=== PATIENT | male | born 1990 | race Caucasian/White ===

== ENCOUNTER → 2017-04-05 | Outpatient (CLI) | payer BC ==
--- NOTE | 2017-04-05 16:20 | CR ---
EXAMINATION: Lumbar spine HISTORY: Pain COMPARISON: None TECHNIQUE: AP and lateral views FINDINGS: The lumbar spinal alignment is normal. The vertebral body heights and disc spaces appear w ell-maintained. The SI joints are symmetric. Bone mineralization is normal. IMPRESSION: Unremarkable lumbar spine.
== END ==
LOC: MW.CHORTHO 11:19
PROVIDERS: ATTEND Orthopaedic Surgery
DX: M25.551 Pain in right hip (principal)
CPT/HCPCS: 72100; 72100-26

== ENCOUNTER 2017-05-21 07:53 | Emergency (ER) | payer BC ==
[2017-05-21] MEDS ORDERED: Ondansetron 4 MG/2 ML SDV IVPUSH ONE (08:10)
[2017-05-21] MEDS ORDERED: Sodium Chloride 0.9% 2.5 ML Syringe FLUSH PRN (08:10)
[2017-05-21] MEDS ORDERED: Sodium Chloride 0.9% 1,000 ML IV ONE (08:10)
[2017-05-21] MEDS ORDERED: Sodium Chloride 0.9% 10 ML Syringe FLUSH PRN (08:10)
[2017-05-21] MEDS ORDERED: Pantoprazole 40 MG Vial IVPUSH ONE (08:10)
--- NOTE | 2017-05-21 08:15 | EDM.PDOC ---
ED HPI GENERAL MEDICAL PROBLEM - General Chief Complaint: Abdominal Pain Stated Complaint: VOMITING BLOOD Time Seen by Provider: 05/21/17 07:59 - History of Present Illness INITIAL COMMENTS - FREE TEXT/NARRATIVE: HISTORY AND PHYSICAL: History of present illness: The patient is a 26-year-old male who denies any pre-existing medical problems presents with complaints of vomiting that started this morning, initially with food products and then he had just clear liquid with some blood.. The patient states he had some dry heaving and retching with this. He has no abdominal pain and he has not had black or bloody stools or diarrhea. Patient states that he drinks on a daily basis at least 1 pint of alcohol, he also drinks coffee and he has been taking aspirin based OTC products for back pain. He states that when he takes these products into his system he does not get abdominal pain. He says he's been drinking this volume of liquid every day for over one year and this is the first times a minute this is happened. Patient denies dizziness or lightheadedness and has no new chest pain shortness of breath or neurosensory changes in his extremities. He doesn't feel dizzy. Patient did not take any medications for these symptoms prior to arrival. Review of systems: As per history of present illness and below otherwise all systems reviewed and negative. Past medical history: As per history of present illness and as reviewed below otherwise noncontributory. Surgical history: As per history of present illness and as reviewed below otherwise noncontributory. Social history: No reported history of drug or alcohol abuse. Family history: As per history of present illness and as reviewed below otherwise noncontributory. Physical exam: General: Well-developed well-nourished thin man who is nontoxic and vital signs are noted by me. Moves easily in the ED without distress. HEENT: Atraumatic, normocephalic, pupils reactive, negative for conjunctival pallor or scleral icterus, mucous membranes moist, throat clear, neck supple, nontender, trachea midline. Lungs: Clear to auscultation, breath sounds equal bilaterally, chest nontender. Heart: S1S2, regular, negative for clicks, rubs, or JVD. Abdomen: Soft, nondistended, nontender. Normoactive bowel sounds Negative for masses or hepatosplenomegaly. Negative for costovertebral tenderness. Pelvis: Stable nontender. Genitourinary: Deferred. Rectal: Deferred. Extremities: Atraumatic, negative for cords or calf pain. Neurovascular unremarkable. Neuro: Awake, alert, oriented. Cranial nerves II through XII unremarkable. Cerebellum unremarkable. Motor and sensory unremarkable throughout. Exam nonfocal. Skin: Normal turgor no evidence of any rashes or lesions Diagnostics: CBC CMP amylase lipase INR EtOH Therapeutics: IV fluids Zofran protonix Reglan Benadryl The patient had a small amount of vomiting which had some darkish color to it. He is overall feeling better we'll go ahead and give a dose of Reglan and Benadryl. I discussed with the patient and his girlfriend at length all testing results and the need to go on antacids, control nausea and vomiting, behavioral changes with his alcohol caffeine use and to stop aspirin product usage. Also discussed with him the slight bump in his AST and ALT need to reduce and/or stop alcohol use. Patient has a provider at [facility], Dr Skaggs, which I encouraged him to follow-up with and I will refer him to our surgery clinic as well as he will likely need endoscopy. He states understanding and I've advised him on reasons to return Impression: Vomiting with some hematemesis, likely gastritis, and history of chronic alcohol and caffeine use and recent aspirin product usage Definitive disposition and diagnosis as appropriate pending reevaluation and review of above. - Related Data Allergies Allergy/AdvReac Type Severity Reaction Status Date / Time hydrocodone Allergy Intermediate Vomiting Verified 07/26/14 21:18 Home Meds: Home Meds . [No Known Home Meds] 07/26/14 [History] Past Medical History - Past Health History Medical/Surgical History: Denies Medical/Surgical History - Infectious Disease History Infectious Disease History: Reports: Chicken Pox, Mononucleosis Social & Family History - Tobacco Use Smoking Status *Q: Never Smoker Years of Tobacco use: 10 Used Tobacco, but Quit: No Second Hand Smoke Exposure: No - Caffeine Use Caffeine Use: Reports: Coffee - Alcohol Use Days Per Week of Alcohol Use: 5 Number of Drinks Per Day: 7 Total Drinks Per Week: 35 - Recreational Drug Use Recreational Drug Use: No ED ROS GENERAL - Review of Systems Review Of Systems: ROS reveals no pertinent complaints other than HPI. ED EXAM, GENERAL - Physical Exam Exam: See Below (See dictation) Course - Vital Signs Last Recorded V/S: Last Vital Signs Temp 36.4 C 05/21/17 08:01 Pulse 101 H 05/21/17 08:01 Resp 18 05/21/17 08:01 BP 135/101 H 05/21/17 08:01 Pulse Ox 97 05/21/17 08:01 - Orders/Labs/Meds Orders: Active Orders 24 hr Category Date Time Status Metoclopramide [Reglan] Med 05/21/17 09:13 Once 10 mg IV ONETIME ONE Sodium Chloride 0.9% [Saline Flush] Med 05/21/17 08:10 Active 10 ml FLUSH ASDIRECTED PRN Sodium Chloride 0.9% [Saline Flush] Med 05/21/17 08:10 Active 2.5 ml FLUSH ASDIRECTED PRN diphenhydrAMINE [Benadryl] Med 05/21/17 09:13 Once 50 mg IVPUSH ONETIME ONE Saline Lock Insert [OM.PC] Stat Oth 05/21/17 08:09 Ordered Medication Orders Diphenhydramine HCl (Benadryl) 50 mg IVPUSH ONETIME ONE Stop: 05/21/17 09:14 Metoclopramide HCl (Reglan) 10 mg IV ONETIME ONE Stop: 05/21/17 09:14 Sodium Chloride (Saline Flush) 10 ml FLUSH ASDIRECTED PRN PRN Reason: Keep Vein Open Last Admin: 05/21/17 08:28 Dose: 10 ml Sodium Chloride (Saline Flush) 2.5 ml FLUSH ASDIRECTED PRN PRN Reason: Keep Vein Open Last Admin: 05/21/17 08:28 Dose: 2.5 ml Labs: Laboratory Tests 05/21/17 05/21/17 05/21/17 Range/Units 08:13 08:13 08:13 WBC 7.22 (4.0-11.0) K/uL RBC 4.97 (4.50-5.90) M/uL Hgb 16.3 (13.0-17.0) g/dL Hct 46.5 (38.0-50.0) % MCV 93.6 (80.0-98.0) fL MCH 32.8 H (27.0-32.0) pg MCHC 35.1 (31.0-37.0) g/dL RDW Std Deviation 41.9 (28.0-62.0) fl RDW Coeff of Joseline 12 (11.0-15.0) % Plt Count 252 (150-400) K/uL MPV 10.90 (7.40-12.00) fL Neut % (Auto) 41.5 L (48.0-80.0) % Lymph % (Auto) 42.4 H (16.0-40.0) % [place] % (Auto) 12.2 (0.0-15.0) % Eos % (Auto) 2.9 (0.0-7.0) % Baso % (Auto) 1.0 (0.0-1.5) % Neut # (Auto) 3.0 (1.4-5.7) K/uL Lymph # (Auto) 3.1 H (0.6-2.4) K/uL [place] # (Auto) 0.9 H (0.0-0.8) K/uL Eos # (Auto) 0.2 (0.0-0.7) K/uL Baso # (Auto) 0.1 (0.0-0.1) K/uL Nucleated RBC % 0.0 /100WBC Nucleated RBCs # 0 K/uL INR 1.02 (0.86-1.11) Sodium 143 (136-146) mmol/L Potassium 4.3 (3.5-5.1) mmol/L Chloride 104 (98-110) mmol/L Carbon Dioxide 27 (21-31) mmol/L BUN 22 (6.0-23.0) mg/dL Creatinine 1.1 (0.6-1.5) mg/dL Est Cr Clr Drug Dosing 112.94 mL/min Estimated GFR (MDRD) > 60.0 ml/min Glucose 105 (60-110) mg/dL Calcium 9.6 (8.8-10.8) mg/dL Total Bilirubin 1.1 (0.1-1.5) mg/dL AST 67 H (5-40) IU/L ALT 63 H (8-54) IU/L Alkaline Phosphatase 72 (40-150) Total Protein 8.5 H (6.0-8.0) g/dL Albumin 5.0 (3.5-5.0) g/dL Globulin 3.5 (2.0-3.5) g/dL Albumin/Globulin Ratio 1.4 (1.3-2.8) Amylase 50 (10-90) U/L Lipase 16 (7-80) U/L Ethyl Alcohol 37.2 mg/dL Meds: Medications Generic Name Dose Route Start Last Admin Trade Name Freq PRN Reason Stop Dose Admin Diphenhydramine HCl 50 mg 05/21/17 09:13 Benadryl IVPUSH 05/21/17 09:14 ONETIME ONE Metoclopramide HCl 10 mg 05/21/17 09:13 Reglan IV 05/21/17 09:14 ONETIME ONE Sodium Chloride 10 ml 05/21/17 08:10 05/21/17 08:28 Saline Flush FLUSH 10 ml ASDIRECTED PRN Administration Keep Vein Open Sodium Chloride 2.5 ml 05/21/17 08:10 05/21/17 08:28 Saline Flush FLUSH 2.5 ml ASDIRECTED PRN Administration Keep Vein Open Discontinued Medications Generic Name Dose Route Start Last Admin Trade Name Freq PRN Reason Stop Dose Admin Sodium Chloride 1,000 mls @ 999 mls/hr 05/21/17 08:10 05/21/17 08:25 Normal Saline IV 05/21/17 09:10 999 mls/hr STAT ONE Administration Ondansetron HCl 4 mg 05/21/17 08:10 05/21/17 08:25 Zofran IVPUSH 05/21/17 08:11 4 mg ONETIME ONE Administration Pantoprazole Sodium 80 mg 05/21/17 08:10 05/21/17 08:25 Protonix Iv IVPUSH 05/21/17 08:11 80 mg .BOLUS ONE Administration Departure - Departure Time of Disposition: 09:16 Disposition: Home, Self-Care 01 Condition: Good Clinical Impression: Vomiting Qualifiers: Vomiting type: unspecified Vomiting Intractability: non-intractable Nausea presence: with nausea Qualified Code(s): R11.2 - Nausea with vomiting, unspecified Hematemesis/vomiting blood Qualifiers: Nausea presence: with nausea Qualified Code(s): K92.0 - Hematemesis; R11.0 - Nausea Gastritis Qualifiers: Gastritis type: unspecified gastritis Chronicity: acute Gastritis bleeding: with bleeding Qualified Code(s): K29.01 - Acute gastritis with bleeding - Discharge Information Referrals: PCP,None [Primary Care Provider] - Forms: ED Department Discharge Additional Instructions: The following information is given to patients seen in the emergency department who are being discharged to home. This information is to outline your options for follow-up care. We provide all patients seen in our emergency department with a follow-up referral. The need for follow-up, as well as the timing and circumstances, are variable depending upon the specifics of your emergency department visit. If you don't have a primary care physician on staff, we will provide you with a referral. We always advise you to contact your personal physician following an emergency department visit to inform them of the circumstance of the visit and for follow-up with them and/or the need for any referrals to a consulting specialist. The emergency department will also refer you to a specialist when appropriate. This referral assures that you have the opportunity for followup care with a specialist. All of these measure are taken in an effort to provide you with optimal care, which includes your followup. Under all circumstances we always encourage you to contact your private physician who remains a resource for coordinating your care. When calling for followup care, please make the office aware that this follow-up is from your recent emergency room visit. If for any reason you are refused follow-up, please contact the [facility] emergency department at and ask to speak to the emergency department charge nurse. [address] [place] [address] [facility] Specialty Care-General Surgery Professional Building [address] [place] [id number] Please try to reduce and/or stop alcohol use and stopped using aspirin based products and switch to Tylenol based products for any pain you may have. Please take the Prevacid as prescribed and try to also reduce caffeine intake. Please call and follow-up with primary care, Dr Skaggs, at [facility] and also call our surgery clinic to be evaluated for possible endoscopy. Return to ER as needed and as discussed. Zofran as needed or nausea and vomiting. - My Orders Last 24 Hours: My Active Orders 05/21/17 08:09 Saline Lock Insert [OM.PC] Stat 05/21/17 08:10 Sodium Chloride 0.9% [Saline Flush] 10 ml FLUSH ASDIRECTED PRN Sodium Chloride 0.9% [Saline Flush] 2.5 ml FLUSH ASDIRECTED PRN 05/21/17 09:13 Metoclopramide [Reglan] 10 mg IV ONETIME ONE diphenhydrAMINE [Benadryl] 50 mg IVPUSH ONETIME ONE - Assessment/Plan Last 24 Hours: My Active Orders 05/21/17 08:09 Saline Lock Insert [OM.PC] Stat 05/21/17 08:10 Sodium Chloride 0.9% [Saline Flush] 10 ml FLUSH ASDIRECTED PRN Sodium Chloride 0.9% [Saline Flush] 2.5 ml FLUSH ASDIRECTED PRN 05/21/17 09:13 Metoclopramide [Reglan] 10 mg IV ONETIME ONE diphenhydrAMINE [Benadryl] 50 mg IVPUSH ONETIME ONE
[2017-05-21 08:44] LABS: CHLORIDE,CL 104 mmol/L (98-110); SODIUM,NA 143 mmol/L (136-146)
[2017-05-21] MEDS ORDERED: Metoclopramide 10 MG/2 ML SDV IV ONE (09:13)
[2017-05-21] MEDS ORDERED: diphenhydrAMINE 50 MG/ML SDV IVPUSH ONE (09:13)
[2017-05-21 09:45] VITALS: BP 134/87
== END 2017-05-21 09:45 | disposition home or self-care (01) ==
LOC: MW.ED 07:53
DX: K29.01 Acute gastritis with bleeding (principal); Z88.8 Allergy status to other drugs, medicaments and biological substances
CPT/HCPCS: 80053; 82150; 83690; 85025; 85610; 96361; 96374; 96375; 99285; C9113; G0480; J1200; J2405; J2765; J7040; 99284

== ENCOUNTER 2021-03-22 22:05 | Observation (INO) | payer BC, OTHER ==
[2021-03-22] MEDS ORDERED: chlordiazePOXIDE 25 MG Cap PO ONE (22:08)
[2021-03-22] MEDS ORDERED: MVI, Adult with Vitamin K 10 ML, Thiamine 100 MG, Folic Acid 1 MG in Sodium Chloride 0.... IV ONE ×4 (22:08)
[2021-03-22] MEDS ORDERED: LORazepam 2 MG/ML SDV IVPUSH ONE (22:09)
[2021-03-22] MEDS ORDERED: Dextrose 5%-0.9% NaCl 1,000 ML IV SCH (22:15)
[2021-03-22 22:32] LABS: BLOOD UREA NITROGEN,BUN 3 mg/dL (7.0-18.0); CARBON DIOXIDE,CO2 27.1 mmol/L (21.0-32.0); CHLORIDE,CL 94 mmol/L (98-107); GLUCOSE RANDOM 180 mg/dL (74-106); SODIUM,NA 134 mmol/L (136-148)
[2021-03-22] MEDS ORDERED: Potassium Chloride Riders 40 MEQ in Premix Bag 1 BAG IV ONE (23:04)
[2021-03-22] MEDS ORDERED: Potassium Chloride 10% 20 MEQ/15 ML Soln 30 ML UD Cup PO ONE (23:04)
[2021-03-23] MEDS ORDERED: chlordiazePOXIDE 10 MG Cap PO ONE ×2 (01:24→04:15)
[2021-03-23] MEDS ORDERED: Ondansetron 4 MG/2 ML SDV IVPUSH PRN (01:42)
[2021-03-23] MEDS ORDERED: Albuterol/Ipratropium 3.0-0.5 MG/3 ML Neb Soln NEB PRN (01:42)
[2021-03-23] MEDS ORDERED: LORazepam 2 MG/ML SDV IVPUSH PRN ×2 (01:45→01:49)
--- NOTE | 2021-03-23 03:12 | PCM.EKG ---
#1 Interpretation EKG Date: 03/22/21 Time: 22:59 Rhythm: NSR Rate (Beats/Min): 89 [place]: Normal P-Wave: Present QRS: Normal ST-T: Normal QT: Normal Comparison: NA - No Prior EKG EKG Interpretation Comments: Sinus Rhythm
--- NOTE | 2021-03-23 04:08 | EDM.PDOC ---
ED HPI GENERAL MEDICAL PROBLEM - General Chief Complaint: Neurological Problem Stated Complaint: DETOX Time Seen by Provider: 03/22/21 22:06 - History of Present Illness INITIAL COMMENTS - FREE TEXT/NARRATIVE: CHIEF COMPLAINT(S): Seizure HISTORY OF PRESENT ILLNESS: This is a 30-year-old man and with a past medical history of alcohol use disorder who comes to the emergency department with a chief complaint of seizure. Patient was brought in by EMS from [place], [place] for seizure. Per EMS the patient was stable in route and was not postictal. No medications were provided and the patient was hypertensive and tachycardic in route. Per EMS report the patient had an unknown his seizure lasting approximately less than 5 minutes. No known history of seizure disorder. The patient stated that he is an alcoholic and that he has been drinking 1/5 of hard liquor a day for quite some time. He states that he was trying to quit and quit approximately 4 days ago. He states that at home he was shaking, had vomiting, nausea, and headache which had resolved and then apparently had a seizure today. He denies any history of alcohol withdrawal seizures but has a history of alcohol withdrawal and delirium tremens in the past. He denies any chest pain, shortness of breath, headache, nausea, vomiting, abdominal pain. He denies any fevers or chills. REVIEW OF SYSTEMS: Constitutional: Denies fever, chills. Eyes: Denies eye pain Ears, Nose, Mouth, & Throat: Denies earache Cardiovascular: Denies chest pain Respiratory: Denies shortness of breath Gastrointestinal: Denies Nausea, vomiting, diarrhea, hematochezia. Genitourinary: Denies hematuria Skin:Denies a rash MSK: Denies joint pain Neurological: Positive for seizure. Denies headache, blurred vision, loss of vision, numbness, tingling, weakness Psychiatric: Denies depression PAST MEDICAL HISTORY: As per history of present illness and as reviewed below otherwise noncontributory. SURGICAL HISTORY: As per history of present illness and as reviewed below otherwise noncontributory. SOCIAL HISTORY: As per history of present illness and as reviewed below otherwise noncontributory. FAMILY HISTORY: As per history of present illness and as reviewed below otherwis e noncontributory. EXAMINATION OF ORGAN SYSTEMS/BODY AREAS: Constitutional: Blood pressure is 185/121, heart rate 116, respiratory rate 18 with an oxygen saturation 95% on room air. Temperature 36.5 General: Overall well-appearing man who is in no acute distress Psychiatric: Appropriate mood and affect. Eyes: No scleral icterus or conjunctival erythema pupils are equal round and reactive to light. Extraocular movements intact. ENMT: Moist mucous membranes. No pharyngeal erythema tongue protrudes midline with visible fasciculations. There is evidence of tongue biting without any through and through laceration. No active bleeding. Cardiovascular: Tachycardic but regular no gallops, murmurs, or rubs. Bilateral upper extremity pulses symmetric and intact. No peripheral edema. No JVD. Respiratory: Lungs clear to auscultation bilaterally. No wheezes, rales, or rhonchi. Gastrointestinal: Soft, non-tender, non-distended. Normoactive bowel sounds Genitourinary: No suprapubic tenderness Musculoskeletal: Normal range of motion. The patient has tremors of his hands with his arms held out which are visible. Skin: No lesions or abrasions. Palms are mildly clammy. Neurological: AOx4. CN grossly intact. Strength 5/5 in bilateral upper and lower extremity. Sensation is intact bilaterally in upper and lower extremity. Gait appears normal. Finger to nose, heel to baer, rapid alternating movements intact. MEDICAL DECISION MAKING AND COURSE IN THE ED WITH INTERPRETATION/REVIEW OF DIAGNOSTIC STUDIES: This is a 30-year-old and with a past medical history of alcohol use disorder who comes to the emergency department with what appears to be alcohol withdrawal seizure who has not had an alcoholic drink in approximately 4 days. At this time given the patient's description of his symptoms at home I do believe he is on the tail end of alcohol withdrawal however given the seizure we will provide the patient with 2 mg of IV Ativan. The patient currently has a CIWA score of 6. We will place the patient on cardiac monitoring and pulse oximetry. We will provide the patient with 1 L of D5 normal saline and a banana bag. Will obtain labs and EKG. Will obtain a Covid swab. After Ativan the patient's heart rate had decreased and his blood pressure had also improved. The patient's fasciculations had also improved. At this time we will reevaluate. Laboratory: CBC is unremarkable except for some thrombocytopenia at 111. CMP reveals hyponatremia at 134, hypokalemia at 3.0, hypochloremia at 94, hyperglycemia 180, evidence of alcoholic hepatitis with an AST of 226, ALT of 79 and a total bilirubin of 2.0. Magnesium is normal. Serum alcohol is negative. Covid is negative. After labs I did provide the patient with potassium supplementation. After period of observation the patient did have return of some mild tremors and tongue fasciculations with increasing tachycardia and hypertension. I do believe the patient will require more management for his alcohol withdrawal. I did discuss this with patient and at bedside. They were amenable at this time. I contacted Dr. Schmidt who accepted the patient for admission. Given the increased tachycardia and tremors I did provide the patient with Librium by mouth. DISPOSITION: Patient was admitted to telemetry in stable condition CONDITION: Fair PROCEDURES: None FINAL IMPRESSION(S)/DIAGNOSES: 1. Acute alcohol withdrawal seizure 2. Acute alcohol withdrawal 3. Acute alcoholic hepatitis Brian Lakhani M.D. - Related Data Allergies Allergy/AdvReac Type Severity Reaction Status Date / Time hydrocodone Allergy Intermediate Vomiting Verified 03/22/21 22:07 Home Meds: Home Meds . [No Known Home Meds] 07/26/14 [History] Past Medical History - Past Health History Medical/Surgical History: Denies Medical/Surgical History - Infectious Disease History Infectious Disease History: Reports: Chicken Pox, Mononucleosis, Novel Coronavirus Social & Family History - Caffeine Use Caffeine Use: Reports: Coffee ED ROS GENERAL - Review of Systems Review Of Systems: See Below ED EXAM, GENERAL - Physical Exam Exam: See Below Course - Vital Signs Last Recorded V/S: Last Vital Signs Temp 37.1 C 03/23/21 02:30 Pulse 88 03/23/21 02:30 Resp 18 03/23/21 02:30 BP 153/102 H 03/23/21 02:30 Pulse Ox 99 03/23/21 02:30 - Orders/Labs/Meds Orders: Medication Orders Albuterol/Ipratropium (Albuterol/Ipratropium 3.0-0.5 Mg/3 Ml Neb Soln) 3 ml NEB Q4HRRT PRN PRN Reason: Shortness Of Breath/wheezing Chlordiazepoxide HCl (Chlordiazepoxide 10 Mg Cap) 10 mg PO BID COLEEN Enoxaparin Sodium (Enoxaparin 40 Mg/0.4 Ml Syringe) 40 mg SUBCUT Q24H COLE[place] Folic Acid (Folic Acid 50 Mg/10 Ml Mdv) 1 mg IV DAILY COLEEN Lactated Ringer's (Ringers, Lactated) 1,000 mls @ 125 mls/hr IV ASDIRECTED [facility] Thiamine HCl 100 mg/ Sodium (Chloride) 101 mls @ 202 mls/hr IV DAILY COLEEN Lorazepam (Lorazepam 2 Mg/Ml Sdv) 0 mg IVPUSH Q2H PRN; Protocol PRN Reason: Withdrawal Symptoms Lorazepam (Lorazepam 2 Mg/Ml Sdv) 2 mg IVPUSH Q3H PRN PRN Reason: Seizures Ondansetron HCl (Ondansetron 4 Mg/2 Ml Sdv) 4 mg IVPUSH Q4H PRN PRN Reason: Nausea/Vomiting Labs: Laboratory Tests 03/22/21 03/22/21 03/22/21 Range/Units 22:08 22:08 23:24 WBC 4.06 (4.0-11.0) K/uL RBC 5.08 (4.50-5.90) M/uL Hgb 17.1 H (13.0-17.0) g/dL Hct 47.5 (38.0-50.0) % MCV 93.5 (80.0-98.0) fL MCH 33.7 H (27.0-32.0) pg MCHC 36.0 (31.0-37.0) g/dL RDW Std Deviation 43.7 (28.0-62.0) fl RDW Coeff of Joseline 13 (11.0-15.0) % Plt Count 111 L (150-400) K/uL MPV 11.40 (7.40-12.00) fL Neut % (Auto) 59.3 (48.0-80.0) % Lymph % (Auto) 19.7 (16.0-40.0) % [place] % (Auto) 20.0 H (0.0-15.0) % Eos % (Auto) 0.5 (0.0-7.0) % Baso % (Auto) 0.5 (0.0-1.5) % Neut # (Auto) 2.4 (1.4-5.7) K/uL Lymph # (Auto) 0.8 (0.6-2.4) K/uL [place] # (Auto) 0.8 (0.0-0.8) K/uL Eos # (Auto) 0.0 (0.0-0.7) K/uL Baso # (Auto) 0.0 (0.0-0.1) K/uL Nucleated RBC % 0.0 /100WBC Nucleated RBCs # 0 K/uL Sodium 134 L (136-148) mmol/L Potassium 3.0 L (3.5-5.1) mmol/L Chloride 94 L (98-107) mmol/L Carbon Dioxide 27.1 (21.0-32.0) mmol/L BUN 3 L (7.0-18.0) mg/dL Creatinine 1.2 (0.8-1.3) mg/dL Est Cr Clr Drug Dosing 94.08 mL/min Estimated GFR (MDRD) > 60.0 ml/min Glucose 180 H (74-106) mg/dL Calcium 9.7 (8.5-10.1) mg/dL Magnesium 1.9 (1.8-2.4) mg/dL Total Bilirubin 2.0 H (0.2-1.0) mg/dL AST 226 H (15-37) IU/L ALT 79 H (14-63) IU/L Alkaline Phosphatase 98 (46-116) U/L Total Protein 8.2 (6.4-8.2) g/dL Albumin 4.2 (3.4-5.0) g/dL Globulin 4.0 (2.6-4.0) g/dL Albumin/Globulin Ratio 1.0 (0.9-1.6) Ethyl Alcohol < 3.0 mg/dL SARS-CoV-2 RNA (HILDA) NEGATIVE (NEGATIVE) Meds: Medications Generic Name Dose Route Start Last Admin Trade Name Freq PRN Reason Stop Dose Admin Albuterol/Ipratropium 3 ml 03/23/21 01:42 Albuterol/Ipratropium 3.0-0.5 Mg/3 Ml Neb Soln NEB Q4HRRT PRN Shortness Of Breath/wheezing Chlordiazepoxide HCl 10 mg 03/23/21 09:00 Chlordiazepoxide 10 Mg Cap PO BID COLEEN Enoxaparin Sodium 40 mg 03/23/21 01:45 Enoxaparin 40 Mg/0.4 Ml Syringe SUBCUT Q24H [place] Folic Acid 1 mg 03/23/21 09:00 Folic Acid 50 Mg/10 Ml Mdv IV DAILY COLE[place] Lactated Ringer's 1,000 mls @ 125 mls/hr 03/23/21 02:00 Ringers, Lactated IV ASDIRECTED [facility] Thiamine HCl 100 mg/ Sodium 101 mls @ 202 mls/hr 03/23/21 09:00 Chloride IV DAILY [facility] Lorazepam 0 mg 03/23/21 01:45 Lorazepam 2 Mg/Ml Sdv IVPUSH Q2H PRN Withdrawal Symptoms Protocol Lorazepam 2 mg 03/23/21 01:49 Lorazepam 2 Mg/Ml Sdv IVPUSH Q3H PRN Seizures Ondansetron HCl 4 mg 03/23/21 01:42 Ondansetron 4 Mg/2 Ml Sdv IVPUSH Q4H PRN Nausea/Vomiting Discontinued Medications Generic Name Dose Route Start Last Admin Trade Name Freq PRN Reason Stop Dose Admin Chlordiazepoxide HCl 25 mg 03/22/21 22:08 03/22/21 22:26 Chlordiazepoxide 25 Mg Cap PO 03/22/21 22:09 Not Given ONETIME ONE Chlordiazepoxide HCl 10 mg 03/23/21 01:24 Chlordiazepoxide 10 Mg Cap PO 03/23/21 01:25 ONETIME ONE Multivitamins/Minerals 10 ml/ 1,011.2 mls @ 999 mls/hr 03/22/21 22:08 03/22/21 22:39 Thiamine HCl 100 mg/ Folic IV 03/22/21 23:08 999 mls/hr Acid 1 mg/ Sodium Chloride ONETIME ONE Administration Dextrose/Sodium Chloride 1,000 mls @ 999 mls/hr 03/22/21 22:15 03/22/21 22:38 Dextrose 5%-Normal Saline IV 999 mls/hr ASDIRECTED [facility] Administration Potassium Chloride 40 meq/ 100 mls @ 25 mls/hr 03/22/21 23:04 03/22/21 23:48 Premix IV 03/23/21 03:03 25 mls/hr ONETIME ONE Administration Lorazepam 2 mg 03/22/21 22:09 03/22/21 22:20 Lorazepam 2 Mg/Ml Sdv IVPUSH 03/22/21 22:10 2 mg ONETIME ONE Administration Potassium Chloride 40 meq 03/22/21 23:04 03/22/21 23:48 Potassium Chloride 10% 20 Meq/15 Ml Soln 30 Ml Ud Cup PO 03/22/21 23:05 40 meq ONETIME ONE Administration Departure - Departure Time of Disposition: :25 Disposition: Still A Patient 30 Condition: Fair Clinical Impression: Alcohol withdrawal - Discharge Information Sepsis Event Note (ED) - Evaluation Sepsis Screening Result: No Definite Risk - Focused Exam Vital Signs: Vital Signs Temp Pulse Resp BP Pulse Ox 03/23/21 01:24 94 146/106 H 99 03/23/21 01:04 113 H 170/121 H 98 03/23/21 00:24 92 160/114 H 99 03/23/21 00:04 85 155/107 H 99 03/22/21 23:44 99 116/114 H 98 03/22/21 23:09 98 143/104 H 99 03/22/21 22:16 36.5 C 116 H 18 185/121 H 95
[2021-03-23] MEDS: Enoxaparin 40 MG/0.4 ML Syringe SUBCUT SCH (04:26)
[2021-03-23] MEDS: Lactated Ringers 1,000 ML IV SCH ×3 (04:42→23:15)
[2021-03-23 06:57] LABS: BLOOD UREA NITROGEN,BUN 2 mg/dL (7.0-18.0); CARBON DIOXIDE,CO2 25.6 mmol/L (21.0-32.0); CHLORIDE,CL 102 mmol/L (98-107); GLUCOSE RANDOM 96 mg/dL (74-106); POTASSIUM,K 3.7 mmol/L (3.5-5.1); SODIUM,NA 138 mmol/L (136-148)
[2021-03-23] MEDS ORDERED: Magnesium Sulfate/Water 2 GM/50 ML BAG IV ONE (08:29)
--- NOTE | 2021-03-23 08:30 | PCM.HP.2 ---
H&P History of Present Illness - General Date of Service: 03/23/21 Admit Problem/Dx: Admission Diagnosis/Problem Admission Diagnosis/Problem Alcohol withdrawal syndrome Source of Information: Patient History Limitations: Reports: No Limitations - History of Present Illness Initial Comments - Free Text/Narative: This 30-year-old male with past medical history of alcohol abuse and multiple episodes of alcohol withdrawal. Presented to the ER via EMS after having a seizure at home from alcohol withdrawal. He reports that he quit drinking approximately 5 days ago as he is struggling with social and employment due to his drinking. He reports that he was at home with his he apparently was talking to her she got up and walked away and then he suddenly started having seizure-like activity when she walked in the room. Seizure resolved on its own she called the ambulance for further help. Patient was very confused upon waking up and had not knowing what had happened. He reports that he drinks upwards of fifth of hard alcohol daily and has been drinking more recently. He reports that he has never had a seizure in the past before and has withdrawn any times by himself at home without medical attention. He reports he did see a recent family physician that gave him medication naltrexone as well as an antianxiety medication to help with withdrawals but he feels the naltrexone just makes him sleepy. He reports he has not gone to inpatient rehab has done any of this on his own but has not had long periods of sobriety. He feels that his anxiety is a big trigger for his drinking and then once he drinks he cannot stop. He denies any chest pain shortness of breath or fevers. He denies any abdominal pain dysuria or black or bloody stools. He reports he is feeling much better today less tremulous and is actually wanting to go home. He is seeking for medication to help with withdrawals. In the ER CBC noted thrombocytopenia at 111,000. Sodium 134 potassium 3.0 chloride 94. Glucose is 180. Bilirubin 2.0 AST 226 ALT 79. Alcohol level negative Covid negative. EKG in the ER revealed sinus rhythm rate 89 with no signs of ischemia. Vital signs have been stable but does show elevated blood pressure likely secondary to alcohol withdrawal. In the ER he was given potassium along with banana bag. He was given Librium 10 mg. He was admitted for seizure likely secondary to acute alcohol withdrawal. - Related Data Allergies/Adverse Reactions: Allergies Allergy/AdvReac Type Severity Reaction Status Date / Time hydrocodone Allergy Intermediate Vomiting Verified 03/23/21 04:19 Home Medications: Home Meds . [No Known Home Meds] 07/26/14 [History] Past Medical History - Past Health History Medical/Surgical History: Denies Medical/Surgical History Cardiovascular History: Reports: None. Denies: CAD, Hypertension, ID Respiratory History: Reports: None. Denies: Asthma, COPD, Sleep Apnea Gastrointestinal History: Reports: None Genitourinary History: Reports: None Musculoskeletal History: Reports: None Psychiatric History: Reports: Addiction, Anxiety, Depression Endocrine/Metabolic History: Reports: None. Denies: Diabetes, Type II, Obesity/BMI 30+ - Infectious Disease History Infectious Disease History: Reports: Chicken Pox, Mononucleosis, Novel Coronavirus - Past Surgical History GI Surgical History: Reports: None Social & Family History - Caffeine Use Caffeine Use: Reports: Energy Drinks, Soda - Alcohol Use Days Per Week of Alcohol Use: 7 Number of Drinks Per Day: 7 Total Drinks Per Week: 49 Date of Last Drink: 03/19/21 Alcohol Use Frequency: Daily - Recreational Drug Use Recreational Drug Use: No - Living Situation & Occupation Living situation: Reports: Occupation: Unemployed H&P Review of Systems - Review of Systems: Review Of Systems: See Below General: Reports: Malaise (Generalized). Denies: Fever, Chills, Weakness HEENT: Reports: No Symptoms. Denies: Headaches, Sinus Congestion, Sore Throat Pulmonary: Reports: No Symptoms. Denies: Shortness of Breath Cardiovascular: Reports: No Symptoms. Denies: Chest Pain Gastrointestinal: Reports: No Symptoms. Denies: Abdominal Pain, Decreased Appetite, Vomiting Genitourinary: Reports: No Symptoms. Denies: Dysuria, Frequency, Burning Skin: Reports: No Symptoms Psychiatric: Reports: Anxiety. Denies: Suicidal Ideation, Hallucinations (Auditory), Hallucinations (Visual) Neurological: Reports: Tremors (Mild) Hematologic/Lymphatic: Reports: No Symptoms Immunologic: Reports: No Symptoms Exam - Exam Exam: See Below - Vital Signs Vital Signs: Last Vital Signs Temp 97.7 F 03/23/21 08:00 Pulse 91 03/23/21 08:00 Resp 20 03/23/21 08:00 BP 160/114 H 03/23/21 08:00 Pulse Ox 98 03/23/21 08:00 Weight: 72.575 kg - Exam General: Alert, Oriented, Cooperative HEENT: Conjunctiva Clear, Mucosa Moist & [place], Posterior Pharynx Clear Neck: Supple, Trachea Midline Lungs: Clear to Auscultation, Normal Respiratory Effort Cardiovascular: Regular Rate, Regular Rhythm GI/Abdominal Exam: Normal Bowel Sounds, Soft, Non-Tender Back Exam: Normal Inspection, Full Range of Motion Extremities: Normal Inspection, Normal Range of Motion, Non-Tender, No Pedal Edema Skin: Warm, Dry Neuro Extensive - Mental Status: Alert, Oriented x3 Neuro Extensive - Motor, Sensory, Reflexes: CN II-XII Intact Psychiatric: Anxious, Withdrawal Symptoms (Tremors noted) - Patient Data Lab Results Last 24 hrs: Laboratory Results - last 24 hr 03/22/21 03/22/21 03/22/21 Range/Units 22:08 22:08 23:24 WBC 4.06 (4.0-11.0) K/uL RBC 5.08 (4.50-5.90) M/uL Hgb 17.1 H (13.0-17.0) g/dL Hct 47.5 (38.0-50.0) % MCV 93.5 (80.0-98.0) fL MCH 33.7 H (27.0-32.0) pg MCHC 36.0 (31.0-37.0) g/dL RDW Std Deviation 43.7 (28.0-62.0) fl RDW Coeff of Joseline 13 (11.0-15.0) % Plt Count 111 L (150-400) K/uL MPV 11.40 (7.40-12.00) fL Neut % (Auto) 59.3 (48.0-80.0) % Lymph % (Auto) 19.7 (16.0-40.0) % Pierce % (Auto) 20.0 H (0.0-15.0) % Eos % (Auto) 0.5 (0.0-7.0) % Baso % (Auto) 0.5 (0.0-1.5) % Neut # (Auto) 2.4 (1.4-5.7) K/uL Lymph # (Auto) 0.8 (0.6-2.4) K/uL Pierce # (Auto) 0.8 (0.0-0.8) K/uL Eos # (Auto) 0.0 (0.0-0.7) K/uL Baso # (Auto) 0.0 (0.0-0.1) K/uL Nucleated RBC % 0.0 /100WBC Nucleated RBCs # 0 K/uL Sodium 134 L (136-148) mmol/L Potassium 3.0 L (3.5-5.1) mmol/L Chloride 94 L (98-107) mmol/L Carbon Dioxide 27.1 (21.0-32.0) mmol/L BUN 3 L (7.0-18.0) mg/dL Creatinine 1.2 (0.8-1.3) mg/dL Est Cr Clr Drug Dosing 94.08 mL/min Estimated GFR (MDRD) > 60.0 ml/min Glucose 180 H (74-106) mg/dL Calcium 9.7 (8.5-10.1) mg/dL Phosphorus (2.6-4.7) mg/dL Magnesium 1.9 (1.8-2.4) mg/dL Total Bilirubin 2.0 H (0.2-1.0) mg/dL AST 226 H (15-37) IU/L ALT 79 H (14-63) IU/L Alkaline Phosphatase 98 (46-116) U/L Total Protein 8.2 (6.4-8.2) g/dL Albumin 4.2 (3.4-5.0) g/dL Globulin 4.0 (2.6-4.0) g/dL Albumin/Globulin Ratio 1.0 (0.9-1.6) Ethyl Alcohol < 3.0 mg/dL SARS-CoV-2 RNA (HILDA) NEGATIVE (NEGATIVE) 03/23/21 03/23/21 Range/Units 05:45 05:45 WBC 8.67 (4.0-11.0) K/uL RBC 4.71 (4.50-5.90) M/uL Hgb 15.2 (13.0-17.0) g/dL Hct 44.7 (38.0-50.0) % MCV 94.9 (80.0-98.0) fL MCH 32.3 H (27.0-32.0) pg MCHC 34.0 (31.0-37.0) g/dL RDW Std Deviation 45.1 (28.0-62.0) fl RDW Coeff of Joseline 13 (11.0-15.0) % Plt Count 104 L (150-400) K/uL MPV 11.60 (7.40-12.00) fL Neut % (Auto) 78.7 (48.0-80.0) % Lymph % (Auto) 9.8 L (16.0-40.0) % Pierce % (Auto) 11.2 (0.0-15.0) % Eos % (Auto) 0.2 (0.0-7.0) % Baso % (Auto) 0.1 (0.0-1.5) % Neut # (Auto) 6.8 H (1.4-5.7) K/uL Lymph # (Auto) 0.9 (0.6-2.4) K/uL Pierce # (Auto) 1.0 H (0.0-0.8) K/uL Eos # (Auto) 0.0 (0.0-0.7) K/uL Baso # (Auto) 0.0 (0.0-0.1) K/uL Nucleated RBC % 0.0 /100WBC Nucleated RBCs # 0 K/uL Sodium 138 (136-148) mmol/L Potassium 3.7 (3.5-5.1) mmol/L Chloride 102 (98-107) mmol/L Carbon Dioxide 25.6 (21.0-32.0) mmol/L BUN 2 L (7.0-18.0) mg/dL Creatinine 0.9 (0.8-1.3) mg/dL Est Cr Clr Drug Dosing 125.44 mL/min Estimated GFR (MDRD) > 60.0 ml/min Glucose 96 (74-106) mg/dL Calcium 8.7 (8.5-10.1) mg/dL Phosphorus 2.4 L (2.6-4.7) mg/dL Magnesium 1.7 L (1.8-2.4) mg/dL Total Bilirubin 2.2 H (0.2-1.0) mg/dL AST 204 H (15-37) IU/L ALT 63 (14-63) IU/L Alkaline Phosphatase 82 (46-116) U/L Total Protein 7.2 (6.4-8.2) g/dL Albumin 3.7 (3.4-5.0) g/dL Globulin 3.5 (2.6-4.0) g/dL Albumin/Globulin Ratio 1.1 (0.9-1.6) Ethyl Alcohol mg/dL SARS-CoV-2 RNA (HILDA) (NEGATIVE) Result Diagrams: 03/23/21 05:45 03/23/21 05:45 Sepsis Event Note - Evaluation Sepsis Screening Result: No Definite Risk - Focused Exam Vital Signs: Vital Signs Temp Pulse Resp BP Pulse Ox 03/23/21 08:00 97.7 F 91 20 160/114 H 98 03/23/21 02:30 98.7 F 88 18 153/102 H 99 03/23/21 02:04 83 149/106 H 98 03/23/21 01:44 100 153/103 H 99 03/23/21 01:24 94 146/106 H 99 03/23/21 01:04 113 H 170/121 H 98 03/23/21 00:24 92 160/114 H 99 03/23/21 00:04 85 155/107 H 99 03/22/21 23:44 99 116/114 H 98 03/22/21 23:09 98 143/104 H 99 03/22/21 22:16 97.7 F 116 H 18 185/121 H 95 - Problem List (1) Alcohol withdrawal SNOMED Code(s): 976060673 ICD Code: F10.239 - ALCOHOL DEPENDENCE WITH WITHDRAWAL, UNSPECIFIED Status: Acute Current Visit: Yes (2) Seizure due to alcohol withdrawal SNOMED Code(s): 224711397 ICD Code: F10.239 - ALCOHOL DEPENDENCE WITH WITHDRAWAL, UNSPECIFIED; R56.9 - UNSPECIFIED CONVULSIONS Status: Acute Current Visit: Yes (3) Anxiety SNOMED Code(s): 21842170 ICD Code: F41.9 - ANXIETY DISORDER, UNSPECIFIED Status: Chronic Current Visit: Yes (4) Alcohol abuse SNOMED Code(s): 13734407 ICD Code: F10.10 - ALCOHOL ABUSE, UNCOMPLICATED Status: Chronic Current Visit: Yes Problem List Initiated/Reviewed/Updated: Yes Orders Last 24hrs: Active Orders 24 hr Category Date Time Status Admission Status [Patient Status] [ADT] Stat ADT 03/23/21 01:25 Active Ambulate [RC] ASDIRECTED Care 03/23/21 01:42 Active Antiembolic Devices [RC] PER UNIT ROUTINE Care 03/23/21 01:44 Active CIWAA Assessment [RC] Q4H Care 03/23/21 01:53 Active Oxygen Therapy [RC] PRN Care 03/23/21 01:42 Active Pulse Oximetry [RC] PRN Care 03/23/21 01:43 Active RT Aerosol Therapy [RC] ASDIRECTED Care 03/23/21 01:44 Active Telemetry Monitoring [Cardiac Monitoring] [RC] Q8H Care 03/23/21 02:39 Active VTE/DVT Education [RC] PER UNIT ROUTINE Care 03/23/21 01:42 Active Vital Signs [RC] Q4H Care 03/23/21 01:42 Active Regular Diet [DIET] Diet 03/23/21 Breakfast Active Albuterol/Ipratropium [DuoNeb 3.0-0.5 MG/3 ML] Med 03/23/21 01:42 Active 3 ml NEB Q4HRRT PRN Enoxaparin [Lovenox] Med 03/23/21 01:45 Active 40 mg SUBCUT Q24H Folic Acid Med 03/23/21 09:00 Active 1 mg IV DAILY LORazepam [Ativan] Med 03/23/21 01:49 Active 2 mg IVPUSH Q3H PRN LORazepam [Ativan] Med 03/23/21 01:45 Active See Protocol IVPUSH Q2H PRN Lactated Ringers [Ringers, Lactated] 1,000 ml Med 03/23/21 02:00 Active IV ASDIRECTED Magnesium Sulfate 2 GM ONETIME Med 03/23/21 08:29 Ordered Magnesium Sulfate/Water [Magnesium Sulfate in Water 2 GM/50 ML] 2 gm in 50 ml IV ONETIME Ondansetron [Zofran] Med 03/23/21 01:42 Active 4 mg IVPUSH Q4H PRN Phosphorus #1 [Neutra-Phos] Med 03/23/21 09:00 Ordered 250 mg PO QID Thiamine [Vitamin B-1] 100 mg Med 03/23/21 09:00 Active Sodium Chloride 0.9% [Normal Saline] 100 ml IV DAILY chlordiazePOXIDE [Librium] Med 03/23/21 09:00 Active 10 mg PO BID Sequential Compression Device [OM.PC] Per Unit Routine Oth 03/23/21 01:43 Ordered Resuscitation Status Routine Resus Stat 03/23/21 01:42 Ordered Medication Orders Albuterol/Ipratropium (Albuterol/Ipratropium 3.0-0.5 Mg/3 Ml Neb Soln) 3 ml NEB Q4HRRT PRN PRN Reason: Shortness Of Breath/wheezing Chlordiazepoxide HCl (Chlordiazepoxide 10 Mg Cap) 10 mg PO BID [facility] Enoxaparin Sodium (Enoxaparin 40 Mg/0.4 Ml Syringe) 40 mg SUBCUT Q24H [facility] Last Admin: 03/23/21 04:26 Dose: Not Given Documented by: [id number] Folic Acid (Folic Acid 50 Mg/10 Ml Mdv) 1 mg IV DAILY [facility] Lactated Ringer's (Ringers, Lactated) 1,000 mls @ 125 mls/hr IV ASDIRECTED [facility] Last Admin: 03/23/21 04:42 Dose: 125 mls/hr Documented by: [id number] Thiamine HCl 100 mg/ Sodium (Chloride) 101 mls @ 202 mls/hr IV DAILY [facility] Magnesium Sulfate (Magnesium Sulfate In Water 2 Gm/50 Ml) 2 gm in 50 mls @ 50 mls/hr IV ONETIME ONE Stop: 03/23/21 09:28 Lorazepam (Lorazepam 2 Mg/Ml Sdv) 0 mg IVPUSH Q2H PRN; Protocol PRN Reason: Withdrawal Symptoms Lorazepam (Lorazepam 2 Mg/Ml Sdv) 2 mg IVPUSH Q3H PRN PRN Reason: Seizures Ondansetron HCl (Ondansetron 4 Mg/2 Ml Sdv) 4 mg IVPUSH Q4H PRN PRN Reason: Nausea/Vomiting Sodium Phosphate (Phosphorus #1 250 Mg Tab) 250 mg PO QID [facility] Assessment/Plan Comment:: This 30-year-old male admitted with seizure secondary to alcohol withdrawal. 1. Alcohol withdrawal/ DTs -Given Librium in the ER. -Continue Ativan as needed CIWA score -Ativan as needed seizures -Librium continued 10 mg this am, will decrease to 5 mg this evening BID. Monitor symptoms -Patient requesting discharge home wants to continue outpatient withdrawal, spoke with patient and at bedside. Agrees to stay tonight. really wanting him to continue with detox inpatient. -We will set up with [facility] [place] [facility] for outpatient resources -Counseled heavily on the dangers nature of alcohol withdrawals and needing to be under medical supervision. - Seizure precautions - Thiamine and folic acid supplementation - Monitor electrolytes daily and replete as needed. 2. Anxiety - Appears to be given Buspar as outpatient, likely not going to use as contraindicated with seizures - Hx Escitalopram, but reports he got angry on this. - Consult Dr Maldonado, psychiatry. I have reached out to him, awaiting response on availability. GI prophylaxis; protonix VTE prophylaxis: SCDs, patient declining Lovenox. Up ambulating in room. CODE STATUS: Full code Dispo: 1-2 days
[2021-03-23] MEDS ORDERED: chlordiazePOXIDE 10 MG Cap PO SCH (09:00)
[2021-03-23] MEDS: Phosphorus #1 250 MG Tab PO SCH ×4 (10:01→23:16)
[2021-03-23] MEDS: Thiamine 100 MG in Sodium Chloride 0.9% 100 ML IV SCH (10:01)
[2021-03-23] MEDS: Folic Acid 50 MG/10 ML MDV IV SCH (10:01)
[2021-03-23] MEDS ORDERED: Sodium Chloride 0.9% 2.5 ML Syringe FLUSH PRN (12:46)
[2021-03-23] MEDS: Pantoprazole 40 MG Tab.CR PO SCH (13:11)
[2021-03-24] MEDS: Enoxaparin 40 MG/0.4 ML Syringe SUBCUT SCH (01:56)
[2021-03-24] MEDS: Phosphorus #1 250 MG Tab PO SCH ×3 (05:33→18:29)
[2021-03-24 06:27] LABS: BLOOD UREA NITROGEN,BUN 5 mg/dL (7.0-18.0); CARBON DIOXIDE,CO2 27.2 mmol/L (21.0-32.0); CHLORIDE,CL 100 mmol/L (98-107); GLUCOSE RANDOM 102 mg/dL (74-106); POTASSIUM,K 3.1 mmol/L (3.5-5.1); SODIUM,NA 136 mmol/L (136-148)
[2021-03-24] MEDS: Lactated Ringers 1,000 ML IV SCH (08:14)
[2021-03-24] MEDS: Pantoprazole 40 MG Tab.CR PO SCH (08:37)
[2021-03-24] MEDS: Potassium Chloride 20 MEQ Tab.ER PO SCH ×2 (08:38→11:25)
[2021-03-24] MEDS: Folic Acid 50 MG/10 ML MDV IV SCH (08:40)
[2021-03-24] MEDS: Thiamine 100 MG in Sodium Chloride 0.9% 100 ML IV SCH (09:14)
[2021-03-24] MEDS ORDERED: busPIRone 5 MG Tab PO SCH (12:00)
[2021-03-24] MEDS ORDERED: Topiramate 50 MG Tab PO SCH (12:00)
--- NOTE | 2021-03-24 14:18 | PCM.PN ---
- General Info Date of Service: 03/24/21 Admission Dx/Problem (Free Text): Admission Diagnosis/Problem Admission Diagnosis/Problem Alcohol withdrawal syndrome Subjective Update: Reports he is feeling improved today. Continues to have mild tremors. Denies any chest pain or shortness of breath. He is very eager to go home today reports cannot take him off until 5:00 after school. He will talk to her regarding potentially staying overnight. Functional Status: Reports: Pain Controlled, Tolerating Diet, Ambulating, Urinating - Review of Systems General: Reports: No Symptoms. Denies: Weakness, Fatigue HEENT: Reports: No Symptoms. Denies: Headaches, Sore Throat, Visual Changes Pulmonary: Reports: No Symptoms. Denies: Shortness of Breath Cardiovascular: Reports: No Symptoms. Denies: Chest Pain Gastrointestinal: Reports: No Symptoms. Denies: Abdominal Pain, Nausea, Vomiting Genitourinary: Reports: No Symptoms. Denies: Dysuria Musculoskeletal: Reports: No Symptoms Skin: Reports: No Symptoms Neurological: Reports: Tremors (Mild) Psychiatric: Reports: Anxiety - Patient Data Vitals - Most Recent: Last Vital Signs Temp 99.1 F 03/24/21 11:26 Pulse 103 H 03/24/21 11:26 Resp 18 03/24/21 11:26 BP 169/110 H 03/24/21 11:26 Pulse Ox 99 03/24/21 11:26 Weight - Most Recent: 72.575 kg I&O - Last 24 Hours: Intake & Output 03/23/21 03/24/21 03/24/21 22:59 06:59 14:59 Intake Total 3280 3609 800 Output Total 1300 Balance 3280 2309 800 Lab Results Last 24 Hours: Laboratory Results - last 24 hr 03/24/21 03/24/21 Range/Units 05:25 05:25 WBC 7.39 (4.0-11.0) K/uL RBC 4.70 (4.50-5.90) M/uL Hgb 15.7 (13.0-17.0) g/dL Hct 45.4 (38.0-50.0) % MCV 96.6 (80.0-98.0) fL MCH 33.4 H (27.0-32.0) pg MCHC 34.6 (31.0-37.0) g/dL RDW Std Deviation 46.1 (28.0-62.0) fl RDW Coeff of Joseline 13 (11.0-15.0) % Plt Count 100 L (150-400) K/uL MPV 12.00 (7.40-12.00) fL Neut % (Auto) 61.8 (48.0-80.0) % Lymph % (Auto) 25.4 (16.0-40.0) % [place] % (Auto) 10.7 (0.0-15.0) % Eos % (Auto) 1.8 (0.0-7.0) % Baso % (Auto) 0.3 (0.0-1.5) % Neut # (Auto) 4.6 (1.4-5.7) K/uL Lymph # (Auto) 1.9 (0.6-2.4) K/uL [place] # (Auto) 0.8 (0.0-0.8) K/uL Eos # (Auto) 0.1 (0.0-0.7) K/uL Baso # (Auto) 0.0 (0.0-0.1) K/uL Nucleated RBC % 0.0 /100WBC Nucleated RBCs # 0 K/uL Sodium 136 (136-148) mmol/L Potassium 3.1 L (3.5-5.1) mmol/L Chloride 100 (98-107) mmol/L Carbon Dioxide 27.2 (21.0-32.0) mmol/L BUN 5 L (7.0-18.0) mg/dL Creatinine 0.9 (0.8-1.3) mg/dL Est Cr Clr Drug Dosing 125.44 mL/min Estimated GFR (MDRD) > 60.0 ml/min Glucose 102 (74-106) mg/dL Calcium 8.6 (8.5-10.1) mg/dL Phosphorus 3.4 (2.6-4.7) mg/dL Magnesium 2.0 (1.8-2.4) mg/dL Total Bilirubin 2.0 H (0.2-1.0) mg/dL AST 246 H (15-37) IU/L ALT 78 H (14-63) IU/L Alkaline Phosphatase 132 H (46-116) U/L Total Protein 7.8 (6.4-8.2) g/dL Albumin 4.0 (3.4-5.0) g/dL Globulin 3.8 (2.6-4.0) g/dL Albumin/Globulin Ratio 1.1 (0.9-1.6) Med Orders - Current: Current Medications Albuterol/Ipratropium (Albuterol/Ipratropium 3.0-0.5 Mg/3 Ml Neb Soln) 3 ml NEB Q4HRRT PRN PRN Reason: Shortness Of Breath/wheezing Buspirone HCl (Buspirone 5 Mg Tab) 15 mg PO BID [facility] Last Admin: 03/24/21 12:13 Dose: 15 mg Documented by: Chlordiazepoxide HCl (Chlordiazepoxide 5 Mg Cap) 5 mg PO BID [facility] Last Admin: 03/24/21 08:37 Dose: 5 mg Documented by: Enoxaparin Sodium (Enoxaparin 40 Mg/0.4 Ml Syringe) 40 mg SUBCUT Q24H [facility] Last Admin: 03/24/21 01:56 Dose: Not Given Documented by: Folic Acid (Folic Acid 50 Mg/10 Ml Mdv) 1 mg IV DAILY [facility] Last Admin: 03/24/21 08:40 Dose: 1 mg Documented by: Thiamine HCl 100 mg/ Sodium (Chloride) 101 mls @ 202 mls/hr IV DAILY [facility] Last Admin: 03/24/21 09:14 Dose: 202 mls/hr Documented by: Lorazepam (Lorazepam 2 Mg/Ml Sdv) 0 mg IVPUSH Q2H PRN; Protocol PRN Reason: Withdrawal Symptoms Last Admin: 03/23/21 23:16 Dose: 1 mg Documented by: Lorazepam (Lorazepam 2 Mg/Ml Sdv) 2 mg IVPUSH Q3H PRN PRN Reason: Seizures Ondansetron HCl (Ondansetron 4 Mg/2 Ml Sdv) 4 mg IVPUSH Q4H PRN PRN Reason: Nausea/Vomiting Pantoprazole Sodium (Pantoprazole 40 Mg Tab.Cr) 40 mg PO DAILY [facility] Last Admin: 03/24/21 08:37 Dose: 40 mg Documented by: Sodium Chloride (Sodium Chloride 0.9% 2.5 Ml Syringe) 2.5 ml FLUSH ASDIRECTED PRN PRN Reason: Keep Vein Open Sodium Phosphate (Phosphorus #1 250 Mg Tab) 250 mg PO QID [facility] Last Admin: 03/24/21 11:24 Dose: 250 mg Documented by: Topiramate (Topiramate 50 Mg Tab) 25 mg PO BID [facility] Last Admin: 03/24/21 12:13 Dose: 25 mg Documented by: Discontinued Medications Chlordiazepoxide HCl (Chlordiazepoxide 25 Mg Cap) 25 mg PO ONETIME ONE Stop: 03/22/21 22:09 Last Admin: 03/22/21 22:26 Dose: Not Given Documented by: Chlordiazepoxide HCl (Chlordiazepoxide 10 Mg Cap) 10 mg PO ONETIME ONE Stop: 03/23/21 01:25 Last Admin: 03/23/21 04:24 Dose: 10 mg Documented by: Chlordiazepoxide HCl (Chlordiazepoxide 10 Mg Cap) 10 mg PO BID [facility] Last Admin: 03/23/21 10:01 Dose: 10 mg Documented by: Chlordiazepoxide HCl (Chlordiazepoxide 10 Mg Cap) 10 mg PO ONETIME ONE Stop: 03/23/21 04:16 Last Admin: 03/23/21 04:26 Dose: Not Given Documented by: Multivitamins/Minerals 10 ml/Thiamine HCl 100 mg/ Folic Acid 1 mg/ Sodium Chloride 1,011.2 mls @ 999 mls/hr IV ONETIME ONE Stop: 03/22/21 23:08 Last Admin: 03/22/21 22:39 Dose: 999 mls/hr Documented by: Dextrose/Sodium Chloride (Dextrose 5%-Normal Saline) 1,000 mls @ 999 [facility] Admin: 03/22/21 22:38 Dose: 999 mls/hr Documented by: Potassium Chloride 40 meq/ (Premix) 100 mls @ 25 mls/hr IV ONETIME ONE Stop: 03/23/21 03:03 Last Admin: 03/22/21 23:48 Dose: 25 mls/hr Documented by: Lactated Ringer's (Ringers, Lactated) 1,000 mls @ 125 mls[facility] Last Admin: 03/24/21 08:14 Dose: 125 mls/hr Documented by: Magnesium Sulfate (Magnesium Sulfate In Water 2 Gm/50 Ml) 2 gm in 50 mls @ 50 mls/hr IV ONETIME ONE Stop: 03/23/21 09:28 Last Admin: 03/23/21 10:44 Dose: 50 mls/hr Documented by: Lorazepam (Lorazepam 2 Mg/Ml Sdv) 2 mg IVPUSH ONETIME ONE Stop: 03/22/21 22:10 Last Admin: 03/22/21 22:20 Dose: 2 mg Documented by: Potassium Chloride (Potassium Chloride 10% 20 Meq/15 Ml Soln 30 Ml Ud Cup) 40 meq PO ONETIME ONE Stop: 03/22/21 23:05 Last Admin: 03/22/21 23:48 Dose: 40 meq Documented by: Potassium Chloride (Potassium Chloride 20 Meq Tab.Er) 40 meq PO BID@0800,1200 [facility] Stop: 03/24/21 12:01 Last Admin: 03/24/21 11:25 Dose: 40 meq Documented by: - Exam General: Alert, Oriented, Cooperative, No Acute Distress Lungs: Clear to Auscultation, Normal Respiratory Effort Cardiovascular: Tachycardia GI/Abdominal Exam: Normal Bowel Sounds, Soft, Non-Tender Back Exam: Normal Inspection, Full Range of Motion Extremities: Normal Inspection, Normal Range of Motion, Non-Tender, No Pedal Edema Neurological: No New Focal Deficit Psy/Mental Status: Anxious, Withdrawal Symptoms - Patient Data Lab Results Last 24 hrs: Laboratory Results - last 24 hr 03/24/21 03/24/21 Range/Units 05:25 05:25 WBC 7.39 (4.0-11.0) K/uL RBC 4.70 (4.50-5.90) M/uL Hgb 15.7 (13.0-17.0) g/dL Hct 45.4 (38.0-50.0) % MCV 96.6 (80.0-98.0) fL MCH 33.4 H (27.0-32.0) pg MCHC 34.6 (31.0-37.0) g/dL RDW Std Deviation 46.1 (28.0-62.0) fl RDW Coeff of Joseline 13 (11.0-15.0) % Plt Count 100 L (150-400) K/uL MPV 12.00 (7.40-12.00) fL Neut % (Auto) 61.8 (48.0-80.0) % Lymph % (Auto) 25.4 (16.0-40.0) % Clark % (Auto) 10.7 (0.0-15.0) % Eos % (Auto) 1.8 (0.0-7.0) % Baso % (Auto) 0.3 (0.0-1.5) % Neut # (Auto) 4.6 (1.4-5.7) K/uL Lymph # (Auto) 1.9 (0.6-2.4) K/uL Clark # (Auto) 0.8 (0.0-0.8) K/uL Eos # (Auto) 0.1 (0.0-0.7) K/uL Baso # (Auto) 0.0 (0.0-0.1) K/uL Nucleated RBC % 0.0 /100WBC Nucleated RBCs # 0 K/uL Sodium 136 (136-148) mmol/L Potassium 3.1 L (3.5-5.1) mmol/L Chloride 100 (98-107) mmol/L Carbon Dioxide 27.2 (21.0-32.0) mmol/L BUN 5 L (7.0-18.0) mg/dL Creatinine 0.9 (0.8-1.3) mg/dL Est Cr Clr Drug Dosing 125.44 mL/min Estimated GFR (MDRD) > 60.0 ml/min Glucose 102 (74-106) mg/dL Calcium 8.6 (8.5-10.1) mg/dL Phosphorus 3.4 (2.6-4.7) mg/dL Magnesium 2.0 (1.8-2.4) mg/dL Total Bilirubin 2.0 H (0.2-1.0) mg/dL AST 246 H (15-37) IU/L ALT 78 H (14-63) IU/L Alkaline Phosphatase 132 H (46-116) U/L Total Protein 7.8 (6.4-8.2) g/dL Albumin 4.0 (3.4-5.0) g/dL Globulin 3.8 (2.6-4.0) g/dL Albumin/Globulin Ratio 1.1 (0.9-1.6) Result Diagrams: 03/24/21 05:25 03/24/21 05:25 Sepsis Event Note - Evaluation Sepsis Screening Result: No Definite Risk - Focused Exam Vital Signs: Vital Signs Temp Pulse Resp BP BP Pulse Ox 03/24/21 11:26 99.1 F 103 H 18 169/110 H 99 03/24/21 09:28 99.3 F 113 H 15 143/110 H 98 03/24/21 07:37 98.8 F 114 H 15 186/113 H 98 03/24/21 04:40 97.1 F 105 H 16 165/100 H 97 - Problem List & Annotations (1) Alcohol withdrawal SNOMED Code(s): 468827993 Code(s): F10.239 - ALCOHOL DEPENDENCE WITH WITHDRAWAL, UNSPECIFIED Status: Acute Current Visit: Yes (2) Seizure due to alcohol withdrawal SNOMED Code(s): 466085409 Code(s): F10.239 - ALCOHOL DEPENDENCE WITH WITHDRAWAL, UNSPECIFIED; R56.9 - UNSPECIFIED CONVULSIONS Status: Acute Current Visit: Yes (3) Anxiety SNOMED Code(s): 15996873 Code(s): F41.9 - ANXIETY DISORDER, UNSPECIFIED Status: Chronic Current Visit: Yes (4) Alcohol abuse SNOMED Code(s): 60282071 Code(s): F10.10 - ALCOHOL ABUSE, UNCOMPLICATED Status: Chronic Current Visit: Yes - Problem List Review Problem List Initiated/Reviewed/Updated: Yes - My Orders Last 24 Hours: My Active Orders 03/23/21 21:00 chlordiazePOXIDE [Librium] 5 mg PO BID 03/24/21 12:00 Topiramate [Topamax] 25 mg PO BID busPIRone [Buspar] 15 mg PO BID 03/24/21 12:23 Acetylene Torch Solderer Discontinue [Cardiac Monitoring Discontinue] [RC] Click to Edit 03/25/21 05:11 CBC WITH AUTO DIFF [HEME] AM COMPREHENSIVE METABOLIC PN,CMP [CHEM] AM MAGNESIUM [CHEM] AM PHOSPHORUS [CHEM] AM - Plan Plan:: This 30-year-old male admitted with seizure secondary to alcohol withdrawal. 1. Alcohol withdrawal/ DTs -Librium decreased to 5 mg twice daily -Continue Ativan as needed CIWA score -Ativan as needed seizures -We will set up with AA meetings celebrate recovery and [facility] emphasis for outpatient resources -Counseled heavily on the dangers nature of alcohol withdrawals and needing to be under medical supervision. - Seizure precautions - Thiamine and folic acid supplementation - Monitor electrolytes daily and replete as needed. 2. Anxiety -Spoke with Dr. Maldonado this morning. -We will start BuSpar 15 mg twice daily along with Topamax 25 mg twice daily patient eager and happy with conversation he had with Dr. Maldonado today.. GI prophylaxis; protonix VTE prophylaxis: SCDs, patient declining Lovenox. Up ambulating in room. CODE STATUS: Full code Dispo: Would like patient to stay overnight tonight. Awaiting talking to . We discussed this with patient he may be able to be discharged later this evening if is comfortable with him coming home otherwise we would recommend him staying 1 more night.
[2021-03-24 16:30] VITALS: BP 140/86; PULSE 96
--- NOTE | 2021-03-24 18:05 | PCM.DCSUM1 ---
Discharge Summary - Hospital Course Diagnosis: Stroke: No - Discharge Data Discharge Date: 03/24/21 Discharge Disposition: Home, Self-Care 01 Condition: Stable - Referral to Home Health Primary Care Physician: Berlin Guallpa MD - Discharge Diagnosis/Problem(s) (1) Alcohol withdrawal SNOMED Code(s): 712937277 ICD Code: F10.239 - ALCOHOL DEPENDENCE WITH WITHDRAWAL, UNSPECIFIED Status: Acute Current Visit: Yes (2) Seizure due to alcohol withdrawal SNOMED Code(s): 808877203 ICD Code: F10.239 - ALCOHOL DEPENDENCE WITH WITHDRAWAL, UNSPECIFIED; R56.9 - UNSPECIFIED CONVULSIONS Status: Acute Current Visit: Yes - Patient Instructions Diet: Usual Diet as Tolerated Activity: As Tolerated Driving: Do Not Drive (for 2 days) Showering/Bathing: May Shower Notify Provider of: Fever, Increased Pain, Swelling and Redness, Drainage, Nausea and/or Vomiting - Discharge Plan *PRESCRIPTION DRUG MONITORING PROGRAM REVIEWED*: No *COPY OF PRESCRIPTION DRUG MONITORING REPORT IN PATIENT SUMAN: No Prescriptions/Med Rec: busPIRone [Buspar] 15 mg PO BID #60 tablet Topiramate [Topamax] 25 mg PO BID #60 tablet Home Medications: Home Meds Topiramate [Topamax] 25 mg PO BID #60 tablet 03/24/21 [Rx] busPIRone [Buspar] 15 mg PO BID #60 tablet 03/24/21 [Rx] Oxygen Therapy Mode: Room Air Patient Handouts: Alcohol Use Disorder, Alcohol Withdrawal Syndrome, [id number] Referrals: Berlin Guallpa MD [Primary Care Provider] - 03/30/21 9:45 am - Patient Data Vitals - Most Recent: Last Vital Signs Temp 37.2 C 03/24/21 15:30 Pulse 96 03/24/21 15:30 Resp 16 03/24/21 15:30 BP 140/86 03/24/21 15:30 Pulse Ox 99 03/24/21 15:30 Weight - Most Recent: 72.575 kg I&O - Last 24 hours: Intake & Output 03/24/21 03/24/21 03/24/21 06:59 14:59 22:59 Intake Total 3609 800 1500 Output Total 1300 Balance 2309 800 1500 Lab Results - Last 24 hrs: Laboratory Results - last 24 hr 03/24/21 03/24/21 Range/Units 05:25 05:25 WBC 7.39 (4.0-11.0) K/uL RBC 4.70 (4.50-5.90) M/uL Hgb 15.7 (13.0-17.0) g/dL Hct 45.4 (38.0-50.0) % MCV 96.6 (80.0-98.0) fL MCH 33.4 H (27.0-32.0) pg MCHC 34.6 (31.0-37.0) g/dL RDW Std Deviation 46.1 (28.0-62.0) fl RDW Coeff of Joseline 13 (11.0-15.0) % Plt Count 100 L (150-400) K/uL MPV 12.00 (7.40-12.00) fL Neut % (Auto) 61.8 (48.0-80.0) % Lymph % (Auto) 25.4 (16.0-40.0) % [place] % (Auto) 10.7 (0.0-15.0) % Eos % (Auto) 1.8 (0.0-7.0) % Baso % (Auto) 0.3 (0.0-1.5) % Neut # (Auto) 4.6 (1.4-5.7) K/uL Lymph # (Auto) 1.9 (0.6-2.4) K/uL [place] # (Auto) 0.8 (0.0-0.8) K/uL Eos # (Auto) 0.1 (0.0-0.7) K/uL Baso # (Auto) 0.0 (0.0-0.1) K/uL Nucleated RBC % 0.0 /100WBC Nucleated RBCs # 0 K/uL Sodium 136 (136-148) mmol/L Potassium 3.1 L (3.5-5.1) mmol/L Chloride 100 (98-107) mmol/L Carbon Dioxide 27.2 (21.0-32.0) mmol/L BUN 5 L (7.0-18.0) mg/dL Creatinine 0.9 (0.8-1.3) mg/dL Est Cr Clr Drug Dosing 125.44 mL/min Estimated GFR (MDRD) > 60.0 ml/min Glucose 102 (74-106) mg/dL Calcium 8.6 (8.5-10.1) mg/dL Phosphorus 3.4 (2.6-4.7) mg/dL Magnesium 2.0 (1.8-2.4) mg/dL Total Bilirubin 2.0 H (0.2-1.0) mg/dL AST 246 H (15-37) IU/L ALT 78 H (14-63) IU/L Alkaline Phosphatase 132 H (46-116) U/L Total Protein 7.8 (6.4-8.2) g/dL Albumin 4.0 (3.4-5.0) g/dL Globulin 3.8 (2.6-4.0) g/dL Albumin/Globulin Ratio 1.1 (0.9-1.6) Med Orders - Current: Current Medications Albuterol/Ipratropium (Albuterol/Ipratropium 3.0-0.5 Mg/3 Ml Neb Soln) 3 ml NEB Q4HRRT PRN PRN Reason: Shortness Of Breath/wheezing Buspirone HCl (Buspirone 5 Mg Tab) 15 mg PO BID [facility] Last Admin: 03/24/21 12:13 Dose: 15 mg Documented by: Chlordiazepoxide HCl (Chlordiazepoxide 5 Mg Cap) 5 mg PO BID [facility] Last Admin: 03/24/21 08:37 Dose: 5 mg Documented by: Enoxaparin Sodium (Enoxaparin 40 Mg/0.4 Ml Syringe) 40 mg SUBCUT Q24H [facility] Last Admin: 03/24/21 01:56 Dose: Not Given Documented by: Folic Acid (Folic Acid 50 Mg/10 Ml Mdv) 1 mg IV DAILY [facility] Last Admin: 03/24/21 08:40 Dose: 1 mg Documented by: Thiamine HCl 100 mg/ Sodium (Chloride) 101 mls @ 202 mls/hr IV DAILY [facility] Last Admin: 03/24/21 09:14 Dose: 202 mls/hr Documented by: Lorazepam (Lorazepam 2 Mg/Ml Sdv) 0 mg IVPUSH Q2H PRN; Protocol PRN Reason: Withdrawal Symptoms Last Admin: 03/23/21 23:16 Dose: 1 mg Documented by: Lorazepam (Lorazepam 2 Mg/Ml Sdv) 2 mg IVPUSH Q3H PRN PRN Reason: Seizures Ondansetron HCl (Ondansetron 4 Mg/2 Ml Sdv) 4 mg IVPUSH Q4H PRN PRN Reason: Nausea/Vomiting Pantoprazole Sodium (Pantoprazole 40 Mg Tab.Cr) 40 mg PO DAILY [facility] Last Admin: 03/24/21 08:37 Dose: 40 mg Documented by: Sodium Chloride (Sodium Chloride 0.9% 2.5 Ml Syringe) 2.5 ml FLUSH ASDIRECTED PRN PRN Reason: Keep Vein Open Sodium Phosphate (Phosphorus #1 250 Mg Tab) 250 mg PO QID [facility] Last Admin: 03/24/21 11:24 Dose: 250 mg Documented by: Topiramate (Topiramate 50 Mg Tab) 25 mg PO BID [facility] Last Admin: 03/24/21 12:13 Dose: 25 mg Documented by: Discontinued Medications Chlordiazepoxide HCl (Chlordiazepoxide 25 Mg Cap) 25 mg PO ONETIME ONE Stop: 03/22/21 22:09 Last Admin: 03/22/21 22:26 Dose: Not Given Documented by: Chlordiazepoxide HCl (Chlordiazepoxide 10 Mg Cap) 10 mg PO ONETIME ONE Stop: 03/23/21 01:25 Last Admin: 03/23/21 04:24 Dose: 10 mg Documented by: Chlordiazepoxide HCl (Chlordiazepoxide 10 Mg Cap) 10 mg PO BID [facility] Last Admin: 03/23/21 10:01 Dose: 10 mg Documented by: Chlordiazepoxide HCl (Chlordiazepoxide 10 Mg Cap) 10 mg PO ONETIME ONE Stop: 03/23/21 04:16 Last Admin: 03/23/21 04:26 Dose: Not Given Documented by: Multivitamins/Minerals 10 ml/Thiamine HCl 100 mg/ Folic Acid 1 mg/ Sodium Chloride 1,011.2 mls @ 999 mls/hr IV ONETIME ONE Stop: 03/22/21 23:08 Last Admin: 03/22/21 22:39 Dose: 999 mls/hr Documented by: Dextrose/Sodium Chloride (Dextrose 5%-Normal Saline) 1,000 mls @ 999 mls/hr IV ASDIRECTED [facility] Last Admin: 03/22/21 22:38 Dose: 999 mls/hr Documented by: Potassium Chloride 40 meq/ (Premix) 100 mls @ 25 mls/hr IV ONETIME ONE Stop: 03/23/21 03:03 Last Admin: 03/22/21 23:48 Dose: 25 mls/hr Documented by: Lactated Ringer's (Ringers, Lactated) 1,000 mls @ 125 mls/hr IV ASDIRECTED [facility] Last Admin: 03/24/21 08:14 Dose: 125 mls/hr Documented by: Magnesium Sulfate (Magnesium Sulfate In Water 2 Gm/50 Ml) 2 gm in 50 mls @ 50 mls/hr IV ONETIME ONE Stop: 03/23/21 09:28 Last Admin: 03/23/21 10:44 Dose: 50 mls/hr Documented by: Lorazepam (Lorazepam 2 Mg/Ml Sdv) 2 mg IVPUSH ONETIME ONE Stop: 03/22/21 22:10 Last Admin: 03/22/21 22:20 Dose: 2 mg Documented by: Potassium Chloride (Potassium Chloride 10% 20 Meq/15 Ml Soln 30 Ml Ud Cup) 40 meq PO ONETIME ONE Stop: 03/22/21 23:05 Last Admin: 03/22/21 23:48 Dose: 40 meq Documented by: Potassium Chloride (Potassium Chloride 20 Meq Tab.Er) 40 meq PO BID@0800,1200 [facility] Stop: 03/24/21 12:01 Last Admin: 03/24/21 11:25 Dose: 40 meq Documented by:
--- NOTE | 2021-03-24 19:31 | CONS ---
DATE OF CONSULTATION: 03/24/2021 DATE OF : 1990 PRIMARY CARE PHYSICIAN: ALF LAUREANO MD Site where the services are provided is [facility] in [place], [place]. Site where the services are provided is from our offices in [facility]. Length of service for this 60 minute inpatient telemedicine event is 60 minutes. IDENTIFICATION: Patient is a 30-year-old male who was admitted to the inpatient MICU at [facility] in [place], [place]. He is seen for psychiatric consultation per the request of staff attending Dr. Schmidt and her treatment team. CHIEF COMPLAINT: "I have always had anxiety . I quit cold turkey 4 times now." HISTORY OF PRESENT ILLNESS: Patient is a 30-year-old male who has a history of heavy alcohol use and was trying to stop on his own and experienced a withdrawal seizure, so his called EMS and he was brought to the hospital where he was admitted. Patient states he has been "sober for about 5 or 6 days" now. He states he is drinking up to a "12-pack a day or a 5th" of hard liquor sometimes. He states that most recent trigger is he "just got laid off" after "I fell asleep at work." The patient states he really wants to get sober. He states the main issue right now is that he has a lot of anxiety. He states "mostly I just have anxiety," although he does note that when he is drinking he tends to get depressed too. He states, however, if he gets sober, the anxiety is the issue and depression is not that big a deal for him, and he denies any mood swings. He also denies any compulsive behaviors, but he does report a lot of racing thoughts and ruminations where he is worrying about stuff a lot. He denies any illicit substance use complicating his clinical picture. Denies any excessive caffeine use complicating his clinical picture. He does stay well hydrated. He denies any suicidal or homicidal. He denies any psychotic, delusional, or paranoid symptoms. He states that if he can get something that help him reduce his anxiety first and foremost, that would be great, and then possibly help him down the road with focus and concentration, that would be helpful too. MEDICATIONS AT TIME OF ADMISSION: None. The patient states he had been prescribed BuSpar by his regular outpatient doctor in [place], but has not started that medication yet. Since being on the unit, he has been getting Librium and Ativan per [facility] protocol. ALLERGIES: Hydrocodone which causes hives. PAST MEDICAL HISTORY: Significant for signs and symptoms of alcohol withdrawal. He states he also had issues with his stomach where he cannot eat, again alcohol related. REVIEW OF SYSTEMS: Aside from neuro and GI, all other major organ systems are negative at this point in time for acute difficulties or complications. FAMILY PSYCHIATRIC AND CD HISTORY: Patient reports a history of alcoholism in his father. He states his paternal grandmother may have had some mental health issues. PAST PSYCHIATRIC AND CD HISTORY: Patient denies any previous psychiatric hospitalizations or chemical dependency treatments. He states his longest sobriety has been for 6 months. He has never gone to , but he has gone to a cheondoism group that has helped with sobriety. Denies any previous suicide attempts, self-injurious behaviors, or eating disorder history. He does report some emotional abuse growing up when his parents got and then with his dad's alcoholism. PAST PSYCHIATRIC MEDICATION HISTORY: Includes naltrexone which was ineffective, Lexapro which made him angry, and Valium which he took when his mother gave it to him when he was younger and that helped him. SOCIAL HISTORY: Patient born in [place], raised in the [place] [facility] [place] [facility] [place]. The patient's parents when patient was 13 years of age. He stayed with his mom after divorce. His father sold apples. His mother was a daycare worker. The patient's highest level of education is 2 years of college at [employer] in [place]. 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 He has been x1 for 4 years and then with his for a total of 6 years. The couple have a young boy of 4- month-old. 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 The patient lives in [place], [place], at [address] with his and child. He denies any prior service or any current legal difficulties. He was raised [facility]. His is Rastafari and may attend a [employer] because that is the only cheondoism in the area. He is Hoahaoism in terms of his dylan formation. Enjoys playing video games, dirt biking, hiking in the [place], mountain biking, cooking, and spending time with his kid. MENTAL STATUS EXAM: The patient is a 30-year-old white male in no apparent distress. Speech is of regular rate and rhythm. The patient is cognitively oriented x3. Psychomotor activity is within normal limits. There is no abnormal motor movements or tics observed. Gait and station are not observed. This patient is seated for the entire portion of the interview. Mood is anxious. Affect is fatigued appearing but cooperative overall for the purposes of the inpatient consult. There is no behavioral or stated evidence of acute suicidal or homicidal ideation or acute psychotic, delusional, or paranoid symptoms. Thought processes are significant for racing thoughts and ruminations. However, there are no acute manic symptoms or loose associations evident. Judgment and insight appear unimpaired at this point in time. Motivation for help is good. Vital signs are not available at time of interview. IMPRESSION: [place] I. 1. Alcohol dependence, F10.20. 2. Generalized anxiety disorder, F41.1. 3. Depression, not otherwise specified, F32.9. [place] II: None. [place] III: 1. Signs and symptoms of alcohol withdrawal. 2. Signs and symptoms of alcohol gastritis. [place] IV: Severe. [place] V: 55. PLAN: 1. Sobriety. 2. Begin trial of Topamax 25 mg b.i.d. for mood stability, anxiety reduction, and seizure prophylaxis. 3. Begin trial of BuSpar 15 mg b.i.d. for anxiety reduction. 4. May continue withdrawal protocols of Librium and Ativan while patient is on unit. 5. Patient is apprised of benefits and side effects of his newly initiated psychiatric medication regimen. He acknowledges understanding these facts and has no further questions by the end of the interview session. 6. Recommend the patient attend AA on an outpatient basis when he is medically stabilized and discharged back to the community. 7. Recommend the patient follow up with Outpatient Psychiatry to assess his overall function and efficacy of his newly initiated psychiatric medication regimen within 3 to 4 weeks upon discharge. 8. If the patient is unable to maintain sobriety on his own, then would recommend some type of structured inpatient or even outpatient CD treatment programming to help him with sobriety maintenance. 9. We will continue to follow up with the patient on an as-needed basis while he remains on inpatient medical and MICU Unit at. 10.[place], [place]. 11.We will follow up with the patient soon if there are any complications in the interim. 12.Crisis plan is in place. LOPEDAV / MODL /[id number]
== END 2021-03-24 18:40 | disposition home or self-care (01) ==
LOC: MW.ED 22:05 → MW.MS 03-23 01:25
PROVIDERS: ADMIT Student in an Organized Health Care Education/Training Program; ATTEND Student in an Organized Health Care Education/Training Program
DX: F10.239 Alcohol dependence with withdrawal, unspecified (principal); R56.9 Unspecified convulsions; D69.6 Thrombocytopenia, unspecified; F41.9 Anxiety disorder, unspecified; F32.9 Major depressive disorder, single episode, unspecified; E87.1 Hypo-osmolality and hyponatremia; E87.6 Hypokalemia; E87.8 Other disorders of electrolyte and fluid balance, not elsewhere classified; R73.9 Hyperglycemia, unspecified; K70.10 Alcoholic hepatitis without ascites; Z20.822 Contact with and (suspected) exposure to COVID-19; Z88.8 Allergy status to other drugs, medicaments and biological substances; Z86.16 Personal history of COVID-19; Y90.0 Blood alcohol level of less than 20 mg/100 ml
CPT/HCPCS: 36415; 80053; 80307; 83735; 84100; 85025; 87635; 93005; 96365; 96366; 96367; 96375; 99285; A9270; J2060; J3411; J3475; J3480; J7030; J7042; J7120; 96376; 99284; G0378; U0002

== ENCOUNTER 2021-04-19 16:04 | Emergency (ER) | payer SELFPAY ==
[2021-04-19 16:30] VITALS: BP 161/87; PULSE 97
--- NOTE | 2021-04-19 16:37 | EDM.PDOC ---
ED HPI GENERAL MEDICAL PROBLEM - General Stated Complaint: MED CLEARANCE Time Seen by Provider: 04/19/21 16:11 - History of Present Illness INITIAL COMMENTS - FREE TEXT/NARRATIVE: History of present illness: [] The patient had a prior infraction but because of the technicality it was not considered an under the influence infraction. Now he got drunk when his has a graduation in [place] and she is one of the faculty. He decided after he drank to drive to the graduation and got arrested in route. He has been pulled over and being taken in. He does know when he would go get out. When he was in assisted before he had a seizure because he was not drinking. He does not have any new symptoms now. Review of systems: As per history of present illness and below otherwise all systems reviewed and negative. Past medical history: As per history of present illness and as reviewed below otherwise noncontributory. Surgical history: As per history of present illness and as reviewed below otherwise noncontributory. Social history: No reported history of drug or alcohol abuse. Family history: As per history of present illness and as reviewed below otherwise noncontributory. Physical exam: Constitutional - well developed, well-nourished and in no acute distress HEENT - normocephalic, no evidence of trauma - external nose and mouth normal - no mass in neck and no JVD - mucosae moist EYES - full EOM, PERRL, no icterus - no evidence of inflammation, injection, or drainage Respiratory - no respiratory distress, equal bilateral expansion, lungs clear to auscultation and no abnormal lung sounds Cardiovascular - Regular Rhythm with S1 and S2 appreciated and no murmur, gallop or rub. GI - abdomen soft without distension or organomegaly - normal bowel sounds - no guard or rebound Musculoskeletal no gross deformity of long bones or joints - no tenderness, swelling or edema Neurologic - Alert and oriented times four - CN II-XII grossly intact - motor sensory and coordination symmetrically normal Psychiatric - appropriate mood and affect with normal thought content Hematologic - No petechiae or purpura - mucosa appropriate color and sclera not pale - normal nail bed color and refill Integument - no rash or evidence of trauma - normal turgor Diagnostics: [] Therapeutics: [] Impression: [] Plan: [] Definitive disposition and diagnosis as appropriate pending reevaluation and review of above. - Related Data Allergies Allergy/AdvReac Type Severity Reaction Status Date / Time hydrocodone Allergy Intermediate Vomiting Verified 04/19/21 16:26 Home Meds: Home Meds Topiramate [Topamax] 25 mg PO BID #60 tablet 03/24/21 [Rx] busPIRone [Buspar] 15 mg PO BID #60 tablet 03/24/21 [Rx] Past Medical History - Past Health History Medical/Surgical History: Denies Medical/Surgical History Cardiovascular History: Reports: None. Denies: CAD, Hypertension, ID Respiratory History: Reports: None. Denies: Asthma, COPD, Sleep Apnea Gastrointestinal History: Reports: None Genitourinary History: Reports: None Musculoskeletal History: Reports: None Psychiatric History: Reports: Addiction, Anxiety, Depression Endocrine/Metabolic History: Reports: None. Denies: Diabetes, Type II, Obesity/BMI 30+ - Infectious Disease History Infectious Disease History: Reports: Chicken Pox, Mononucleosis, Novel Coronavirus - Past Surgical History GI Surgical History: Reports: None Social & Family History - Caffeine Use Caffeine Use: Reports: Energy Drinks, Soda - Living Situation & Occupation Living situation: Reports: Occupation: Unemployed ED ROS GENERAL - Review of Systems Review Of Systems: Comprehensive ROS is negative, except as noted in HPI. ED EXAM, GENERAL - Physical Exam Exam: See Below Free Text/Narrative:: My physical exam is in the HPI Course - Vital Signs Last Recorded V/S: Last Vital Signs Temp 36.4 C 04/19/21 16:26 Pulse 97 04/19/21 16:26 Resp 18 04/19/21 16:26 BP 161/87 H 04/19/21 16:26 Pulse Ox 98 04/19/21 16:26 Departure - Departure Time of Disposition: 16:36 Disposition: Home, Self-Care 01 Condition: Good Clinical Impression: Alcohol abuse - Discharge Information Referrals: Berlin Guallpa MD [Primary Care Provider] - Additional Instructions: You should consider a medically supervised detox. If you are not having significant physical symptoms of withdrawal you should consider AA. [facility] Address: [address] [place] [id number] Hours: walk in 9 AM M-F The following information is given to patients seen in the emergency department who are being discharged to home. This information is to outline your options for follow-up care. We provide all patients seen in our emergency department with a follow-up referral. The need for follow-up, as well as the timing and circumstances, are variable depending upon the specifics of your emergency department visit. If you don't have a primary care physician on staff, we will provide you with a referral. We always advise you to contact your personal physician following an emergency department visit to inform them of the circumstance of the visit and for follow-up with them and/or the need for any referrals to a consulting specialist. The emergency department will also refer you to a specialist when appropriate. This referral assures that you have the opportunity for follow-up care with a specialist. All of these measure are taken in an effort to provide you with optimal care, which includes your follow-up. Under all circumstances we always encourage you to contact your private physician who remains a resource for coordinating your care. When calling for follow-up care, please make the office aware that this follow-up is from your recent emergency room visit. If for any reason you are refused follow-up, please contact the [facility] Emergency Department at and asked to speak to the emergency department charge nurse. Sepsis Event Note (ED) - Evaluation Sepsis Screening Result: No Definite Risk - Focused Exam Vital Signs: Vital Signs Temp Pulse Resp BP Pulse Ox 04/19/21 16:26 36.4 C 97 18 161/87 H 98
== END 2021-04-19 16:41 | disposition home or self-care (01) ==
LOC: MW.ED 16:04
DX: F10.10 Alcohol abuse, uncomplicated (principal); Z88.5 Allergy status to narcotic agent
CPT/HCPCS: 99282; 99283

== ENCOUNTER 2021-04-23 21:12 | Emergency (ER) | payer SELFPAY ==
[2021-04-23] MEDS ORDERED: chlordiazePOXIDE 25 MG Cap PO ONE (21:37)
--- NOTE | 2021-04-23 21:43 | EDM.PDOC ---
ED HPI GENERAL MEDICAL PROBLEM - General Chief Complaint: General Stated Complaint: MED CLEAR Time Seen by Provider: 04/23/21 21:29 Source of Information: Reports: Patient History Limitations: Reports: No Limitations - History of Present Illness INITIAL COMMENTS - FREE TEXT/NARRATIVE: Patient is a 30-year-old male presents today for alcohol intoxication. Patient brought in by police for medical clearance. Patient and states that he was drinking today and rarely drinks. Police state his level was greater than 400. Patient states that he has no complaints right now. Patient showed no signs of withdrawals no tremors with mental status. Patient is slightly tacky to 100 but states that he is angry upset the calling him by the police. - Related Data Allergies Allergy/AdvReac Type Severity Reaction Status Date / Time hydrocodone Allergy Intermediate Vomiting Verified 04/23/21 21:24 Home Meds: Home Meds Topiramate [Topamax] 25 mg PO BID #60 tablet 03/24/21 [Rx] busPIRone [Buspar] 15 mg PO BID #60 tablet 03/24/21 [Rx] Past Medical History - Past Health History Medical/Surgical History: Denies Medical/Surgical History HEENT History: Reports: None Cardiovascular History: Reports: None Respiratory History: Reports: None Gastrointestinal History: Reports: None Genitourinary History: Reports: None Musculoskeletal History: Reports: None Neurological History: Reports: None Psychiatric History: Reports: Addiction, Anxiety, Depression Endocrine/Metabolic History: Reports: None Hematologic History: Reports: None Immunologic History: Reports: None Oncologic (Cancer) History: Reports: None Dermatologic History: Reports: None - Infectious Disease History Infectious Disease History: Reports: Chicken Pox, Mononucleosis, Novel Coronavirus - Past Surgical History Head Surgeries/Procedures: Reports: None HEENT Surgical History: Reports: None GI Surgical History: Reports: None Social & Family History - Family History Family Medical History: No Pertinent Family History - Caffeine Use Caffeine Use: Reports: None - Recreational Drug Use Recreational Drug Use: No - Living Situation & Occupation Living situation: Reports: Occupation: Unemployed ED ROS GENERAL - Review of Systems Review Of Systems: See Below Constitutional: Reports: No Symptoms HEENT: Reports: No Symptoms Respiratory: Reports: No Symptoms Cardiovascular: Reports: No Symptoms Endocrine: Reports: No Symptoms GI/Abdominal: Reports: No Symptoms : Reports: No Symptoms Musculoskeletal: Reports: No Symptoms Skin: Reports: No Symptoms Neurological: Reports: No Symptoms Psychiatric: Reports: No Symptoms Hematologic/Lymphatic: Reports: No Symptoms Immunologic: Reports: No Symptoms ED EXAM, GENERAL - Physical Exam Exam: See Below Exam Limited By: No Limitations General Appearance: Alert, WD/WN, No Apparent Distress Eye Exam: Bilateral Eye: EOMI, PERRL Head: Sinus Tenderness Neck: Normal Inspection, Supple, Non-Tender Respiratory/Chest: No Respiratory Distress, Lungs Clear Cardiovascular: Normal Peripheral Pulses, Regular Rate, Rhythm GI/Abdominal: Normal Bowel Sounds, Soft, Non-Tender Neurological: Alert, Oriented, Normal Cognition, Normal Gait, No Motor/Sensory Deficits Course - Vital Signs Last Recorded V/S: Last Vital Signs Temp 97.2 F 04/23/21 21:24 Pulse 126 H 04/23/21 21:24 Resp 18 04/23/21 21:24 BP 130/107 H 04/23/21 21:24 Pulse Ox 96 04/23/21 21:24 - Orders/Labs/Meds Meds: Medications Discontinued Medications Generic Name Dose Route Start Last Admin Trade Name Ayde PRN Reason Stop Dose Admin Chlordiazepoxide HCl 50 mg 04/23/21 21:37 Chlordiazepoxide 25 Mg Cap PO 04/23/21 21:38 ONETIME ONE Departure - Departure Time of Disposition: 21:41 Disposition: Home, Self-Care 01 Condition: Good Clinical Impression: Medical clearance for incarceration - Discharge Information *PRESCRIPTION DRUG MONITORING PROGRAM REVIEWED*: Not Applicable *COPY OF PRESCRIPTION DRUG MONITORING REPORT IN PATIENT SUMAN: Not Applicable Instructions: Medical Screening Exam Referrals: PCP,None [Primary Care Provider] - Additional Instructions: The following information is given to patients seen in the emergency department who are being discharged to home. This information is to outline your options fo r follow-up care. We provide all patients seen in our emergency department with a follow-up referral. The need for follow-up, as well as the timing and circumstances, are variable depending upon the specifics of your emergency department visit. If you don't have a primary care physician on staff, we will provide you with a referral. We always advise you to contact your personal physician following an emergency department visit to inform them of the circumstance of the visit and for follow-up with them and/or the need for any referrals to a consulting specialist. The emergency department will also refer you to a specialist when appropriate. This referral assures that you have the opportunity for follow-up care with a specialist. All of these measure are taken in an effort to provide you with optimal care, which includes your follow-up. Under all circumstances we always encourage you to contact your private physician who remains a resource for coordinating your care. When calling for follow-up care, please make the office aware that this follow-up is from your recent emergency room visit. If for any reason you are refused follow-up, please contact the [facility] Emergency Department at and asked to speak to the emergency department charge nurse. Please follow up with your primary care physician. If you do not have a primary care physician, see below: [facility] [address] [place] [id number] [facility] [address] [place] [address] You were seen today for medical clearance after being found to be intoxicated. You currently have no signs of withdrawal however if you start developing any altered mental status or shakiness please return to the ED immediately. We gave you libido Librium that can help you pass the symptoms of withdrawal. Sepsis Event Note (ED) - Evaluation Sepsis Screening Result: No Definite Risk - Focused Exam Vital Signs: Vital Signs Temp Pulse Resp BP Pulse Ox 04/23/21 21:24 97.2 F 126 H 18 130/107 H 96 - Assessment/Plan Plan: Patient is a 30-year-old male presents today for medical clearance at [facility] and found to have alcohol of greater than 400. Patient currently has no signs of alcohol withdrawal. Patient will be sent back with police and likely discharge home. We will give patient referral to follow-up for detox if he would like it. Patient is tacky to 100 but likely related to him being arrested and anxious.
[2021-04-23 22:14] VITALS: BP 140/100; PULSE 112
== END 2021-04-23 21:50 | disposition home or self-care (01) ==
LOC: MW.ED 21:12
DX: Z86.16 Personal history of COVID-19; Z88.5 Allergy status to narcotic agent
CPT/HCPCS: 99284; A9270

== ENCOUNTER 2021-08-04 13:29 | Emergency (ER) | payer SELFPAY ==
[2021-08-04] MEDS ORDERED: Sodium Chloride 0.9% 1,000 ML IV ONE (15:40)
[2021-08-04] MEDS ORDERED: LORazepam 2 MG/ML SDV IVPUSH ONE (15:45)
--- NOTE | 2021-08-04 15:50 | EDM.PDOC ---
ED HPI GENERAL MEDICAL PROBLEM - General Chief Complaint: Drug or Alcohol Abuse Stated Complaint: ALCOHOLISM NO FEELING IN RIHGT ARM Time Seen by Provider: 08/04/21 15:40 Source of Information: Reports: Patient History Limitations: Reports: No Limitations - History of Present Illness INITIAL COMMENTS - FREE TEXT/NARRATIVE: HISTORY AND PHYSICAL: History of present illness: Patient is a 31-year-old male who presents to the emergency room with complaints of generally feeling unwell, increased anxiety and intermittent tingling sensation to upper extremities. Patient states he has a longstanding history of alcohol abuse, recently went on a [place] as his grandfather . He states his last drink was 6-7am, as he had to get up to "take care of the baby". He reports he had increased anxiety, intermittent tingling sensation in one or both of the arms (duration, location and intensity has been various - states it depends on his level of anxiety). He decided he wanted to come to the emergency room as he is fearful of abstaining from alcohol and he has anxiety. States he has a history of alcohol withdrawal seizures. Patient denies any fever, chills, headache, change in vision, syncope or near syncope. Denies any chest pain, back pain, shortness of breath or cough. Denies any abdominal pain, nausea, vomiting, diarrhea, constipation or dysuria. Has not noted any blood in urine or stool. Patient has been eating and drinking appropriately. Review of systems: As per history of present illness and below otherwise all systems reviewed and negative. Past medical history: As per history of present illness and as reviewed below otherwise noncontributory. Surgical history: As per history of present illness and as reviewed below otherwise noncontributory. Social history: See social history for further information Family history: As per history of present illness and as reviewed below otherwise noncontributory. Physical exam: General: Well developed and well nourished. Alert and orientated x 3. Nontoxic in appearance and in no acute distress. Vital signs are stable and have been reviewed by me. Nursing notes were reviewed. HEENT: Atraumatic, normocephalic, pupils equal and reactive bilaterally, negative for conjunctival pallor or scleral icterus, mucous membranes moist, TMs normal bilaterally, throat clear, neck supple, nontender, trachea midline. No drooling or trismus noted. No meningeal signs. No hot potato voice noted. Lungs: Clear to auscultation bilaterally. No wheezes, rales, or rhonchi. Chest nontender. Normal work of breathing, no accessory muscles used. Heart: S1S2, regular rate and rhythm without overt murmur, gallops, or rubs. No JVD. No peripheral edema Abdomen: Soft, nondistended, nontender. Normoactive bowel sounds. Negative for masses or costovertebral tenderness. Skin: Intact, warm, dry. No lesions or rashes noted. Hematologic: No petechiae or purpra. Mucosa appropriate color and normal nail bed color and refill. Extremities: Atraumatic, moves all extremities per self without difficulty or deficits, negative for cords or calf pain. Neurovascular unremarkable. Neuro: Awake, alert, oriented. Cranial nerves II through XII unremarkable. Cerebellum unremarkable. Motor and sensory unremarkable throughout. Exam nonfocal. Psychiatric: Mood and affect are appropriate. Normal thought process. Answering questions appropriately. Please note that the patient was seen and evaluated during the 2019 SARS-CoV-2 novel coronavirus pandemic period. Community viral transmission is ongoing at time of this encounter and the emergency department is operating under pandemic response procedures. Medical Decision Making: Patient is a 31-year-old male who presents to the emergency room with complaints of anxiety related to his alcohol use. Patient's physical exam is unremarkable. Vital signs are stable. Patient is anxious appearing we will give him some Ativan and fluids while lab work is pending. Patient's lab work is essentially unremarkable. I have talked with the patient about today's findings, in addition to providing specific details for plan of care. Patient states he does not desire alcohol treatment but is having increased anxiety. He states he does not think he can return home as he is not supposed to be drinking. Did give him outpatient resource information. Signs remained stable. Patient is alert, oriented and answering questions appropriately. No tremors or signs of withdrawal are noted. Reassessment at the time of disposition demonstrates that the patient is in no acute distress. The patient is stable for discharge, counseling was provided and we discussed in great detail signs and symptoms that would prompt them to return to the Emergency Department. Medication, follow up and supportive care measures were reviewed and discussed. Voices understanding and is agreeable to plan of care. Denies any further questions or concerns at this time. Diagnostics: CBC, CMP, lipase, magnesium Therapeutics: IV fluid, Ativan Prescription: None Impression: Anxiety Alcohol abuse Plan: 1. You were evaluated today on an emergent basis. Your labs are unremarkable. Please follow up with outpatient Alcohol Treatment programs. 2. You can alternate Tylenol and ibuprofen as needed for pain and fever management. 3. We encourage you to follow up with your primary care provider and/or recommended specialist in the next few days for re-evaluation and further care/management. 4. If your symptoms should worsen, new symptoms develop or any of the signs and symptoms we discussed should arise please return to the emergency room or call 911 (if needed). Definitive disposition and diagnosis as appropriate pending reevaluation and review of above. Generalized Pain Score (Numeric/FACES): 6 - Related Data Allergies Allergy/AdvReac Type Severity Reaction Status Date / Time hydrocodone Allergy Intermediate Vomiting Verified 04/23/21 21:24 Home Meds: Home Meds Topiramate [Topamax] 25 mg PO BID #60 tablet 03/24/21 [Rx] busPIRone [Buspar] 15 mg PO BID #60 tablet 03/24/21 [Rx] Past Medical History - Past Health History Medical/Surgical History: Denies Medical/Surgical History HEENT History: Reports: None Cardiovascular History: Reports: None Respiratory History: Reports: None Gastrointestinal History: Reports: None Genitourinary History: Reports: None Musculoskeletal History: Reports: None Neurological History: Reports: None Psychiatric History: Reports: Addiction, Anxiety, Depression Endocrine/Metabolic History: Reports: None Hematologic History: Reports: None Immunologic History: Reports: None Oncologic (Cancer) History: Reports: None Dermatologic History: Reports: None - Infectious Disease History Infectious Disease History: Reports: Chicken Pox, Mononucleosis, Novel Coronavirus - Past Surgical History Head Surgeries/Procedures: Reports: None HEENT Surgical History: Reports: None GI Surgical History: Reports: None Social & Family History - Family History Family Medical History: No Pertinent Family History - Caffeine Use Caffeine Use: Reports: Coffee - Alcohol Use Days Per Week of Alcohol Use: 7 Number of Drinks Per Day: 15 Total Drinks Per Week: 105 - Recreational Drug Use Recreational Drug Use: No - Living Situation & Occupation Living situation: Reports: Occupation: Unemployed ED ROS GENERAL - Review of Systems Review Of Systems: Comprehensive ROS is negative, except as noted in HPI. ED EXAM, GENERAL - Physical Exam Exam: See Below (See dictation) Course - Vital Signs Last Recorded V/S: Last Vital Signs Temp 97.3 F 08/04/21 13:48 Pulse 102 H 08/04/21 16:49 Resp 20 08/04/21 16:49 BP 141/97 H 08/04/21 16:49 Pulse Ox 94 L 08/04/21 16:49 - Orders/Labs/Meds Orders: Active Orders 24 hr Category Date Time Status DRUG SCREEN, URINE [URCHEM] Stat Lab 08/04/21 15:45 Ordered UA RFX OSORIO AND CULT IF INDIC [URIN] Stat Lab 08/04/21 15:45 Ordered Labs: Laboratory Tests 08/04/21 08/04/21 Range/Units 16:01 16:01 WBC 6.10 (4.0-11.0) K/uL RBC 5.51 (4.50-5.90) M/uL Hgb 17.5 H (13.0-17.0) g/dL Hct 48.9 (38.0-50.0) % MCV 88.7 (80.0-98.0) fL MCH 31.8 (27.0-32.0) pg MCHC 35.8 (31.0-37.0) g/dL RDW Std Deviation 42.0 (28.0-62.0) fl RDW Coeff of Joseline 13 (11.0-15.0) % Plt Count 240 (150-400) K/uL MPV 10.40 (7.40-12.00) fL Neut % (Auto) 39.8 L (48.0-80.0) % Lymph % (Auto) 50.5 H (16.0-40.0) % Mcleod % (Auto) 9.0 (0.0-15.0) % Eos % (Auto) 0.2 (0.0-7.0) % Baso % (Auto) 0.5 (0.0-1.5) % Neut # (Auto) 2.4 (1.4-5.7) K/uL Lymph # (Auto) 3.1 H (0.6-2.4) K/uL Mcleod # (Auto) 0.6 (0.0-0.8) K/uL Eos # (Auto) 0.0 (0.0-0.7) K/uL Baso # (Auto) 0.0 (0.0-0.1) K/uL Nucleated RBC % 0.0 /100WBC Nucleated RBCs # 0 K/uL Sodium 140 (136-148) mmol/L Potassium 3.2 L (3.5-5.1) mmol/L Chloride 101 (98-107) mmol/L Carbon Dioxide 28.6 (21.0-32.0) mmol/L BUN 8 (7.0-18.0) mg/dL Creatinine 1.0 (0.8-1.3) mg/dL Est Cr Clr Drug Dosing 111.89 mL/min Estimated GFR (MDRD) > 60.0 ml/min Glucose 110 H (74-106) mg/dL Calcium 8.5 (8.5-10.1) mg/dL Magnesium 2.1 (1.8-2.4) mg/dL Total Bilirubin 0.9 (0.2-1.0) mg/dL AST 79 H (15-37) IU/L ALT 63 (14-63) IU/L Alkaline Phosphatase 101 (46-116) U/L Total Protein 8.1 (6.4-8.2) g/dL Albumin 4.6 (3.4-5.0) g/dL Globulin 3.5 (2.6-4.0) g/dL Albumin/Globulin Ratio 1.3 (0.9-1.6) Lipase 66 L (73-393) U/L Meds: Medications Discontinued Medications Generic Name Dose Route Start Last Admin Trade Name Freq PRN Reason Stop Dose Admin Sodium Chloride 1,000 mls @ 999 mls/hr 08/04/21 15:40 08/04/21 16:00 Normal Saline IV 08/04/21 16:40 999 mls/hr STAT ONE Administration Lorazepam 1 mg 08/04/21 15:45 08/04/21 16:00 Lorazepam 2 Mg/Ml Sdv IVPUSH 08/04/21 15:46 1 mg ONETIME ONE Administration Potassium Chloride 40 meq 08/04/21 16:58 Potassium Chloride 20 Meq Tab.Er PO 08/04/21 16:59 ONETIME ONE Departure - Departure Time of Disposition: 17:10 Disposition: Home, Self-Care 01 Clinical Impression: Alcohol abuse, Anxiety - Discharge Information Instructions: Alcohol Use Disorder Referrals: PCP,None [Primary Care Provider] - Forms: ED Department Discharge Additional Instructions: The following information is given to patients seen in the emergency department who are being discharged to home. This information is to outline your options for follow-up care. We provide all patients seen in our emergency department with a follow-up referral. The need for follow-up, as well as the timing and circumstances, are variable depending upon the specifics of your emergency department visit. If you don't have a primary care physician on staff, we will provide you with a referral. We always advise you to contact your personal physician following an emergency department visit to inform them of the circumstance of the visit and for follow-up with them and/or the need for any referrals to a consulting specialist. The emergency department will also refer you to a specialist when appropriate. This referral assures that you have the opportunity for follow-up care with a specialist. All of these measure are taken in an effort to provide you with optimal care, which includes your follow-up. Under all circumstances we always encourage you to contact your private physician who remains a resource for coordinating your care. When calling for follow-up care, please make the office aware that this follow-up is from your recent emergency room visit. If for any reason you are refused follow-up, please contact the [facility] Emergency Department at and asked to speak to the emergency department charge nurse. [facility] [address] [place] [address] [place] [address] Thank you for choosing the [facility] emergency department in [place] for your medical needs today. It was a pleasure caring for you. Today you were seen in the emergency department for alcohol abuse. 1. You were evaluated today on an emergent basis. Your labs are unremarkable. Please follow up with outpatient Alcohol Treatment programs. 2. You can alternate Tylenol and ibuprofen as needed for pain and fever management. 3. We encourage you to follow up with your primary care provider and/or recommended specialist in the next few days for re-evaluation and further care/management. 4. If your symptoms should worsen, new symptoms develop or any of the signs and symptoms we discussed should arise please return to the emergency room or call 911 (if needed). Sepsis Event Note (ED) - Evaluation Sepsis Screening Result: Possible Sepsis Risk - Focused Exam Vital Signs: Vital Signs Temp Pulse Resp BP Pulse Ox 08/04/21 16:49 102 H 20 141/97 H 94 L 08/04/21 13:48 97.3 F 127 H 20 163/100 H 96 - My Orders Last 24 Hours: My Active Orders 08/04/21 15:45 DRUG SCREEN, URINE [URCHEM] Stat UA RFX OSORIO AND CULT IF INDIC [URIN] Stat - Assessment/Plan Last 24 Hours: My Active Orders 08/04/21 15:45 DRUG SCREEN, URINE [URCHEM] Stat UA RFX OSORIO AND CULT IF INDIC [URIN] Stat
[2021-08-04 16:43] LABS: BLOOD UREA NITROGEN,BUN 8 mg/dL (7.0-18.0); CARBON DIOXIDE,CO2 28.6 mmol/L (21.0-32.0); CHLORIDE,CL 101 mmol/L (98-107); GLUCOSE RANDOM 110 mg/dL (74-106); LIPASE 66 U/L (73-393); POTASSIUM,K 3.2 mmol/L (3.5-5.1); SODIUM,NA 140 mmol/L (136-148)
[2021-08-04] MEDS ORDERED: Potassium Chloride 20 MEQ Tab.ER PO ONE (16:58)
[2021-08-04 19:30] VITALS: BP 143/94; PULSE 113
== END 2021-08-04 17:28 | disposition home or self-care (01) ==
LOC: MW.ED 13:29
DX: F41.9 Anxiety disorder, unspecified (principal); F10.10 Alcohol abuse, uncomplicated; Z88.5 Allergy status to narcotic agent
CPT/HCPCS: 36415; 80053; 83690; 83735; 85025; 96374; 99284; A9270; J2060; J7030

== ENCOUNTER 2021-08-15 18:04 | Inpatient (IN) | payer SELFPAY ==
[2021-08-15] MEDS ORDERED: Sodium Chloride 0.9% 1,000 ML IV ONE ×2 (18:09→19:23)
[2021-08-15] MEDS ORDERED: LORazepam 2 MG/ML SDV IVPUSH ONE ×2 (18:09→19:23)
--- NOTE | 2021-08-15 18:31 | PCM.EKG ---
#1 Interpretation EKG Date: 08/15/21 Time: 18:15 EKG Interpretation Comments: Sinus tachycardia rate of 127 prolonged SC interval at 448 borderline prolonged QT interval at 492 no acute ischemia
--- NOTE | 2021-08-15 19:02 | EDM.PDOCBH ---
ED HPI GENERAL MEDICAL PROBLEM - General Stated Complaint: UNRESPONSIVE Time Seen by Provider: 08/15/21 18:43 Source of Information: Reports: Patient, EMS History Limitations: Reports: No Limitations - History of Present Illness INITIAL COMMENTS - FREE TEXT/NARRATIVE: HISTORY AND PHYSICAL: History of present illness: Patient is a 31-year-old male who presents to the emergency room with complaints of seizures, feeling unwell, chills and diaphoresis. Patient states he is a chronic alcoholic and has been trying to detox himself from drinking. He states he attempted to detox from alcohol 2 weeks ago and had several seizures, started drinking again, states his last drink was 2 days ago. Apparently someone had called EMS to his home where they report he was unresponsive but breathing on his own. EMS is [facility], transported him here. Upon arrival the patient is alert and answering questions. He is diaphoretic and tremulous. He states he feels chilled, nauseated and generally unwell. Patient does have various bruises on his body, appear to be healing -he states he is unsure of how those occurred. States, "I could have fallen or something". Patient denies any headache, change in vision, syncope or near syncope. Denies any chest pain, back pain, shortness of breath or cough. Denies any abdominal pain, diarrhea, constipation or dysuria. Has not noted any blood in urine or stool. Patient has not been eating and drinking appropriately the past week. Review of systems: As per history of present illness and below otherwise all systems reviewed and negative. Past medical history: As per history of present illness and as reviewed below otherwise noncontributory. Surgical history: As per history of present illness and as reviewed below otherwise noncontributor y. Social history: See social history for further information Family history: As per history of present illness and as reviewed below otherwise noncontributory. Physical exam: General: Well developed and well nourished 31 year old male. Alert and orientated x 3. Nontoxic in appearance and in no acute distress. Vital signs are stable and have been reviewed by me. Nursing notes were reviewed. HEENT: Nontender to touch, no crepitus, normocephalic, pupils equal and reactive bilaterally, healing bruising above left eye, negative for conjunctival pallor or scleral icterus, mucous membranes moist, TMs normal bilaterally, throat clear, teeth intact, neck supple, nontender, trachea midline. No drooling or trismus noted. No meningeal signs. No hot potato voice noted. Lungs: Clear to auscultation bilaterally. No wheezes, rales, or rhonchi. Chest nontender. Normal work of breathing, no accessory muscles used. Heart: S1S2, regular rate and rhythm without overt murmur, gallops, or rubs. No JVD. No peripheral edema Abdomen: Soft, nondistended, nontender. Normoactive bowel sounds. Negative for masses or costovertebral tenderness. Pelvis: Stable nontender. C-spine/Back: No pinpoint vertebral tenderness upon palpation. No crepitus, step-offs or obvious deformities. Patient is ambulatory into the emergency room without difficulty or deficit. Able to rock back on heels and walk on toes. Den ies any urinary or fecal incontinence. Denies any numbness, tingling or saddle paresthesia. No concerns of serious infection, fracture or cord compression, or cauda equina syndrome. Deep tendon reflexes brisk bilaterally. Skin: Various bruising at different stages to left eye, left lateral chest wall, and right anterior hip. Otherwise skin is diaphoretic, pink and warm. No lesions or rashes noted. Hematologic: No petechiae or purpra. Mucosa appropriate color and normal nail bed color and refill. Extremities: Nontender to palpation, he moves all extremities per self without difficulty or deficits, negative for cords or calf pain. Neurovascular unremarkable. Neuro: Awake, alert, oriented. Cranial nerves II through XII unremarkable. Cerebellum unremarkable. Motor and sensory unremarkable throughout. Exam nonfocal. Psychiatric: Mood and affect are appropriate. Normal thought process. Answering questions appropriately. Please note that the patient was seen and evaluated during the 2019 SARS-CoV-2 novel coronavirus pandemic period. Community viral transmission is ongoing at time of this encounter and the emergency department is operating under pandemic response procedures. Medical Decision Making: Patient is a 31-year-old male who is brought to the emergency room by ambulance after an episode of unresponsiveness. Patient states he is having seizures from withdrawing from alcohol. He has various healing bruises to his body states he may have fallen or something. Denies any known specific injury. Upon arrival the patient is alert, oriented and answering questions appropriately. He is diaphoretic and tremulous. Rough estimate of CIWA is 30. He states he is a chronic alcoholic and has not had a drink in 2 to 4 days. He states he wants help for his alcohol withdrawal symptoms. Patient does have a slight leukocytosis without known source. Does appear dehydrated with some electrolyte derangement. Negative drug screen. Alcohol less than 3. He has received fluids and 2 separate doses of Ativan. At this time he is resting and states his symptoms do feel improved. I have talked with the patient about today's findings, in addition to providing specific details for plan of care - he is agreeable and happy that he is being admitted. Vital signs are improving and stable. Dr England has been here and evaluated patient. He is agreeable for ICU admission. Patient's COVID is negative. Diagnostics: CBC, CMP, EKG, Head CT Therapeutics: IV fluids, Ativan Impression: Alcohol abuse Seizure due to alcohol withdrawal Multiple falls Plan: ICU admission with telemetry Definitive disposition and diagnosis as appropriate pending reevaluation and review of above. - Related Data Allergies Allergy/AdvReac Type Severity Reaction Status Date / Time hydrocodone Allergy Intermediate Vomiting Verified 08/15/21 18:20 Home Meds: Home Meds busPIRone [Buspar] 15 mg PO BID #60 tablet 03/24/21 [Rx] Past Medical History - Past Health History Medical/Surgical History: Denies Medical/Surgical History HEENT History: Reports: None Cardiovascular History: Reports: None Respiratory History: Reports: None Gastrointestinal History: Reports: None Genitourinary History: Reports: None Musculoskeletal History: Reports: None Neurological History: Reports: None Psychiatric History: Reports: Addiction, Anxiety, Depression Endocrine/Metabolic History: Reports: None Hematologic History: Reports: None Immunologic History: Reports: None Oncologic (Cancer) History: Reports: None Dermatologic History: Reports: None - Infectious Disease History Infectious Disease History: Reports: Chicken Pox, Mononucleosis, Novel Coronavirus - Past Surgical History Head Surgeries/Procedures: Reports: None HEENT Surgical History: Reports: None GI Surgical History: Reports: None Social & Family History - Family History Family Medical History: No Pertinent Family History - Tobacco Use Tobacco Use Status *Q: Never Tobacco User - Caffeine Use Caffeine Use: Reports: None - Recreational Drug Use Recreational Drug Use: No - Living Situation & Occupation Living situation: Reports: Occupation: Unemployed ED ROS GENERAL - Review of Systems Review Of Systems: Comprehensive ROS is negative, except as noted in HPI. ED EXAM, BEHAVIORAL HEALTH - Physical Exam Exam: See Below (See dictation) COURSE, BEHAVIORAL HEALTH COMP - Course Vital Signs: Last Vital Signs Temp 96.7 F L 08/15/21 18:04 Pulse 118 H 08/15/21 21:16 Resp 20 08/15/21 21:16 BP 146/80 H 08/15/21 21:16 Pulse Ox 99 08/15/21 21:16 Orders, Labs, Meds: Active Orders 24 hr Category Date Time Status CIWAA Assessment [RC] ASDIRECTED Care 08/15/21 19:25 Active Communication Order [RC] STAT Care 08/15/21 19:25 Active CULTURE URINE [MREF] Stat Lab 08/15/21 20:30 Received Sodium Chloride 0.9% [Normal Saline] 1,000 ml Med 08/15/21 19:23 Active IV STAT Medication Orders Diazepam (Diazepam 5 Mg Tab) 5 mg PO Q8H PENDING SALE TO [facility] Last Admin: 08/15/21 21:34 Dose: 5 mg Documented by: BHARATH Folic Acid (Folic Acid 50 Mg/10 Ml Mdv) 1 mg SUBCUT DAILY PENDING SALE TO [facility] Last Admin: 08/15/21 21:35 Dose: 1 mg Documented by: BHARATH Sodium Chloride (Normal Saline) 1,000 mls @ 125 mls/hr IV STAT ONE Stop: 08/16/21 03:22 Last Admin: 08/15/21 19:49 Dose: 125 mls/hr Documented by: BHARATH Pantoprazole Sodium 40 mg/ (Sodium Chloride) 20 mls @ 420 mls/hr IVPUSH Q24H COLEEN Last Admin: 08/15/21 21:32 Dose: 420 mls/hr Documented by: BHARATH Lorazepam (Lorazepam 2 Mg/Ml Sdv) 0 mg IVPUSH Q4H PRN; Protocol PRN Reason: CIWAA Thiamine HCl (Thiamine 200 Mg/2 Ml Mdv) 100 mg IVPUSH DAILY PENDING SALE TO [facility] Last Admin: 08/15/21 21:31 Dose: 100 mg Documented by: BHARATH Laboratory Tests 08/15/21 08/15/21 08/15/21 Range/Units 19:15 19:15 19:15 WBC 16.46 H (4.0-11.0) K/uL RBC 5.20 (4.50-5.90) M/uL Hgb 16.8 (13.0-17.0) g/dL Hct 46.0 (38.0-50.0) % MCV 88.5 (80.0-98.0) fL MCH 32.3 H (27.0-32.0) pg MCHC 36.5 (31.0-37.0) g/dL RDW Std Deviation 41.3 (28.0-62.0) fl RDW Coeff of Joseline 13 (11.0-15.0) % Plt Count 114 L (150-400) K/uL MPV 11.60 (7.40-12.00) fL Add Manual Diff YES Neutrophils % (Manual) 87 H (48.0-80.0) % Lymphocytes % (Manual) 5 L (16.0-40.0) % Monocytes % (Manual) 8 (0.0-15.0) % Nucleated RBC % 0.0 /100WBC Absolute Seg Neuts 14.3 H (1.4-5.7) Lymphocytes # (Manual) 0.8 (0.6-2.4) Monocytes # (Manual) 1.3 H (0.0-0.8) Nucleated RBCs # 0 K/uL Sodium 137 (136-148) mmol/L Potassium 3.2 L (3.5-5.1) mmol/L Chloride 92 L (98-107) mmol/L Carbon Dioxide 27.3 (21.0-32.0) mmol/L BUN 9 (7.0-18.0) mg/dL Creatinine 1.4 H (0.8-1.3) mg/dL Est Cr Clr Drug Dosing 79.92 mL/min Estimated GFR (MDRD) 59.9 ml/min Glucose 200 H (74-106) mg/dL Hemoglobin A1c 5.8 (4.5 - 6.2) % Calcium 9.5 (8.5-10.1) mg/dL Magnesium 1.6 L (1.8-2.4) mg/dL Total Bilirubin 2.3 H (0.2-1.0) mg/dL AST 92 H (15-37) IU/L ALT 55 (14-63) IU/L Alkaline Phosphatase 103 (46-116) U/L Creatine Kinase 167 (26-308) U/L Total Protein 8.0 (6.4-8.2) g/dL Albumin 4.3 (3.4-5.0) g/dL Globulin 3.7 (2.6-4.0) g/dL Albumin/Globulin Ratio 1.2 (0.9-1.6) Lipase 121 (73-393) U/L Ethyl Alcohol 3 mg/dL SARS-CoV-2 RNA (HILDA) (NEGATIVE) 08/15/21 Range/Units 19:30 WBC (4.0-11.0) K/uL RBC (4.50-5.90) M/uL Hgb (13.0-17.0) g/dL Hct (38.0-50.0) % MCV (80.0-98.0) fL MCH (27.0-32.0) pg MCHC (31.0-37.0) g/dL RDW Std Deviation (28.0-62.0) fl RDW Coeff of Joseline (11.0-15.0) % Plt Count (150-400) K/uL MPV (7.40-12.00) fL Add Manual Diff Neutrophils % (Manual) (48.0-80.0) % Lymphocytes % (Manual) (16.0-40.0) % Monocytes % (Manual) (0.0-15.0) % Nucleated RBC % /100WBC Absolute Seg Neuts (1.4-5.7) Lymphocytes # (Manual) (0.6-2.4) Monocytes # (Manual) (0.0-0.8) Nucleated RBCs # K/uL Sodium (136-148) mmol/L Potassium (3.5-5.1) mmol/L Chloride (98-107) mmol/L Carbon Dioxide (21.0-32.0) mmol/L BUN (7.0-18.0) mg/dL Creatinine (0.8-1.3) mg/dL Est Cr Clr Drug Dosing mL/min Estimated GFR (MDRD) ml/min Glucose (74-106) mg/dL Hemoglobin A1c (4.5 - 6.2) % Calcium (8.5-10.1) mg/dL Magnesium (1.8-2.4) mg/dL Total Bilirubin (0.2-1.0) mg/dL AST (15-37) IU/L ALT (14-63) IU/L Alkaline Phosphatase (46-116) U/L Creatine Kinase (26-308) U/L Total Protein (6.4-8.2) g/dL Albumin (3.4-5.0) g/dL Globulin (2.6-4.0) g/dL Albumin/Globulin Ratio (0.9-1.6) Lipase (73-393) U/L Ethyl Alcohol mg/dL SARS-CoV-2 RNA (HILDA) NEGATIVE (NEGATIVE) Medications Generic Name Dose Route Start Last Admin Trade Name Freq PRN Reason Stop Dose Admin Diazepam 5 mg 08/15/21 21:15 08/15/21 21:34 Diazepam 5 Mg Tab PO 5 mg Q8H COLEEN Administration Folic Acid 1 mg 08/15/21 21:15 08/15/21 21:35 Folic Acid 50 Mg/10 Ml Mdv SUBCUT 1 mg DAILY COLEEN Administration Sodium Chloride 1,000 mls @ 125 mls/hr 08/15/21 19:23 08/15/21 19:49 Normal Saline IV 08/16/21 03:22 125 mls/hr STAT ONE Administration Pantoprazole Sodium 40 mg/ 20 mls @ 420 mls/hr 08/15/21 21:15 08/15/21 21:32 Sodium Chloride IVPUSH 420 mls/hr Q24H COLEEN Administration Lorazepam 0 mg 08/15/21 21:09 Lorazepam 2 Mg/Ml Sdv IVPUSH Q4H PRN CIWAA Protocol Thiamine HCl 100 mg 08/15/21 21:15 08/15/21 21:31 Thiamine 200 Mg/2 Ml Mdv IVPUSH 100 mg DAILY COLEEN Administration Discontinued Medications Generic Name Dose Route Start Last Admin Trade Name Freq PRN Reason Stop Dose Admin Sodium Chloride 1,000 mls @ 999 mls/hr 08/15/21 18:09 08/15/21 18:19 Normal Saline IV 08/15/21 19:09 999 mls/hr STAT ONE Administration Lorazepam 1 mg 08/15/21 18:09 08/15/21 18:19 Lorazepam 2 Mg/Ml Sdv IVPUSH 08/15/21 18:10 1 mg ONETIME ONE Administration Lorazepam 1 mg 08/15/21 19:23 08/15/21 19:48 Lorazepam 2 Mg/Ml Sdv IVPUSH 08/15/21 19:24 1 mg ONETIME ONE Administration Departure - Departure Time of Disposition: 21:38 Disposition: Admitted As Inpatient 68 Clinical Impression: Alcohol abuse, Multiple falls Seizure due to alcohol withdrawal Qualifiers: Complication of substance-induced condition: uncomplicated Qualified Code(s): F10.230 - Alcohol dependence with withdrawal, uncomplicated - Discharge Information Sepsis Event Note (ED) - Evaluation Sepsis Screening Result: No Definite Risk - Focused Exam Vital Signs: Vital Signs Temp Pulse Resp BP Pulse Ox 08/15/21 18:37 108 H 20 163/74 H 98 08/15/21 18:04 96.7 F L 141 H 24 H 139/103 H 95 - My Orders Last 24 Hours: My Active Orders 08/15/21 19:23 Sodium Chloride 0.9% [Normal Saline] 1,000 ml IV STAT 08/15/21 19:25 CIWAA Assessment [RC] ASDIRECTED Communication Order [RC] STAT 08/15/21 20:30 CULTURE URINE [MREF] Stat - Assessment/Plan Last 24 Hours: My Active Orders 08/15/21 19:23 Sodium Chloride 0.9% [Normal Saline] 1,000 ml IV STAT 08/15/21 19:25 CIWAA Assessment [RC] ASDIRECTED Communication Order [RC] STAT 08/15/21 20:30 CULTURE URINE [MREF] Stat
[2021-08-15 19:41] LABS: CARBON DIOXIDE,CO2 27.3 mmol/L (21.0-32.0); POTASSIUM,K 3.2 mmol/L (3.5-5.1)
--- NOTE | 2021-08-15 20:02 | CT ---
INDICATION: Multiple falls. COMPARISON: None available. TECHNIQUE: CT examination of the head was performed with 5 mm thick axial and 2 mm thick coronal and sagittal sections without intravenous contrast. Images were obtained from the vertex of the skull through the skull base, and I examined the images with the brain and bone windows. Please note that all CT scans at this facility use dose modulation, iterative reconstruction, and/or weight-based dosing when appropriate to reduce radiation dose to as low as reasonably achievable. FINDINGS: : The brain is normal in appearance for the patient`s age on today`s study, with no sign of mass lesion, mass effect, hemorrhage, or edema. The ventricles and sulci are normal in appearance for the patient`s age. The visualized portions of the orbits are normal in appearance. The visualized portions of the paranasal sinuses and mastoids are clear. The osseous structures are normal in their appearance with no sign of abnormality in the skull base or calvarium. IMPRESSION: No sign of closed head injury. Normal noncontrast CT of the head for the patient`s age. Please note that all CT scans at this facility use dose modulation, iterative reconstruction, and/or weight-based dosing when appropriate to reduce radiation dose to as low as reasonably achievable. Dictated by Adi Weber MD @ 08/15/2021 8:01:38 PM (Electronically Signed)
--- NOTE | 2021-08-15 20:06 | CR ---
INDICATION: falls/detoxing from etoh CHEST, ONE VIEW AP radiographs of the chest were performed. Comparison: No previous studies are currently available for comparison. The lungs appear clear and no pleural effusions are identified. The cardiomediastinal silhouette and pulmonary vasculature appear normal, as do the visualized bones. IMPRESSION: No acute intrathoracic abnormality identified. JEANETTE HUFF MD [facility] Dictated by: Jacky Huff MD @ 08/15/2021 20:05:45 (Electronically Signed)
[2021-08-15 21:26] LABS: HEMOGLOBIN A1C 5.8 %
--- NOTE | 2021-08-15 21:28 | PCM.HP.2 ---
H&P History of Present Illness - General Date of Service: 08/15/21 Admit Problem/Dx: Admission Diagnosis/Problem Admission Diagnosis/Problem Alcohol withdrawal seizure - History of Present Illness Initial Comments - Free Text/Narative: 31 yo male with pmh of alcohol abuse who presnets to the ED after having a sie zure at home. He stopped drinking several days ago and has been reporting shakes, tremors, nausea and vomiting. Patient denies any fevers, chills, blood in stool, or vomiting. Patient is requesting detox. - Related Data Allergies/Adverse Reactions: Allergies Allergy/AdvReac Type Severity Reaction Status Date / Time hydrocodone Allergy Intermediate Vomiting Verified 08/15/21 18:20 Home Medications: Home Meds busPIRone [Buspar] 15 mg PO BID #60 tablet 03/24/21 [Rx] Past Medical History - Past Health History Medical/Surgical History: Denies Medical/Surgical History HEENT History: Reports: None Cardiovascular History: Reports: None Respiratory History: Reports: None Gastrointestinal History: Reports: None Genitourinary History: Reports: None Musculoskeletal History: Reports: None Neurological History: Reports: None Psychiatric History: Reports: Addiction, Anxiety, Depression Endocrine/Metabolic History: Reports: None Hematologic History: Reports: None Immunologic History: Reports: None Oncologic (Cancer) History: Reports: None Dermatologic History: Reports: None - Infectious Disease History Infectious Disease History: Reports: Chicken Pox, Mononucleosis, Novel Coronavirus - Past Surgical History Head Surgeries/Procedures: Reports: None HEENT Surgical History: Reports: None GI Surgical History: Reports: None Social & Family History - Family History Family Medical History: No Pertinent Family History - Tobacco Use Tobacco Use Status *Q: Never Tobacco User - Caffeine Use Caffeine Use: Reports: None - Recreational Drug Use Recreational Drug Use: No - Living Situation & Occupation Living situation: Reports: Occupation: Unemployed H&P Review of Systems - Review of Systems: Review Of Systems: Comprehensive ROS is negative, except as noted in HPI. Exam - Exam Exam: See Below - Vital Signs Vital Signs: Last Vital Signs Temp 35.9 C L 08/15/21 18:04 Pulse 118 H 08/15/21 21:16 Resp 20 08/15/21 21:16 BP 146/80 H 08/15/21 21:16 Pulse Ox 99 08/15/21 21:16 Weight: 72.575 kg - Exam General: Alert, Oriented HEENT: Mucosa Moist & [place]: Supple Cardiovascular: Regular Rate, Regular Rhythm GI/Abdominal Exam: Normal Bowel Sounds, Soft, Non-Tender Extremities: Normal Inspection, Non-Tender, No Pedal Edema Skin: Warm, Dry, Intact Neurological: Cranial Nerves Intact, Reflexes Equal Bilateral, Normal Speech. No: Focal Deficit - Patient Data Lab Results Last 24 hrs: Laboratory Results - last 24 hr 08/15/21 08/15/21 08/15/21 Range/Units 19:15 19:15 19:30 WBC 16.46 H (4.0-11.0) K/uL RBC 5.20 (4.50-5.90) M/uL Hgb 16.8 (13.0-17.0) g/dL Hct 46.0 (38.0-50.0) % MCV 88.5 (80.0-98.0) fL MCH 32.3 H (27.0-32.0) pg MCHC 36.5 (31.0-37.0) g/dL RDW Std Deviation 41.3 (28.0-62.0) fl RDW Coeff of Joseline 13 (11.0-15.0) % Plt Count 114 L (150-400) K/uL MPV 11.60 (7.40-12.00) fL Add Manual Diff YES Neutrophils % (Manual) 87 H (48.0-80.0) % Lymphocytes % (Manual) 5 L (16.0-40.0) % Monocytes % (Manual) 8 (0.0-15.0) % Nucleated RBC % 0.0 /100WBC Absolute Seg Neuts 14.3 H (1.4-5.7) Lymphocytes # (Manual) 0.8 (0.6-2.4) Monocytes # (Manual) 1.3 H (0.0-0.8) Nucleated RBCs # 0 K/uL Sodium 137 (136-148) mmol/L Potassium 3.2 L (3.5-5.1) mmol/L Chloride 92 L (98-107) mmol/L Carbon Dioxide 27.3 (21.0-32.0) mmol/L BUN 9 (7.0-18.0) mg/dL Creatinine 1.4 H (0.8-1.3) mg/dL Est Cr Clr Drug Dosing 79.92 mL/min Estimated GFR (MDRD) 59.9 ml/min Glucose 200 H (74-106) mg/dL Calcium 9.5 (8.5-10.1) mg/dL Magnesium 1.6 L (1.8-2.4) mg/dL Total Bilirubin 2.3 H (0.2-1.0) mg/dL AST 92 H (15-37) IU/L ALT 55 (14-63) IU/L Alkaline Phosphatase 103 (46-116) U/L Creatine Kinase 167 (26-308) U/L Total Protein 8.0 (6.4-8.2) g/dL Albumin 4.3 (3.4-5.0) g/dL Globulin 3.7 (2.6-4.0) g/dL Albumin/Globulin Ratio 1.2 (0.9-1.6) Lipase 121 (73-393) U/L Urine Color Urine Appearance Urine pH (5.0-8.0) Ur Specific [place] (1.001-1.035) Urine Protein (NEGATIVE) mg/dL Urine Glucose (UA) (NEGATIVE) mg/dL Urine Ketones (NEGATIVE) mg/dL Urine Occult Blood (NEGATIVE) Urine Nitrite (NEGATIVE) Urine Bilirubin (NEGATIVE) Urine Urobilinogen (<2.0) EU/dL Ur Leukocyte Esterase (NEGATIVE) Urine RBC (0-2/HPF) Urine WBC (0-5/HPF) Ur Epithelial Cells (NONE-FEW) Urine Bacteria (NEGATIVE) Urine Mucus (NONE-MOD) Urine Opiates Screen (NEGATIVE) Ur Oxycodone Screen (NEGATIVE) Urine Methadone Screen (NEGATIVE) Ur Barbiturates Screen (NEGATIVE) Ur Phencyclidine Scrn (NEGATIVE) Ur Amphetamine Screen (NEGATIVE) U Methamphetamines Scrn (NEGATIVE) U Benzodiazepines Scrn (NEGATIVE) U Cocaine Metab Screen (NEGATIVE) U Marijuana (THC) Screen (NEGATIVE) Ethyl Alcohol 3 mg/dL SARS-CoV-2 RNA (HILDA) NEGATIVE (NEGATIVE) 08/15/21 08/15/21 Range/Units 20:30 20:30 WBC (4.0-11.0) K/uL RBC (4.50-5.90) M/uL Hgb (13.0-17.0) g/dL Hct (38.0-50.0) % MCV (80.0-98.0) fL MCH (27.0-32.0) pg MCHC (31.0-37.0) g/dL RDW Std Deviation (28.0-62.0) fl RDW Coeff of Joseline (11.0-15.0) % Plt Count (150-400) K/uL MPV (7.40-12.00) fL Add Manual Diff Neutrophils % (Manual) (48.0-80.0) % Lymphocytes % (Manual) (16.0-40.0) % Monocytes % (Manual) (0.0-15.0) % Nucleated RBC % /100WBC Absolute Seg Neuts (1.4-5.7) Lymphocytes # (Manual) (0.6-2.4) Monocytes # (Manual) (0.0-0.8) Nucleated RBCs # K/uL Sodium (136-148) mmol/L Potassium (3.5-5.1) mmol/L Chloride (98-107) mmol/L Carbon Dioxide (21.0-32.0) mmol/L BUN (7.0-18.0) mg/dL Creatinine (0.8-1.3) mg/dL Est Cr Clr Drug Dosing mL/min Estimated GFR (MDRD) ml/min Glucose (74-106) mg/dL Calcium (8.5-10.1) mg/dL Magnesium (1.8-2.4) mg/dL Total Bilirubin (0.2-1.0) mg/dL AST (15-37) IU/L ALT (14-63) IU/L Alkaline Phosphatase (46-116) U/L Creatine Kinase (26-308) U/L Total Protein (6.4-8.2) g/dL Albumin (3.4-5.0) g/dL Globulin (2.6-4.0) g/dL Albumin/Globulin Ratio (0.9-1.6) Lipase (73-393) U/L Urine Color ORANGE Urine Appearance HAZY Urine pH 6.5 (5.0-8.0) Ur Specific [place] 1.025 (1.001-1.035) Urine Protein 100 H (NEGATIVE) mg/dL Urine Glucose (UA) NEGATIVE (NEGATIVE) mg/dL Urine Ketones 15 H (NEGATIVE) mg/dL Urine Occult Blood SMALL H (NEGATIVE) Urine Nitrite NEGATIVE (NEGATIVE) Urine Bilirubin NEGATIVE (NEGATIVE) Urine Urobilinogen 0.2 (<2.0) EU/dL Ur Leukocyte Esterase TRACE H (NEGATIVE) Urine RBC 0-2 (0-2/HPF) Urine WBC 0-2 (0-5/HPF) Ur Epithelial Cells RARE (NONE-FEW) Urine Bacteria FEW (NEGATIVE) Urine Mucus LIGHT (NONE-MOD) Urine Opiates Screen NEGATIVE (NEGATIVE) Ur Oxycodone Screen NEGATIVE (NEGATIVE) Urine Methadone Screen NEGATIVE (NEGATIVE) Ur Barbiturates Screen NEGATIVE (NEGATIVE) Ur Phencyclidine Scrn NEGATIVE (NEGATIVE) Ur Amphetamine Screen NEGATIVE (NEGATIVE) U Methamphetamines Scrn NEGATIVE (NEGATIVE) U Benzodiazepines Scrn NEGATIVE (NEGATIVE) U Cocaine Metab Screen NEGATIVE (NEGATIVE) U Marijuana (THC) Screen NEGATIVE (NEGATIVE) Ethyl Alcohol mg/dL SARS-CoV-2 RNA (HILDA) (NEGATIVE) Result Diagrams: 08/15/21 19:15 08/15/21 19:15 Sepsis Event Note - Evaluation Sepsis Screening Result: No Definite Risk - Focused Exam Vital Signs: Vital Signs Temp Pulse Resp BP Pulse Ox 08/15/21 21:16 118 H 20 146/80 H 99 08/15/21 18:37 108 H 20 163/74 H 98 08/15/21 18:04 35.9 C L 141 H 24 H 139/103 H 95 - Problem List (1) Alcohol withdrawal SNOMED Code(s): 464339781 ICD Code: F10.239 - ALCOHOL DEPENDENCE WITH WITHDRAWAL, UNSPECIFIED Status: Acute Current Visit: Yes (2) Seizure due to alcohol withdrawal SNOMED Code(s): 610186367 ICD Code: F10.239 - ALCOHOL DEPENDENCE WITH WITHDRAWAL, UNSPECIFIED; R56.9 - UNSPECIFIED CONVULSIONS Status: Acute Current Visit: Yes Qualifiers: Complication of substance-induced condition: uncomplicated Qualified Code(s): F10.230 - Alcohol dependence with withdrawal, uncomplicated; R56.9 - Unspecified convulsions Problem List Initiated/Reviewed/Updated: Yes Orders Last 24hrs: Active Orders 24 hr Category Date Time Status Admission Status [Patient Status] [ADT] Stat ADT 08/15/21 20:09 Active Antiembolic Devices [RC] PER UNIT ROUTINE Care 08/15/21 21:12 Ordered CIWAA Assessment [RC] ASDIRECTED Care 08/15/21 19:25 Active Communication Order [RC] STAT Care 08/15/21 19:25 Active Oxygen Therapy [RC] PRN Care 08/15/21 21:11 Ordered Up ad Zuleyka [RC] ASDIRECTED Care 08/15/21 21:11 Ordered VTE/DVT Education [RC] PER UNIT ROUTINE Care 08/15/21 21:11 Ordered Vital Signs [RC] Q4H Care 08/15/21 21:11 Ordered Regular Diet [DIET] Diet 08/15/21 Breakfast Ordered CBC WITH AUTO DIFF [HEME] AM Lab 08/16/21 05:11 Ordered CBC WITH AUTO DIFF [HEME] AM Lab 08/17/21 05:11 Ordered COMPREHENSIVE METABOLIC PN,CMP [CHEM] AM Lab 08/16/21 05:11 Ordered COMPREHENSIVE METABOLIC PN,CMP [CHEM] AM Lab 08/17/21 05:11 Ordered CULTURE URINE [MREF] Stat Lab 08/15/21 20:30 Received GLYCOSYLATED HEMOGLOBIN,HGBA1C [CHEM] Stat Lab 08/15/21 21:09 Ordered LACTATE SEPSIS W/ REFLEX [CHEM] Routine Lab 08/15/21 21:09 Ordered MAGNESIUM [CHEM] AM Lab 08/16/21 05:11 Ordered MAGNESIUM [CHEM] AM Lab 08/17/21 05:11 Ordered PHOSPHORUS [CHEM] AM Lab 08/16/21 05:11 Ordered PHOSPHORUS [CHEM] AM Lab 08/17/21 05:11 Ordered Folic Acid Med 08/15/21 21:15 Active 1 mg SUBCUT DAILY LORazepam [Ativan] Med 08/15/21 21:09 Ordered See Protocol IVPUSH Q4H PRN Pantoprazole [ProTONIX IV] 40 mg Med 08/15/21 21:15 Ordered Sodium Chloride 0.9% [Normal Saline] 20 ml IVPUSH Q24H Sodium Chloride 0.9% [Normal Saline] 1,000 ml Med 08/15/21 19:23 Active IV STAT Thiamine [Vitamin B-1] Med 08/15/21 21:15 Active 100 mg IVPUSH DAILY diazePAM [Valium.] Med 08/15/21 21:15 Ordered 5 mg PO Q8H Sequential Compression Device [OM.PC] Per Unit Routine Oth 08/15/21 21:11 Ordered Resuscitation Status Routine Resus Stat 08/15/21 21:11 Ordered Medication Orders Diazepam (Diazepam 5 Mg Tab) 5 mg PO Q8H COLEEN Folic Acid (Folic Acid 50 Mg/10 Ml Mdv) 1 mg SUBCUT DAILY COLEEN Sodium Chloride (Normal Saline) 1,000 mls @ 125 mls/hr IV STAT ONE Stop: 08/16/21 03:22 Last Admin: 08/15/21 19:49 Dose: 125 mls/hr Documented by: BHARATH Pantoprazole Sodium 40 mg/ (Sodium Chloride) 20 mls @ 420 mls/hr IVPUSH Q24H COLEEN Lorazepam (Lorazepam 2 Mg/Ml Sdv) 0 mg IVPUSH Q4H PRN; Protocol PRN Reason: CIWAA Thiamine HCl (Thiamine 200 Mg/2 Ml Mdv) 100 mg IVPUSH DAILY COLEEN Assessment/Plan Comment:: 31 yo male admitted for alcohol withdrawal. We will place on CIWAA protocol with ativan prn, thiamin and folic acid.
[2021-08-15] MEDS: Thiamine 200 MG/2 ML MDV IVPUSH SCH (21:31)
[2021-08-15] MEDS: Pantoprazole 40 MG in Sodium Chloride 0.9% 20 ML IVPUSH SCH (21:32)
[2021-08-15] MEDS: Diazepam 5 MG Tab PO SCH (21:34)
[2021-08-15] MEDS: Folic Acid 50 MG/10 ML MDV SUBCUT SCH (21:35)
[2021-08-15] MEDS: LORazepam 2 MG/ML SDV IVPUSH PRN (23:04)
--- NOTE | 2021-08-15 23:22 | PN ---
THC Physician - Brief Progress [id number]/18/2021 23:15[facility] Lev Guardado, ROB [facility] - MWN MAZIN BLOOMDate of Service 08/15/2021 23:15HPI/Events of Note eICU admission noteActive problems:1. Alcohol withdrawal seizures2. Alcohol use disorder3. A cute kidney injury4. Elevated lactate secondary to seizures5. Leukocytosis likely reactiveHPI:Histo ry obtained from revision of medical records and discussion with ICU nursing staff.31-year-old male w ith history of alcohol dependence had stopped alcohol consumption 3 days ago and developed seizure at home and became unresponsive. When EMS arrived patient was still spontaneously breathing and by the time he reached the emergency department he was able to follow commands and answer questions appropr iately. He appears to be volume depleted/dehydrated received IV fluid boluses. Also received benzod iazepines in addition to thiamine, folic acid and multivitamins. He is currently in the ICU for clos er monitoring and observation. Was found to have a creatinine of 1.4 from baseline of 0.9. CPK 126. Lactate 5.6. CT head showed no acute intracranial pathology. Chest x-ray was unremarkable. Urina lysis was not suggestive of UTI. COVID-19 PCR negative. No meningeal signs noted in reviewing medic al records.Patient was seen and evaluated by E care cameraLaying in bed, no acute distressVitals:Afeb rile, BP 146/80, P 92, RR 13, SPO2 96% on room airChart, labs and images reviewedeICU recommendations :-Continue current treatment plan as per primary hospital medicine team: Close neuro monitoring, neur ochecks, seizure precautions, CIWA protocol, benzodiazepine, thiamine, folic acid, multivitamin, IV f luid resuscitation, recheck lactate, DVT prophylaxis.-Social service consult to help with enrolling h im in alcohol abstinence program.Thank you for allowing us to participate in the care of your patient .Interventions Major-Seizures - evaluation and management, Other: Alcohol withdrawal seizuresElectron ically Signed by: Hanna Sosa) on 08/15/2021 23:22
[2021-08-16] MEDS: Ondansetron 4 MG/2 ML SDV IVPUSH PRN ×3 (02:09→15:01)
[2021-08-16] MEDS: LORazepam 2 MG/ML SDV IVPUSH PRN ×3 (02:18→23:49)
[2021-08-16] MEDS: Sodium Chloride 0.9% 1,000 ML IV SCH ×3 (03:39→23:57)
[2021-08-16] MEDS: Diazepam 5 MG Tab PO SCH ×3 (06:03→21:37)
[2021-08-16 06:38] LABS: BLOOD UREA NITROGEN,BUN 10 mg/dL (7.0-18.0); CARBON DIOXIDE,CO2 35.5 mmol/L (21.0-32.0); CHLORIDE,CL 96 mmol/L (98-107); GLUCOSE RANDOM 102 mg/dL (74-106); POTASSIUM,K 3.4 mmol/L (3.5-5.1); SODIUM,NA 136 mmol/L (136-148)
[2021-08-16] MEDS: Thiamine 200 MG/2 ML MDV IVPUSH SCH (08:20)
[2021-08-16] MEDS: Folic Acid 50 MG/10 ML MDV SUBCUT SCH (08:21)
--- NOTE | 2021-08-16 14:00 | PCM.PN ---
- General Info Date of Service: 08/16/21 - Review of Systems Systems Review Comment:: feeling better, shakes have improved, no more seizures - Patient Data Vitals - Most Recent: Last Vital Signs Temp 36.5 C 08/16/21 12:00 Pulse 105 H 08/15/21 23:00 Resp 17 08/16/21 13:00 BP 122/66 08/16/21 13:00 Pulse Ox 95 08/16/21 13:00 Weight - Most Recent: 72.575 kg I&O - Last 24 Hours: Intake & Output 08/15/21 08/16/21 08/16/21 22:59 06:59 14:59 Intake Total 680 Output Total 650 Balance 30 Lab Results Last 24 Hours: Laboratory Results - last 24 hr 08/15/21 08/15/21 08/15/21 Range/Units 19:15 19:15 19:15 WBC 16.46 H (4.0-11.0) K/uL RBC 5.20 (4.50-5.90) M/uL Hgb 16.8 (13.0-17.0) g/dL Hct 46.0 (38.0-50.0) % MCV 88.5 (80.0-98.0) fL MCH 32.3 H (27.0-32.0) pg MCHC 36.5 (31.0-37.0) g/dL RDW Std Deviation 41.3 (28.0-62.0) fl RDW Coeff of Joseline 13 (11.0-15.0) % Plt Count 114 L (150-400) K/uL MPV 11.60 (7.40-12.00) fL Neut % (Auto) (48.0-80.0) % Lymph % (Auto) (16.0-40.0) % [facility] % (Auto) (0.0-15.0) % Eos % (Auto) (0.0-7.0) % Baso % (Auto) (0.0-1.5) % Neut # (Auto) (1.4-5.7) K/uL Lymph # (Auto) (0.6-2.4) K/uL [facility] # (Auto) (0.0-0.8) K/uL Eos # (Auto) (0.0-0.7) K/uL Baso # (Auto) (0.0-0.1) K/uL Add Manual Diff YES Neutrophils % (Manual) 87 H (48.0-80.0) % Lymphocytes % (Manual) 5 L (16.0-40.0) % Monocytes % (Manual) 8 (0.0-15.0) % Nucleated RBC % 0.0 /100WBC Absolute Seg Neuts 14.3 H (1.4-5.7) Lymphocytes # (Manual) 0.8 (0.6-2.4) Monocytes # (Manual) 1.3 H (0.0-0.8) Nucleated RBCs # 0 K/uL Sodium 137 (136-148) mmol/L Potassium 3.2 L (3.5-5.1) mmol/L Chloride 92 L (98-107) mmol/L Carbon Dioxide 27.3 (21.0-32.0) mmol/L BUN 9 (7.0-18.0) mg/dL Creatinine 1.4 H (0.8-1.3) mg/dL Est Cr Clr Drug Dosing 79.92 mL/min Estimated GFR (MDRD) 59.9 ml/min Glucose 200 H (74-106) mg/dL Hemoglobin A1c 5.8 (4.5 - 6.2) % Lactic Acid (0.4-2.0) mmol/L Calcium 9.5 (8.5-10.1) mg/dL Phosphorus (2.6-4.7) mg/dL Magnesium 1.6 L (1.8-2.4) mg/dL Total Bilirubin 2.3 H (0.2-1.0) mg/dL AST 92 H (15-37) IU/L ALT 55 (14-63) IU/L Alkaline Phosphatase 103 (46-116) U/L Creatine Kinase 167 (26-308) U/L Total Protein 8.0 (6.4-8.2) g/dL Albumin 4.3 (3.4-5.0) g/dL Globulin 3.7 (2.6-4.0) g/dL Albumin/Globulin Ratio 1.2 (0.9-1.6) Lipase 121 (73-393) U/L Urine Color Urine Appearance Urine pH (5.0-8.0) Ur Specific Sylva (1.001-1.035) Urine Protein (NEGATIVE) mg/dL Urine Glucose (UA) (NEGATIVE) mg/dL Urine Ketones (NEGATIVE) mg/dL Urine Occult Blood (NEGATIVE) Urine Nitrite (NEGATIVE) Urine Bilirubin (NEGATIVE) Urine Urobilinogen (<2.0) EU/dL Ur Leukocyte Esterase (NEGATIVE) Urine RBC (0-2/HPF) Urine WBC (0-5/HPF) Ur Epithelial Cells (NONE-FEW) Urine Bacteria (NEGATIVE) Urine Mucus (NONE-MOD) Urine Opiates Screen (NEGATIVE) Ur Oxycodone Screen (NEGATIVE) Urine Methadone Screen (NEGATIVE) Ur Barbiturates Screen (NEGATIVE) Ur Phencyclidine Scrn (NEGATIVE) Ur Amphetamine Screen (NEGATIVE) U Methamphetamines Scrn (NEGATIVE) U Benzodiazepines Scrn (NEGATIVE) U Cocaine Metab Screen (NEGATIVE) U Marijuana (THC) Screen (NEGATIVE) Ethyl Alcohol 3 mg/dL SARS-CoV-2 RNA (HILDA) (NEGATIVE) 08/15/21 08/15/21 08/15/21 Range/Units 19:30 20:30 20:30 WBC (4.0-11.0) K/uL RBC (4.50-5.90) M/uL Hgb (13.0-17.0) g/dL Hct (38.0-50.0) % MCV (80.0-98.0) fL MCH (27.0-32.0) pg MCHC (31.0-37.0) g/dL RDW Std Deviation (28.0-62.0) fl RDW Coeff of Joseline (11.0-15.0) % Plt Count (150-400) K/uL MPV (7.40-12.00) fL Neut % (Auto) (48.0-80.0) % Lymph % (Auto) (16.0-40.0) % [facility] % (Auto) (0.0-15.0) % Eos % (Auto) (0.0-7.0) % Baso % (Auto) (0.0-1.5) % Neut # (Auto) (1.4-5.7) K/uL Lymph # (Auto) (0.6-2.4) K/uL [facility] # (Auto) (0.0-0.8) K/uL Eos # (Auto) (0.0-0.7) K/uL Baso # (Auto) (0.0-0.1) K/uL Add Manual Diff Neutrophils % (Manual) (48.0-80.0) % Lymphocytes % (Manual) (16.0-40.0) % Monocytes % (Manual) (0.0-15.0) % Nucleated RBC % /100WBC Absolute Seg Neuts (1.4-5.7) Lymphocytes # (Manual) (0.6-2.4) Monocytes # (Manual) (0.0-0.8) Nucleated RBCs # K/uL Sodium (136-148) mmol/L Potassium (3.5-5.1) mmol/L Chloride (98-107) mmol/L Carbon Dioxide (21.0-32.0) mmol/L BUN (7.0-18.0) mg/dL Creatinine (0.8-1.3) mg/dL Est Cr Clr Drug Dosing mL/min Estimated GFR (MDRD) ml/min Glucose (74-106) mg/dL Hemoglobin A1c (4.5 - 6.2) % Lactic Acid (0.4-2.0) mmol/L Calcium (8.5-10.1) mg/dL Phosphorus (2.6-4.7) mg/dL Magnesium (1.8-2.4) mg/dL Total Bilirubin (0.2-1.0) mg/dL AST (15-37) IU/L ALT (14-63) IU/L Alkaline Phosphatase (46-116) U/L Creatine Kinase (26-308) U/L Total Protein (6.4-8.2) g/dL Albumin (3.4-5.0) g/dL Globulin (2.6-4.0) g/dL Albumin/Globulin Ratio (0.9-1.6) Lipase (73-393) U/L Urine Color ORANGE Urine Appearance HAZY Urine pH 6.5 (5.0-8.0) Ur Specific Sylva 1.025 (1.001-1.035) Urine Protein 100 H (NEGATIVE) mg/dL Urine Glucose (UA) NEGATIVE (NEGATIVE) mg/dL Urine Ketones 15 H (NEGATIVE) mg/dL Urine Occult Blood SMALL H (NEGATIVE) Urine Nitrite NEGATIVE (NEGATIVE) Urine Bilirubin NEGATIVE (NEGATIVE) Urine Urobilinogen 0.2 (<2.0) EU/dL Ur Leukocyte Esterase TRACE H (NEGATIVE) Urine RBC 0-2 (0-2/HPF) Urine WBC 0-2 (0-5/HPF) Ur Epithelial Cells RARE (NONE-FEW) Urine Bacteria FEW (NEGATIVE) Urine Mucus LIGHT (NONE-MOD) Urine Opiates Screen NEGATIVE (NEGATIVE) Ur Oxycodone Screen NEGATIVE (NEGATIVE) Urine Methadone Screen NEGATIVE (NEGATIVE) Ur Barbiturates Screen NEGATIVE (NEGATIVE) Ur Phencyclidine Scrn NEGATIVE (NEGATIVE) Ur Amphetamine Screen NEGATIVE (NEGATIVE) U Methamphetamines Scrn NEGATIVE (NEGATIVE) U Benzodiazepines Scrn NEGATIVE (NEGATIVE) U Cocaine Metab Screen NEGATIVE (NEGATIVE) U Marijuana (THC) Screen NEGATIVE (NEGATIVE) Ethyl Alcohol mg/dL SARS-CoV-2 RNA (HILDA) NEGATIVE (NEGATIVE) 08/15/21 08/16/21 08/16/21 Range/Units 21:20 02:45 06:07 WBC 8.35 (4.0-11.0) K/uL RBC 4.54 (4.50-5.90) M/uL Hgb 14.5 (13.0-17.0) g/dL Hct 40.7 (38.0-50.0) % MCV 89.6 (80.0-98.0) fL MCH 31.9 (27.0-32.0) pg MCHC 35.6 (31.0-37.0) g/dL RDW Std Deviation 42.8 (28.0-62.0) fl RDW Coeff of Joseline 13 (11.0-15.0) % Plt Count 100 L (150-400) K/uL MPV 11.40 (7.40-12.00) fL Neut % (Auto) 64.6 (48.0-80.0) % Lymph % (Auto) 20.6 (16.0-40.0) % [facility] % (Auto) 14.6 (0.0-15.0) % Eos % (Auto) 0.1 (0.0-7.0) % Baso % (Auto) 0.1 (0.0-1.5) % Neut # (Auto) 5.4 (1.4-5.7) K/uL Lymph # (Auto) 1.7 (0.6-2.4) K/uL [facility] # (Auto) 1.2 H (0.0-0.8) K/uL Eos # (Auto) 0.0 (0.0-0.7) K/uL Baso # (Auto) 0.0 (0.0-0.1) K/uL Add Manual Diff Neutrophils % (Manual) (48.0-80.0) % Lymphocytes % (Manual) (16.0-40.0) % Monocytes % (Manual) (0.0-15.0) % Nucleated RBC % 0.0 /100WBC Absolute Seg Neuts (1.4-5.7) Lymphocytes # (Manual) (0.6-2.4) Monocytes # (Manual) (0.0-0.8) Nucleated RBCs # 0 K/uL Sodium (136-148) mmol/L Potassium (3.5-5.1) mmol/L Chloride (98-107) mmol/L Carbon Dioxide (21.0-32.0) mmol/L BUN (7.0-18.0) mg/dL Creatinine (0.8-1.3) mg/dL Est Cr Clr Drug Dosing mL/min Estimated GFR (MDRD) ml/min Glucose (74-106) mg/dL Hemoglobin A1c (4.5 - 6.2) % Lactic Acid 5.6 H* 2.6 H* (0.4-2.0) mmol/L Calcium (8.5-10.1) mg/dL Phosphorus (2.6-4.7) mg/dL Magnesium (1.8-2.4) mg/dL Total Bilirubin (0.2-1.0) mg/dL AST (15-37) IU/L ALT (14-63) IU/L Alkaline Phosphatase (46-116) U/L Creatine Kinase (26-308) U/L Total Protein (6.4-8.2) g/dL Albumin (3.4-5.0) g/dL Globulin (2.6-4.0) g/dL Albumin/Globulin Ratio (0.9-1.6) Lipase (73-393) U/L Urine Color Urine Appearance Urine pH (5.0-8.0) Ur Specific Sylva (1.001-1.035) Urine Protein (NEGATIVE) mg/dL Urine Glucose (UA) (NEGATIVE) mg/dL Urine Ketones (NEGATIVE) mg/dL Urine Occult Blood (NEGATIVE) Urine Nitrite (NEGATIVE) Urine Bilirubin (NEGATIVE) Urine Urobilinogen (<2.0) EU/dL Ur Leukocyte Esterase (NEGATIVE) Urine RBC (0-2/HPF) Urine WBC (0-5/HPF) Ur Epithelial Cells (NONE-FEW) Urine Bacteria (NEGATIVE) Urine Mucus (NONE-MOD) Urine Opiates Screen (NEGATIVE) Ur Oxycodone Screen (NEGATIVE) Urine Methadone Screen (NEGATIVE) Ur Barbiturates Screen (NEGATIVE) Ur Phencyclidine Scrn (NEGATIVE) Ur Amphetamine Screen (NEGATIVE) U Methamphetamines Scrn (NEGATIVE) U Benzodiazepines Scrn (NEGATIVE) U Cocaine Metab Screen (NEGATIVE) U Marijuana (THC) Screen (NEGATIVE) Ethyl Alcohol mg/dL SARS-CoV-2 RNA (HILDA) (NEGATIVE) 08/16/21 08/16/21 Range/Units 06:07 06:07 WBC (4.0-11.0) K/uL RBC (4.50-5.90) M/uL Hgb (13.0-17.0) g/dL Hct (38.0-50.0) % MCV (80.0-98.0) fL MCH (27.0-32.0) pg MCHC (31.0-37.0) g/dL RDW Std Deviation (28.0-62.0) fl RDW Coeff of Joseline (11.0-15.0) % Plt Count (150-400) K/uL MPV (7.40-12.00) fL Neut % (Auto) (48.0-80.0) % Lymph % (Auto) (16.0-40.0) % [facility] % (Auto) (0.0-15.0) % Eos % (Auto) (0.0-7.0) % Baso % (Auto) (0.0-1.5) % Neut # (Auto) (1.4-5.7) K/uL Lymph # (Auto) (0.6-2.4) K/uL [facility] # (Auto) (0.0-0.8) K/uL Eos # (Auto) (0.0-0.7) K/uL Baso # (Auto) (0.0-0.1) K/uL Add Manual Diff Neutrophils % (Manual) (48.0-80.0) % Lymphocytes % (Manual) (16.0-40.0) % Monocytes % (Manual) (0.0-15.0) % Nucleated RBC % /100WBC Absolute Seg Neuts (1.4-5.7) Lymphocytes # (Manual) (0.6-2.4) Monocytes # (Manual) (0.0-0.8) Nucleated RBCs # K/uL Sodium 136 (136-148) mmol/L Potassium 3.4 L (3.5-5.1) mmol/L Chloride 96 L (98-107) mmol/L Carbon Dioxide 35.5 H (21.0-32.0) mmol/L BUN 10 (7.0-18.0) mg/dL Creatinine 1.0 (0.8-1.3) mg/dL Est Cr Clr Drug Dosing 111.89 mL/min Estimated GFR (MDRD) > 60.0 ml/min Glucose 102 (74-106) mg/dL Hemoglobin A1c (4.5 - 6.2) % Lactic Acid 1.9 (0.4-2.0) mmol/L Calcium 9.2 (8.5-10.1) mg/dL Phosphorus 3.0 (2.6-4.7) mg/dL Magnesium 2.0 (1.8-2.4) mg/dL Total Bilirubin 3.1 H (0.2-1.0) mg/dL AST 99 H (15-37) IU/L ALT 46 (14-63) IU/L Alkaline Phosphatase 84 (46-116) U/L Creatine Kinase (26-308) U/L Total Protein 6.7 (6.4-8.2) g/dL Albumin 3.6 (3.4-5.0) g/dL Globulin 3.1 (2.6-4.0) g/dL Albumin/Globulin Ratio 1.2 (0.9-1.6) Lipase (73-393) U/L Urine Color Urine Appearance Urine pH (5.0-8.0) Ur Specific Sylva (1.001-1.035) Urine Protein (NEGATIVE) mg/dL Urine Glucose (UA) (NEGATIVE) mg/dL Urine Ketones (NEGATIVE) mg/dL Urine Occult Blood (NEGATIVE) Urine Nitrite (NEGATIVE) Urine Bilirubin (NEGATIVE) Urine Urobilinogen (<2.0) EU/dL Ur Leukocyte Esterase (NEGATIVE) Urine RBC (0-2/HPF) Urine WBC (0-5/HPF) Ur Epithelial Cells (NONE-FEW) Urine Bacteria (NEGATIVE) Urine Mucus (NONE-MOD) Urine Opiates Screen (NEGATIVE) Ur Oxycodone Screen (NEGATIVE) Urine Methadone Screen (NEGATIVE) Ur Barbiturates Screen (NEGATIVE) Ur Phencyclidine Scrn (NEGATIVE) Ur Amphetamine Screen (NEGATIVE) U Methamphetamines Scrn (NEGATIVE) U Benzodiazepines Scrn (NEGATIVE) U Cocaine Metab Screen (NEGATIVE) U Marijuana (THC) Screen (NEGATIVE) Ethyl Alcohol mg/dL SARS-CoV-2 RNA (HILDA) (NEGATIVE) Med Orders - Current: Current Medications Diazepam (Diazepam 5 Mg Tab) 5 mg PO Q8H [facility] Last Admin: 08/16/21 13:28 Dose: 5 mg Documented by: Folic Acid (Folic Acid 50 Mg/10 Ml Mdv) 1 mg SUBCUT DAILY [facility] Last Admin: 08/16/21 08:21 Dose: 1 mg Documented by: Pantoprazole Sodium 40 mg/ (Sodium Chloride) 20 mls @ 420 mls/hr IVPUSH Q24H [facility] Last Admin: 08/15/21 21:32 Dose: 420 mls/hr Documented by: Sodium Chloride (Normal Saline) 1,000 mls @ 100 mls/hr IV ASDIRECTED [facility] Last Admin: 08/16/21 13:36 Dose: 100 mls/hr Documented by: Lorazepam (Lorazepam 2 Mg/Ml Sdv) 0 mg IVPUSH Q4H PRN; Protocol PRN Reason: CIWAA Last Admin: 08/16/21 02:18 Dose: 2 mg Documented by: Ondansetron HCl (Ondansetron 4 Mg/2 Ml Sdv) 4 mg IVPUSH Q6H PRN PRN Reason: Nausea/Vomiting Last Admin: 08/16/21 08:20 Dose: 4 mg Documented by: Thiamine HCl (Thiamine 200 Mg/2 Ml Mdv) 100 mg IVPUSH DAILY [facility] Last Admin: 08/16/21 08:20 Dose: 100 mg Documented by: Discontinued Medications Sodium Chloride (Normal Saline) 1,000 mls @ 999 mls/hr IV STAT ONE Stop: 08/15/21 19:09 Last Admin: 08/15/21 18:19 Dose: 999 mls/hr Documented by: Sodium Chloride (Normal Saline) 1,000 mls @ 125 mls/hr IV STAT ONE Stop: 08/16/21 03:22 Last Admin: 08/15/21 19:49 Dose: 125 mls/hr Documented by: Lorazepam (Lorazepam 2 Mg/Ml Sdv) 1 mg IVPUSH ONETIME ONE Stop: 08/15/21 18:10 Last Admin: 08/15/21 18:19 Dose: 1 mg Documented by: Lorazepam (Lorazepam 2 Mg/Ml Sdv) 1 mg IVPUSH ONETIME ONE Stop: 08/15/21 19:24 Last Admin: 08/15/21 19:48 Dose: 1 mg Documented by: - Exam General: Alert, Oriented Neck: Supple Lungs: Clear to Auscultation, Normal Respiratory Effort Cardiovascular: Regular Rate, Regular Rhythm GI/Abdominal Exam: Normal Bowel Sounds, Soft, Non-Tender Extremities: Non-Tender, No Pedal Edema Skin: Warm, Dry, Intact Neurological: No New Focal Deficit Psy/Mental Status: Alert, Normal Mood - Patient Data Lab Results Last 24 hrs: Laboratory Results - last 24 hr 08/15/21 08/15/21 08/15/21 Range/Units 19:15 19:15 19:15 WBC 16.46 H (4.0-11.0) K/uL RBC 5.20 (4.50-5.90) M/uL Hgb 16.8 (13.0-17.0) g/dL Hct 46.0 (38.0-50.0) % MCV 88.5 (80.0-98.0) fL MCH 32.3 H (27.0-32.0) pg MCHC 36.5 (31.0-37.0) g/dL RDW Std Deviation 41.3 (28.0-62.0) fl RDW Coeff of Joseline 13 (11.0-15.0) % Plt Count 114 L (150-400) K/uL MPV 11.60 (7.40-12.00) fL Neut % (Auto) (48.0-80.0) % Lymph % (Auto) (16.0-40.0) % [facility] % (Auto) (0.0-15.0) % Eos % (Auto) (0.0-7.0) % Baso % (Auto) (0.0-1.5) % Neut # (Auto) (1.4-5.7) K/uL Lymph # (Auto) (0.6-2.4) K/uL [facility] # (Auto) (0.0-0.8) K/uL Eos # (Auto) (0.0-0.7) K/uL Baso # (Auto) (0.0-0.1) K/uL Add Manual Diff YES Neutrophils % (Manual) 87 H (48.0-80.0) % Lymphocytes % (Manual) 5 L (16.0-40.0) % Monocytes % (Manual) 8 (0.0-15.0) % Nucleated RBC % 0.0 /100WBC Absolute Seg Neuts 14.3 H (1.4-5.7) Lymphocytes # (Manual) 0.8 (0.6-2.4) Monocytes # (Manual) 1.3 H (0.0-0.8) Nucleated RBCs # 0 K/uL Sodium 137 (136-148) mmol/L Potassium 3.2 L (3.5-5.1) mmol/L Chloride 92 L (98-107) mmol/L Carbon Dioxide 27.3 (21.0-32.0) mmol/L BUN 9 (7.0-18.0) mg/dL Creatinine 1.4 H (0.8-1.3) mg/dL Est Cr Clr Drug Dosing 79.92 mL/min Estimated GFR (MDRD) 59.9 ml/min Glucose 200 H (74-106) mg/dL Hemoglobin A1c 5.8 (4.5 - 6.2) % Lactic Acid (0.4-2.0) mmol/L Calcium 9.5 (8.5-10.1) mg/dL Phosphorus (2.6-4.7) mg/dL Magnesium 1.6 L (1.8-2.4) mg/dL Total Bilirubin 2.3 H (0.2-1.0) mg/dL AST 92 H (15-37) IU/L ALT 55 (14-63) IU/L Alkaline Phosphatase 103 (46-116) U/L Creatine Kinase 167 (26-308) U/L Total Protein 8.0 (6.4-8.2) g/dL Albumin 4.3 (3.4-5.0) g/dL Globulin 3.7 (2.6-4.0) g/dL Albumin/Globulin Ratio 1.2 (0.9-1.6) Lipase 121 (73-393) U/L Urine Color Urine Appearance Urine pH (5.0-8.0) Ur Specific Sylva (1.001-1.035) Urine Protein (NEGATIVE) mg/dL Urine Glucose (UA) (NEGATIVE) mg/dL Urine Ketones (NEGATIVE) mg/dL Urine Occult Blood (NEGATIVE) Urine Nitrite (NEGATIVE) Urine Bilirubin (NEGATIVE) Urine Urobilinogen (<2.0) EU/dL Ur Leukocyte Esterase (NEGATIVE) Urine RBC (0-2/HPF) Urine WBC (0-5/HPF) Ur Epithelial Cells (NONE-FEW) Urine Bacteria (NEGATIVE) Urine Mucus (NONE-MOD) Urine Opiates Screen (NEGATIVE) Ur Oxycodone Screen (NEGATIVE) Urine Methadone Screen (NEGATIVE) Ur Barbiturates Screen (NEGATIVE) Ur Phencyclidine Scrn (NEGATIVE) Ur Amphetamine Screen (NEGATIVE) U Methamphetamines Scrn (NEGATIVE) U Benzodiazepines Scrn (NEGATIVE) U Cocaine Metab Screen (NEGATIVE) U Marijuana (THC) Screen (NEGATIVE) Ethyl Alcohol 3 mg/dL SARS-CoV-2 RNA (HILDA) (NEGATIVE) 08/15/21 08/15/21 08/15/21 Range/Units 19:30 20:30 20:30 WBC (4.0-11.0) K/uL RBC (4.50-5.90) M/uL Hgb (13.0-17.0) g/dL Hct (38.0-50.0) % MCV (80.0-98.0) fL MCH (27.0-32.0) pg MCHC (31.0-37.0) g/dL RDW Std Deviation (28.0-62.0) fl RDW Coeff of Joseline (11.0-15.0) % Plt Count (150-400) K/uL MPV (7.40-12.00) fL Neut % (Auto) (48.0-80.0) % Lymph % (Auto) (16.0-40.0) % [facility] % (Auto) (0.0-15.0) % Eos % (Auto) (0.0-7.0) % Baso % (Auto) (0.0-1.5) % Neut # (Auto) (1.4-5.7) K/uL Lymph # (Auto) (0.6-2.4) K/uL [facility] # (Auto) (0.0-0.8) K/uL Eos # (Auto) (0.0-0.7) K/uL Baso # (Auto) (0.0-0.1) K/uL Add Manual Diff Neutrophils % (Manual) (48.0-80.0) % Lymphocytes % (Manual) (16.0-40.0) % Monocytes % (Manual) (0.0-15.0) % Nucleated RBC % /100WBC Absolute Seg Neuts (1.4-5.7) Lymphocytes # (Manual) (0.6-2.4) Monocytes # (Manual) (0.0-0.8) Nucleated RBCs # K/uL Sodium (136-148) mmol/L Potassium (3.5-5.1) mmol/L Chloride (98-107) mmol/L Carbon Dioxide (21.0-32.0) mmol/L BUN (7.0-18.0) mg/dL Creatinine (0.8-1.3) mg/dL Est Cr Clr Drug Dosing mL/min Estimated GFR (MDRD) ml/min Glucose (74-106) mg/dL Hemoglobin A1c (4.5 - 6.2) % Lactic Acid (0.4-2.0) mmol/L Calcium (8.5-10.1) mg/dL Phosphorus (2.6-4.7) mg/dL Magnesium (1.8-2.4) mg/dL Total Bilirubin (0.2-1.0) mg/dL AST (15-37) IU/L ALT (14-63) IU/L Alkaline Phosphatase (46-116) U/L Creatine Kinase (26-308) U/L Total Protein (6.4-8.2) g/dL Albumin (3.4-5.0) g/dL Globulin (2.6-4.0) g/dL Albumin/Globulin Ratio (0.9-1.6) Lipase (73-393) U/L Urine Color ORANGE Urine Appearance HAZY Urine pH 6.5 (5.0-8.0) Ur Specific Sylva 1.025 (1.001-1.035) Urine Protein 100 H (NEGATIVE) mg/dL Urine Glucose (UA) NEGATIVE (NEGATIVE) mg/dL Urine Ketones 15 H (NEGATIVE) mg/dL Urine Occult Blood SMALL H (NEGATIVE) Urine Nitrite NEGATIVE (NEGATIVE) Urine Bilirubin NEGATIVE (NEGATIVE) Urine Urobilinogen 0.2 (<2.0) EU/dL Ur Leukocyte Esterase TRACE H (NEGATIVE) Urine RBC 0-2 (0-2/HPF) Urine WBC 0-2 (0-5/HPF) Ur Epithelial Cells RARE (NONE-FEW) Urine Bacteria FEW (NEGATIVE) Urine Mucus LIGHT (NONE-MOD) Urine Opiates Screen NEGATIVE (NEGATIVE) Ur Oxycodone Screen NEGATIVE (NEGATIVE) Urine Methadone Screen NEGATIVE (NEGATIVE) Ur Barbiturates Screen NEGATIVE (NEGATIVE) Ur Phencyclidine Scrn NEGATIVE (NEGATIVE) Ur Amphetamine Screen NEGATIVE (NEGATIVE) U Methamphetamines Scrn NEGATIVE (NEGATIVE) U Benzodiazepines Scrn NEGATIVE (NEGATIVE) U Cocaine Metab Screen NEGATIVE (NEGATIVE) U Marijuana (THC) Screen NEGATIVE (NEGATIVE) Ethyl Alcohol mg/dL SARS-CoV-2 RNA (HILDA) NEGATIVE (NEGATIVE) 08/15/21 08/16/21 08/16/21 Range/Units 21:20 02:45 06:07 WBC 8.35 (4.0-11.0) K/uL RBC 4.54 (4.50-5.90) M/uL Hgb 14.5 (13.0-17.0) g/dL Hct 40.7 (38.0-50.0) % MCV 89.6 (80.0-98.0) fL MCH 31.9 (27.0-32.0) pg MCHC 35.6 (31.0-37.0) g/dL RDW Std Deviation 42.8 (28.0-62.0) fl RDW Coeff of Joseline 13 (11.0-15.0) % Plt Count 100 L (150-400) K/uL MPV 11.40 (7.40-12.00) fL Neut % (Auto) 64.6 (48.0-80.0) % Lymph % (Auto) 20.6 (16.0-40.0) % [facility] % (Auto) 14.6 (0.0-15.0) % Eos % (Auto) 0.1 (0.0-7.0) % Baso % (Auto) 0.1 (0.0-1.5) % Neut # (Auto) 5.4 (1.4-5.7) K/uL Lymph # (Auto) 1.7 (0.6-2.4) K/uL [facility] # (Auto) 1.2 H (0.0-0.8) K/uL Eos # (Auto) 0.0 (0.0-0.7) K/uL Baso # (Auto) 0.0 (0.0-0.1) K/uL Add Manual Diff Neutrophils % (Manual) (48.0-80.0) % Lymphocytes % (Manual) (16.0-40.0) % Monocytes % (Manual) (0.0-15.0) % Nucleated RBC % 0.0 /100WBC Absolute Seg Neuts (1.4-5.7) Lymphocytes # (Manual) (0.6-2.4) Monocytes # (Manual) (0.0-0.8) Nucleated RBCs # 0 K/uL Sodium (136-148) mmol/L Potassium (3.5-5.1) mmol/L Chloride (98-107) mmol/L Carbon Dioxide (21.0-32.0) mmol/L BUN (7.0-18.0) mg/dL Creatinine (0.8-1.3) mg/dL Est Cr Clr Drug Dosing mL/min Estimated GFR (MDRD) ml/min Glucose (74-106) mg/dL Hemoglobin A1c (4.5 - 6.2) % Lactic Acid 5.6 H* 2.6 H* (0.4-2.0) mmol/L Calcium (8.5-10.1) mg/dL Phosphorus (2.6-4.7) mg/dL Magnesium (1.8-2.4) mg/dL Total Bilirubin (0.2-1.0) mg/dL AST (15-37) IU/L ALT (14-63) IU/L Alkaline Phosphatase (46-116) U/L Creatine Kinase (26-308) U/L Total Protein (6.4-8.2) g/dL Albumin (3.4-5.0) g/dL Globulin (2.6-4.0) g/dL Albumin/Globulin Ratio (0.9-1.6) Lipase (73-393) U/L Urine Color Urine Appearance Urine pH (5.0-8.0) Ur Specific Sylva (1.001-1.035) Urine Protein (NEGATIVE) mg/dL Urine Glucose (UA) (NEGATIVE) mg/dL Urine Ketones (NEGATIVE) mg/dL Urine Occult Blood (NEGATIVE) Urine Nitrite (NEGATIVE) Urine Bilirubin (NEGATIVE) Urine Urobilinogen (<2.0) EU/dL Ur Leukocyte Esterase (NEGATIVE) Urine RBC (0-2/HPF) Urine WBC (0-5/HPF) Ur Epithelial Cells (NONE-FEW) Urine Bacteria (NEGATIVE) Urine Mucus (NONE-MOD) Urine Opiates Screen (NEGATIVE) Ur Oxycodone Screen (NEGATIVE) Urine Methadone Screen (NEGATIVE) Ur Barbiturates Screen (NEGATIVE) Ur Phencyclidine Scrn (NEGATIVE) Ur Amphetamine Screen (NEGATIVE) U Methamphetamines Scrn (NEGATIVE) U Benzodiazepines Scrn (NEGATIVE) U Cocaine Metab Screen (NEGATIVE) U Marijuana (THC) Screen (NEGATIVE) Ethyl Alcohol mg/dL SARS-CoV-2 RNA (HILDA) (NEGATIVE) 08/16/21 08/16/21 Range/Units 06:07 06:07 WBC (4.0-11.0) K/uL RBC (4.50-5.90) M/uL Hgb (13.0-17.0) g/dL Hct (38.0-50.0) % MCV (80.0-98.0) fL MCH (27.0-32.0) pg MCHC (31.0-37.0) g/dL RDW Std Deviation (28.0-62.0) fl RDW Coeff of Joseline (11.0-15.0) % Plt Count (150-400) K/uL MPV (7.40-12.00) fL Neut % (Auto) (48.0-80.0) % Lymph % (Auto) (16.0-40.0) % [facility] % (Auto) (0.0-15.0) % Eos % (Auto) (0.0-7.0) % Baso % (Auto) (0.0-1.5) % Neut # (Auto) (1.4-5.7) K/uL Lymph # (Auto) (0.6-2.4) K/uL [facility] # (Auto) (0.0-0.8) K/uL Eos # (Auto) (0.0-0.7) K/uL Baso # (Auto) (0.0-0.1) K/uL Add Manual Diff Neutrophils % (Manual) (48.0-80.0) % Lymphocytes % (Manual) (16.0-40.0) % Monocytes % (Manual) (0.0-15.0) % Nucleated RBC % /100WBC Absolute Seg Neuts (1.4-5.7) Lymphocytes # (Manual) (0.6-2.4) Monocytes # (Manual) (0.0-0.8) Nucleated RBCs # K/uL Sodium 136 (136-148) mmol/L Potassium 3.4 L (3.5-5.1) mmol/L Chloride 96 L (98-107) mmol/L Carbon Dioxide 35.5 H (21.0-32.0) mmol/L BUN 10 (7.0-18.0) mg/dL Creatinine 1.0 (0.8-1.3) mg/dL Est Cr Clr Drug Dosing 111.89 mL/min Estimated GFR (MDRD) > 60.0 ml/min Glucose 102 (74-106) mg/dL Hemoglobin A1c (4.5 - 6.2) % Lactic Acid 1.9 (0.4-2.0) mmol/L Calcium 9.2 (8.5-10.1) mg/dL Phosphorus 3.0 (2.6-4.7) mg/dL Magnesium 2.0 (1.8-2.4) mg/dL Total Bilirubin 3.1 H (0.2-1.0) mg/dL AST 99 H (15-37) IU/L ALT 46 (14-63) IU/L Alkaline Phosphatase 84 (46-116) U/L Creatine Kinase (26-308) U/L Total Protein 6.7 (6.4-8.2) g/dL Albumin 3.6 (3.4-5.0) g/dL Globulin 3.1 (2.6-4.0) g/dL Albumin/Globulin Ratio 1.2 (0.9-1.6) Lipase (73-393) U/L Urine Color Urine Appearance Urine pH (5.0-8.0) Ur Specific Sylva (1.001-1.035) Urine Protein (NEGATIVE) mg/dL Urine Glucose (UA) (NEGATIVE) mg/dL Urine Ketones (NEGATIVE) mg/dL Urine Occult Blood (NEGATIVE) Urine Nitrite (NEGATIVE) Urine Bilirubin (NEGATIVE) Urine Urobilinogen (<2.0) EU/dL Ur Leukocyte Esterase (NEGATIVE) Urine RBC (0-2/HPF) Urine WBC (0-5/HPF) Ur Epithelial Cells (NONE-FEW) Urine Bacteria (NEGATIVE) Urine Mucus (NONE-MOD) Urine Opiates Screen (NEGATIVE) Ur Oxycodone Screen (NEGATIVE) Urine Methadone Screen (NEGATIVE) Ur Barbiturates Screen (NEGATIVE) Ur Phencyclidine Scrn (NEGATIVE) Ur Amphetamine Screen (NEGATIVE) U Methamphetamines Scrn (NEGATIVE) U Benzodiazepines Scrn (NEGATIVE) U Cocaine Metab Screen (NEGATIVE) U Marijuana (THC) Screen (NEGATIVE) Ethyl Alcohol mg/dL SARS-CoV-2 RNA (HILDA) (NEGATIVE) Result Diagrams: 08/16/21 06:07 08/16/21 06:07 Sepsis Event Note - Evaluation Sepsis Screening Result: No Definite Risk - Focused Exam Vital Signs: Vital Signs Temp Resp BP Pulse Ox 08/16/21 13:00 17 122/66 95 08/16/21 12:00 36.5 C 13 133/89 96 08/16/21 11:00 18 129/71 98 08/16/21 10:00 23 H 124/80 98 08/16/21 09:00 18 142/88 H 96 08/16/21 08:00 36.7 C 16 126/89 98 08/16/21 07:00 18 125/76 96 08/16/21 06:00 19 123/80 94 L 08/16/21 05:00 19 135/92 H 93 L 08/16/21 04:00 19 132/83 94 L 08/16/21 03:00 20 131/79 95 08/16/21 02:00 16 158/90 H 96 - Problem List & Annotations (1) Alcohol withdrawal SNOMED Code(s): 992192405 Code(s): F10.239 - ALCOHOL DEPENDENCE WITH WITHDRAWAL, UNSPECIFIED Status: Acute Current Visit: Yes (2) Seizure due to alcohol withdrawal SNOMED Code(s): 946850465 Code(s): F10.239 - ALCOHOL DEPENDENCE WITH WITHDRAWAL, UNSPECIFIED; R56.9 - UNSPECIFIED CONVULSIONS Status: Acute Current Visit: Yes Qualifiers: Complication of substance-induced condition: uncomplicated Qualified Code(s): F10.230 - Alcohol dependence with withdrawal, uncomplicated; R56.9 - Un specified convulsions - Problem List Review Problem List Initiated/Reviewed/Updated: Yes - My Orders Last 24 Hours: My Active Orders 08/15/21 21:09 LORazepam [Ativan] See Protocol IVPUSH Q4H PRN 08/15/21 21:11 Oxygen Therapy [RC] PRN Up ad Zuleyka [RC] ASDIRECTED VTE/DVT Education [RC] PER UNIT ROUTINE Vital Signs [RC] Q1H Sequential Compression Device [OM.PC] Per Unit Routine Resuscitation Status Routine 08/15/21 21:12 Antiembolic Devices [RC] PER UNIT ROUTINE 08/15/21 21:15 Folic Acid 1 mg SUBCUT DAILY Pantoprazole [ProTONIX IV] 40 mg Sodium Chloride 0.9% [Normal Saline] 20 ml IVPUSH Q24H Thiamine [Vitamin B-1] 100 mg IVPUSH DAILY diazePAM [Valium.] 5 mg PO Q8H 08/17/21 05:11 CBC WITH AUTO DIFF [HEME] AM COMPREHENSIVE METABOLIC PN,CMP [CHEM] AM MAGNESIUM [CHEM] AM PHOSPHORUS [CHEM] AM - Plan Plan:: 31 yo male admitted for alcohol withdrawal. We will continue Valium 5mg TID, CIWAA protocol with Ativan prn, thiamin and folic acid.
[2021-08-16] MEDS: Nicotine 14 MG/24 Hr Patch TRDERM SCH (16:29)
[2021-08-16] MEDS ORDERED: Pantoprazole 40 MG Vial ONE (19:48)
[2021-08-16] MEDS ORDERED: Pantoprazole 40 MG in Sodium Chloride 0.9% 10 ML IVPUSH SCH (21:36)
[2021-08-16] MEDS: Acetaminophen 325 MG Tab PO PRN (21:37)
[2021-08-16] MEDS: Pantoprazole 40 MG in Sodium Chloride 0.9% 10 ML IV SCH (21:54)
[2021-08-16] MEDS: Pantoprazole 40 MG in Sodium Chloride 0.9% 20 ML IVPUSH SCH (21:55)
[2021-08-17] MEDS: Diazepam 5 MG Tab PO SCH ×3 (05:24→20:16)
[2021-08-17] MEDS: Acetaminophen 325 MG Tab PO PRN (05:29)
[2021-08-17 06:35] LABS: BLOOD UREA NITROGEN,BUN 10 mg/dL (7.0-18.0); CARBON DIOXIDE,CO2 32.7 mmol/L (21.0-32.0); CHLORIDE,CL 98 mmol/L (98-107); GLUCOSE RANDOM 90 mg/dL (74-106); POTASSIUM,K 3.3 mmol/L (3.5-5.1); SODIUM,NA 138 mmol/L (136-148)
[2021-08-17] MEDS: LORazepam 2 MG/ML SDV IVPUSH PRN ×7 (07:31→22:48)
[2021-08-17] MEDS: Thiamine 200 MG/2 ML MDV IVPUSH SCH (08:42)
[2021-08-17] MEDS: Folic Acid 50 MG/10 ML MDV SUBCUT SCH (08:43)
[2021-08-17] MEDS: Potassium Chloride 20 MEQ Tab.ER PO SCH (08:44)
[2021-08-17] MEDS: Nicotine 14 MG/24 Hr Patch TRDERM SCH (08:45)
[2021-08-17] MEDS: Sodium Chloride 0.9% 1,000 ML IV SCH ×2 (09:05→18:38)
--- NOTE | 2021-08-17 09:32 | PN ---
THC Physician - Brief Progress [id number]/20/2021 08:42[facility] Joshi Lev gómez, ROB - TOR (RM) - TOR WILSONMAZIN HENRY RichardDate of Service 08/17/2021 08:42HPI/Events of Note eICU brief progress [id number] male currently admitted the ICU for alcohol intoxication/wi thdrawal and seizures. Per EMR review, no acute events overnight and patient continues to trigger CI WA protocol requiring 1 mg Ativan as needed. Patient also remains on scheduled Valium at this time.P atient seen on camera, does not appear to be agitated at this time and does appear comfortable, curre ntly eating breakfastAlcohol intoxication/withdrawalSeizuresRecommendations-No new recommendations at this time-Continue with scheduled Valium along with as needed Ativan-If patient has escalating benzo requirement we can initiate Precedex gtt. at that time-Agree with seizure precautions and Ativan as needed for seizures-Agree with thiamine and folic acid-Agree with hypokalemia mgmt (goal >4)Intervent ions Major-Delirium, psychosis, severe agitation - evaluation and management, Seizures - evaluation a nd management
[2021-08-17] MEDS ORDERED: Calcium Carbonate 500 MG Tab.Chew PO PRN (12:45)
[2021-08-17] MEDS ORDERED: Labetalol 100 MG/20 ML MDV IVPUSH ONE (12:46)
--- NOTE | 2021-08-17 13:58 | PCM.PN ---
- General Info Date of Service: 08/17/21 - Review of Systems General: Reports: Weakness, Fatigue. Denies: Fever Pulmonary: Denies: Shortness of Breath, Pleuritic Chest Pain, Cough Cardiovascular: Denies: Chest Pain, Edema Gastrointestinal: Denies: Nausea, Vomiting Neurological: Denies: Confusion, Dizziness Psychiatric: Denies: Confusion - Patient Data Vitals - Most Recent: Last Vital Signs Temp 98.4 F 08/17/21 13:00 Pulse 56 L 08/17/21 13:44 Resp 15 08/17/21 13:44 BP 154/96 H 08/17/21 13:44 Pulse Ox 96 08/17/21 13:44 Weight - Most Recent: 157 lb 3.033 oz I&O - Last 24 Hours: Intake & Output 08/16/21 08/17/21 08/17/21 22:59 06:59 14:59 Intake Total 2378 1791 Output Total 1100 2750 Balance 1278 -959 Lab Results Last 24 Hours: Laboratory Results - last 24 hr 08/17/21 08/17/21 Range/Units 05:30 05:30 WBC 6.26 (4.0-11.0) K/uL RBC 4.68 (4.50-5.90) M/uL Hgb 14.9 (13.0-17.0) g/dL Hct 42.3 (38.0-50.0) % MCV 90.4 (80.0-98.0) fL MCH 31.8 (27.0-32.0) pg MCHC 35.2 (31.0-37.0) g/dL RDW Std Deviation 42.6 (28.0-62.0) fl RDW Coeff of Joseline 13 (11.0-15.0) % Plt Count 84 L (150-400) K/uL MPV 11.70 (7.40-12.00) fL Neut % (Auto) 54.0 (48.0-80.0) % Lymph % (Auto) 34.0 (16.0-40.0) % Ward % (Auto) 10.1 (0.0-15.0) % Eos % (Auto) 1.4 (0.0-7.0) % Baso % (Auto) 0.5 (0.0-1.5) % Neut # (Auto) 3.4 (1.4-5.7) K/uL Lymph # (Auto) 2.1 (0.6-2.4) K/uL Ward # (Auto) 0.6 (0.0-0.8) K/uL Eos # (Auto) 0.1 (0.0-0.7) K/uL Baso # (Auto) 0.0 (0.0-0.1) K/uL Nucleated RBC % 0.0 /100WBC Nucleated RBCs # 0 K/uL Sodium 138 (136-148) mmol/L Potassium 3.3 L (3.5-5.1) mmol/L Chloride 98 (98-107) mmol/L Carbon Dioxide 32.7 H (21.0-32.0) mmol/L BUN 10 (7.0-18.0) mg/dL Creatinine 1.0 (0.8-1.3) mg/dL Est Cr Clr Drug Dosing 109.92 mL/min Estimated GFR (MDRD) > 60.0 ml/min Glucose 90 (74-106) mg/dL Calcium 9.0 (8.5-10.1) mg/dL Phosphorus 3.6 (2.6-4.7) mg/dL Magnesium 2.0 (1.8-2.4) mg/dL Total Bilirubin 3.0 H (0.2-1.0) mg/dL AST 197 H (15-37) IU/L ALT 75 H (14-63) IU/L Alkaline Phosphatase 85 (46-116) U/L Total Protein 7.3 (6.4-8.2) g/dL Albumin 3.6 (3.4-5.0) g/dL Globulin 3.7 (2.6-4.0) g/dL Albumin/Globulin Ratio 1.0 (0.9-1.6) Med Orders - Current: Current Medications Acetaminophen (Acetaminophen 325 Mg Tab) 650 mg PO Q6H PRN PRN Reason: Headache Last Admin: 08/17/21 05:29 Dose: 650 mg Documented by: Calcium Carbonate/Glycine (Calcium Carbonate 500 Mg Tab.Chew) 1,000 mg PO Q2HR PRN PRN Reason: Indigestion Last Admin: 08/17/21 13:06 Dose: 1,000 mg Documented by: Diazepam (Diazepam 5 Mg Tab) 5 mg PO Q8H [facility] Last Admin: 08/17/21 13:06 Dose: 5 mg Documented by: Folic Acid (Folic Acid 50 Mg/10 Ml Mdv) 1 mg SUBCUT DAILY [facility] Last Admin: 08/17/21 08:43 Dose: 1 mg Documented by: Sodium Chloride (Normal Saline) 1,000 mls @ 100 mls/hr IV ASDIRECTED [facility] Last Admin: 08/17/21 09:05 Dose: 100 mls/hr Documented by: Pantoprazole Sodium 40 mg/ (Sodium Chloride) 10 mls @ 200 mls/hr IV Q24H [facility] Last Admin: 08/16/21 21:54 Dose: 200 mls/hr Documented by: Lorazepam (Lorazepam 2 Mg/Ml Sdv) 0 mg IVPUSH Q4H PRN; Protocol PRN Reason: CIWAA Last Admin: 08/17/21 11:15 Dose: 2 mg Documented by: Nicotine (Nicotine 14 Mg/24 Hr Patch) 14 mg TRDERM DAILY [facility] Last Admin: 08/17/21 08:45 Dose: 14 mg Documented by: Ondansetron HCl (Ondansetron 4 Mg/2 Ml Sdv) 4 mg IVPUSH Q6H PRN PRN Reason: Nausea/Vomiting Last Admin: 08/16/21 15:01 Dose: 4 mg Documented by: Potassium Chloride (Potassium Chloride 20 Meq Tab.Er) 40 meq PO DAILY [facility] Last Admin: 08/17/21 08:44 Dose: 40 meq Documented by: Thiamine HCl (Thiamine 200 Mg/2 Ml Mdv) 100 mg IVPUSH DAILY [facility] Last Admin: 08/17/21 08:42 Dose: 100 mg Documented by: Discontinued Medications Sodium Chloride (Normal Saline) 1,000 mls @ 999 mls/hr IV STAT ONE Stop: 08/15/21 19:09 Last Admin: 08/15/21 18:19 Dose: 999 mls/hr Documented by: Sodium Chloride (Normal Saline) 1,000 mls @ 125 mls/hr IV STAT ONE Stop: 08/16/21 03:22 Last Admin: 08/15/21 19:49 Dose: 125 mls/hr Documented by: Pantoprazole Sodium 40 mg/ (Sodium Chloride) 20 mls @ 420 mls/hr IVPUSH Q24H [facility] Last Admin: 09/19/21 21:55 Dose: Not Given Documented by: Labetalol HCl (Labetalol 100 Mg/20 Ml Mdv) 20 mg IVPUSH ONETIME ONE Stop: 08/17/21 12:47 Last Admin: 08/17/21 13:06 Dose: 20 mg Documented by: Lorazepam (Lorazepam 2 Mg/Ml Sdv) 1 mg IVPUSH ONETIME ONE Stop: 08/15/21 18:10 Last Admin: 08/15/21 18:19 Dose: 1 mg Documented by: Lorazepam (Lorazepam 2 Mg/Ml Sdv) 1 mg IVPUSH ONETIME ONE Stop: 08/15/21 19:24 Last Admin: 08/15/21 19:48 Dose: 1 mg Documented by: Pantoprazole Sodium (Pantoprazole 40 Mg Vial) Confirm Administered Dose 40 mg .ROUTE .STK-MED ONE Stop: 08/16/21 19:49 Last Admin: 08/16/21 20:50 Dose: Not Given Documented by: - Exam General: Alert Lungs: Clear to Auscultation, Normal Respiratory Effort Cardiovascular: Regular Rate, Regular Rhythm GI/Abdominal Exam: Soft, Non-Tender Neurological: Normal Speech Psy/Mental Status: Alert. No: Anxious - Patient Data Lab Results Last 24 hrs: Laboratory Results - last 24 hr 08/17/21 08/17/21 Range/Units 05:30 05:30 WBC 6.26 (4.0-11.0) K/uL RBC 4.68 (4.50-5.90) M/uL Hgb 14.9 (13.0-17.0) g/dL Hct 42.3 (38.0-50.0) % MCV 90.4 (80.0-98.0) fL MCH 31.8 (27.0-32.0) pg MCHC 35.2 (31.0-37.0) g/dL RDW Std Deviation 42.6 (28.0-62.0) fl RDW Coeff of Joseline 13 (11.0-15.0) % Plt Count 84 L (150-400) K/uL MPV 11.70 (7.40-12.00) fL Neut % (Auto) 54.0 (48.0-80.0) % Lymph % (Auto) 34.0 (16.0-40.0) % Ward % (Auto) 10.1 (0.0-15.0) % Eos % (Auto) 1.4 (0.0-7.0) % Baso % (Auto) 0.5 (0.0-1.5) % Neut # (Auto) 3.4 (1.4-5.7) K/uL Lymph # (Auto) 2.1 (0.6-2.4) K/uL Ward # (Auto) 0.6 (0.0-0.8) K/uL Eos # (Auto) 0.1 (0.0-0.7) K/uL Baso # (Auto) 0.0 (0.0-0.1) K/uL Nucleated RBC % 0.0 /100WBC Nucleated RBCs # 0 K/uL Sodium 138 (136-148) mmol/L Potassium 3.3 L (3.5-5.1) mmol/L Chloride 98 (98-107) mmol/L Carbon Dioxide 32.7 H (21.0-32.0) mmol/L BUN 10 (7.0-18.0) mg/dL Creatinine 1.0 (0.8-1.3) mg/dL Est Cr Clr Drug Dosing 109.92 mL/min Estimated GFR (MDRD) > 60.0 ml/min Glucose 90 (74-106) mg/dL Calcium 9.0 (8.5-10.1) mg/dL Phosphorus 3.6 (2.6-4.7) mg/dL Magnesium 2.0 (1.8-2.4) mg/dL Total Bilirubin 3.0 H (0.2-1.0) mg/dL AST 197 H (15-37) IU/L ALT 75 H (14-63) IU/L Alkaline Phosphatase 85 (46-116) U/L Total Protein 7.3 (6.4-8.2) g/dL Albumin 3.6 (3.4-5.0) g/dL Globulin 3.7 (2.6-4.0) g/dL Albumin/Globulin Ratio 1.0 (0.9-1.6) Result Diagrams: 08/17/21 05:30 08/17/21 05:30 Sepsis Event Note - Evaluation Sepsis Screening Result: No Definite Risk - Focused Exam Vital Signs: Vital Signs Temp Pulse Resp BP Pulse Ox 08/17/21 13:44 56 L 15 154/96 H 96 08/17/21 13:00 98.4 F 16 161/104 H 97 08/17/21 12:00 98.4 F 16 161/104 H 97 08/17/21 11:00 98.4 F 21 H 159/103 H 95 08/17/21 10:00 96.9 F 12 131/73 98 08/17/21 09:00 96.9 F 10 L 146/108 H 99 08/17/21 08:00 96.9 F 17 130/78 95 08/17/21 07:00 96.9 F 16 139/76 97 08/17/21 05:00 15 129/87 95 08/17/21 04:00 17 146/95 H 95 08/17/21 03:00 17 145/96 H 95 08/17/21 02:00 18 132/90 94 L - Problem List & Annotations (1) Alcohol withdrawal SNOMED Code(s): 892136279 Code(s): F10.239 - ALCOHOL DEPENDENCE WITH WITHDRAWAL, UNSPECIFIED Status: Acute Current Visit: Yes (2) Seizure due to alcohol withdrawal SNOMED Code(s): 870768051 Code(s): F10.239 - ALCOHOL DEPENDENCE WITH WITHDRAWAL, UNSPECIFIED; R56.9 - UNSPECIFIED CONVULSIONS Status: Acute Current Visit: Yes Qualifiers: Complication of substance-induced condition: uncomplicated Qualified Code(s): F10.230 - Alcohol dependence with withdrawal, uncomplicated; R56.9 - Unspecified convulsions (3) Gastritis SNOMED Code(s): 8960942 Code(s): K29.70 - GASTRITIS, UNSPECIFIED, WITHOUT BLEEDING Status: Acute Current Visit: No Qualifiers: Gastritis type: unspecified gastritis Chronicity: acute Gastritis bleeding: with bleeding Qualified Code(s): K29.01 - Acute gastritis with bleeding (4) Alcohol abuse SNOMED Code(s): 69378947 Code(s): F10.10 - ALCOHOL ABUSE, UNCOMPLICATED Status: Chronic Current Visit: No (5) Anxiety SNOMED Code(s): 36000833 Code(s): F41.9 - ANXIETY DISORDER, UNSPECIFIED Status: Chronic Current Visit: No - Problem List Review Problem List Initiated/Reviewed/Updated: Yes - My Orders Last 24 Hours: My Active Orders 08/17/21 09:00 Potassium Chloride [Klor-Con M20] 40 meq PO DAILY 08/18/21 05:11 CBC WITH AUTO DIFF [HEME] AM COMPREHENSIVE METABOLIC PN,CMP [CHEM] AM MAGNESIUM [CHEM] AM - Plan Plan:: Alcohol withdrawal Valium 5mg TID, CIWAA protocol with Ativan prn thiamine, folic acid Zofran, Protonix, Tums We will monitor patient in the ICU, if stable will de-escalate to Med/Surg status.
[2021-08-17] MEDS: Pantoprazole 40 MG in Sodium Chloride 0.9% 10 ML IV SCH (21:09)
[2021-08-18] MEDS: LORazepam 2 MG/ML SDV IVPUSH PRN ×2 (01:37→04:30)
[2021-08-18] MEDS: Sodium Chloride 0.9% 1,000 ML IV SCH ×2 (04:15→14:16)
[2021-08-18] MEDS: Diazepam 5 MG Tab PO SCH ×3 (04:17→21:17)
[2021-08-18 06:24] LABS: BLOOD UREA NITROGEN,BUN 7 mg/dL (7.0-18.0); CARBON DIOXIDE,CO2 31.2 mmol/L (21.0-32.0); CHLORIDE,CL 101 mmol/L (98-107); GLUCOSE RANDOM 101 mg/dL (74-106); POTASSIUM,K 3.2 mmol/L (3.5-5.1); SODIUM,NA 139 mmol/L (136-148)
[2021-08-18] MEDS ORDERED: Potassium Chloride 20 MEQ Tab.ER PO ONE ×2 (07:14→13:00)
[2021-08-18] MEDS: Folic Acid 50 MG/10 ML MDV SUBCUT SCH (08:23)
[2021-08-18] MEDS: Potassium Chloride 20 MEQ Tab.ER PO SCH (08:23)
[2021-08-18] MEDS: Thiamine 200 MG/2 ML MDV IVPUSH SCH (08:29)
[2021-08-18] MEDS: Nicotine 14 MG/24 Hr Patch TRDERM SCH (08:52)
--- NOTE | 2021-08-18 09:18 | PCM.PN ---
- General Info Date of Service: 08/18/21 Subjective Update: Patient states feeling tired, fatigue. Patient states slept overnight no concerns. Patient states slight anxiety this morning on questioning. Patient denies chest pain, shortness of breath, fever, chills, nausea, vomiting, dental pain. - Review of Systems General: Reports: Fatigue. Denies: Fever, Chills Cardiovascular: Denies: Chest Pain, Orthopnea, Edema Gastrointestinal: Denies: Abdominal Pain, Nausea, Vomiting Skin: Denies: Cyanosis Neurological: Denies: Confusion, Dizziness, Headache Psychiatric: Denies: Confusion - Patient Data Vitals - Most Recent: Last Vital Signs Temp 97.7 F 08/18/21 08:00 Pulse 56 L 08/17/21 13:44 Resp 18 08/18/21 08:00 BP 135/84 08/18/21 08:00 Pulse Ox 93 L 08/18/21 08:00 Weight - Most Recent: 143 lb 1.28 oz I&O - Last 24 Hours: Intake & Output 08/17/21 08/18/21 08/18/21 22:59 06:59 14:59 Intake Total 3200 3368 Output Total 2700 3450 Balance 500 -82 Lab Results Last 24 Hours: Laboratory Results - last 24 hr 08/18/21 08/18/21 Range/Units 05:26 05:26 WBC 5.88 (4.0-11.0) K/uL RBC 4.47 L (4.50-5.90) M/uL Hgb 14.3 (13.0-17.0) g/dL Hct 40.5 (38.0-50.0) % MCV 90.6 (80.0-98.0) fL MCH 32.0 (27.0-32.0) pg MCHC 35.3 (31.0-37.0) g/dL RDW Std Deviation 42.9 (28.0-62.0) fl RDW Coeff of Joseline 13 (11.0-15.0) % Plt Count 74 L (150-400) K/uL MPV 11.50 (7.40-12.00) fL Neut % (Auto) 51.0 (48.0-80.0) % Lymph % (Auto) 30.1 (16.0-40.0) % Ness % (Auto) 14.1 (0.0-15.0) % Eos % (Auto) 4.3 (0.0-7.0) % Baso % (Auto) 0.5 (0.0-1.5) % Neut # (Auto) 3.0 (1.4-5.7) K/uL Lymph # (Auto) 1.8 (0.6-2.4) K/uL Ness # (Auto) 0.8 (0.0-0.8) K/uL Eos # (Auto) 0.3 (0.0-0.7) K/uL Baso # (Auto) 0.0 (0.0-0.1) K/uL Nucleated RBC % 0.0 /100WBC Nucleated RBCs # 0 K/uL Sodium 139 (136-148) mmol/L Potassium 3.2 L (3.5-5.1) mmol/L Chloride 101 (98-107) mmol/L Carbon Dioxide 31.2 (21.0-32.0) mmol/L BUN 7 (7.0-18.0) mg/dL Creatinine 1.0 (0.8-1.3) mg/dL Est Cr Clr Drug Dosing 109.92 mL/min Estimated GFR (MDRD) > 60.0 ml/min Glucose 101 (74-106) mg/dL Calcium 8.8 (8.5-10.1) mg/dL Magnesium 1.8 (1.8-2.4) mg/dL Total Bilirubin 2.0 H (0.2-1.0) mg/dL AST 188 H (15-37) IU/L ALT 87 H (14-63) IU/L Alkaline Phosphatase 79 (46-116) U/L Total Protein 6.8 (6.4-8.2) g/dL Albumin 3.4 (3.4-5.0) g/dL Globulin 3.4 (2.6-4.0) g/dL Albumin/Globulin Ratio 1.0 (0.9-1.6) Tavon Results Last 24 Hours: Microbiology 08/15/21 20:30 Urine Culture - Final Urine Med Orders - Current: Current Medications Acetaminophen (Acetaminophen 325 Mg Tab) 650 mg PO Q6H PRN PRN Reason: Headache Last Admin: 08/17/21 05:29 Dose: 650 mg Documented by: Calcium Carbonate/Glycine (Calcium Carbonate 500 Mg Tab.Chew) 1,000 mg PO Q2HR PRN PRN Reason: Indigestion Last Admin: 08/17/21 13:06 Dose: 1,000 mg Documented by: Diazepam (Diazepam 5 Mg Tab) 5 mg PO Q8H [facility] Last Admin: 08/18/21 04:17 Dose: 5 mg Documented by: Folic Acid (Folic Acid 50 Mg/10 Ml Mdv) 1 mg SUBCUT DAILY [facility] Last Admin: 08/18/21 08:23 Dose: 1 mg Documented by: Sodium Chloride (Normal Saline) 1,000 mls @ 100 mls/hr IV ASDIRECTED [facility] Last Admin: 08/18/21 04:15 Dose: 100 mls/hr Documented by: Pantoprazole Sodium 40 mg/ (Sodium Chloride) 10 mls @ 200 mls/hr IV Q24H [facility] Last Admin: 08/17/21 21:09 Dose: 200 mls/hr Documented by: Lorazepam (Lorazepam 2 Mg/Ml Sdv) 0 mg IVPUSH Q4H PRN; Protocol PRN Reason: CIWAA Last Admin: 08/18/21 04:30 Dose: 2 mg Documented by: Nicotine (Nicotine 14 Mg/24 Hr Patch) 14 mg TRDERM DAILY [facility] Last Admin: 08/18/21 08:52 Dose: 14 mg Documented by: Ondansetron HCl (Ondansetron 4 Mg/2 Ml Sdv) 4 mg IVPUSH Q6H PRN PRN Reason: Nausea/Vomiting Last Admin: 08/16/21 15:01 Dose: 4 mg Documented by: Potassium Chloride (Potassium Chloride 20 Meq Tab.Er) 40 meq PO DAILY [facility] Last Admin: 08/18/21 08:23 Dose: 40 meq Documented by: Potassium Chloride (Potassium Chloride 20 Meq Tab.Er) 40 meq PO ONETIME ONE Stop: 08/18/21 13:01 Thiamine HCl (Thiamine 200 Mg/2 Ml Mdv) 100 mg IVPUSH DAILY [facility] Last Admin: 08/18/21 08:29 Dose: 100 mg Documented by: Discontinued Medications Sodium Chloride (Normal Saline) 1,000 mls @ 999 mls/hr IV STAT ONE Stop: 08/15/21 19:09 Last Admin: 08/15/21 18:19 Dose: 999 mls/hr Documented by: Sodium Chloride (Normal Saline) 1,000 mls @ 125 mls/hr IV STAT ONE Stop: 08/16/21 03:22 Last Admin: 08/15/21 19:49 Dose: 125 mls/hr Documented by: Pantoprazole Sodium 40 mg/ (Sodium Chloride) 20 mls @ 420 mls/hr IVPUSH Q24H [facility] Last Admin: 08/16/21 21:55 Dose: Not Given Documented by: Labetalol HCl (Labetalol 100 Mg/20 Ml Mdv) 20 mg IVPUSH ONETIME ONE Stop: 08/17/21 12:47 Last Admin: 08/17/21 13:06 Dose: 20 mg Documented by: Lorazepam (Lorazepam 2 Mg/Ml Sdv) 1 mg IVPUSH ONETIME ONE Stop: 08/15/21 18:10 Last Admin: 08/15/21 18:19 Dose: 1 mg Documented by: Lorazepam (Lorazepam 2 Mg/Ml Sdv) 1 mg IVPUSH ONETIME ONE Stop: 08/15/21 19:24 Last Admin: 08/15/21 19:48 Dose: 1 mg Documented by: Pantoprazole Sodium (Pantoprazole 40 Mg Vial) Confirm Administered Dose 40 mg .ROUTE .STK-MED ONE Stop: 08/16/21 19:49 Last Admin: 08/16/21 20:50 Dose: Not Given Documented by: Potassium Chloride (Potassium Chloride 20 Meq Tab.Er) 40 meq PO ONETIME ONE Stop: 08/18/21 07:15 Last Admin: 08/18/21 08:28 Dose: Not Given Documented by: - Exam General: Alert Lungs: Clear to Auscultation, Normal Respiratory Effort Cardiovascular: Regular Rate, Regular Rhythm Extremities: No Pedal Edema Psy/Mental Status: Alert - Patient Data Lab Results Last 24 hrs: Laboratory Results - last 24 hr 08/18/21 08/18/21 Range/Units 05:26 05:26 WBC 5.88 (4.0-11.0) K/uL RBC 4.47 L (4.50-5.90) M/uL Hgb 14.3 (13.0-17.0) g/dL Hct 40.5 (38.0-50.0) % MCV 90.6 (80.0-98.0) fL MCH 32.0 (27.0-32.0) pg MCHC 35.3 (31.0-37.0) g/dL RDW Std Deviation 42.9 (28.0-62.0) fl RDW Coeff of Joseline 13 (11.0-15.0) % Plt Count 74 L (150-400) K/uL MPV 11.50 (7.40-12.00) fL Neut % (Auto) 51.0 (48.0-80.0) % Lymph % (Auto) 30.1 (16.0-40.0) % Ness % (Auto) 14.1 (0.0-15.0) % Eos % (Auto) 4.3 (0.0-7.0) % Baso % (Auto) 0.5 (0.0-1.5) % Neut # (Auto) 3.0 (1.4-5.7) K/uL Lymph # (Auto) 1.8 (0.6-2.4) K/uL Ness # (Auto) 0.8 (0.0-0.8) K/uL Eos # (Auto) 0.3 (0.0-0.7) K/uL Baso # (Auto) 0.0 (0.0-0.1) K/uL Nucleated RBC % 0.0 /100WBC Nucleated RBCs # 0 K/uL Sodium 139 (136-148) mmol/L Potassium 3.2 L (3.5-5.1) mmol/L Chloride 101 (98-107) mmol/L Carbon Dioxide 31.2 (21.0-32.0) mmol/L BUN 7 (7.0-18.0) mg/dL Creatinine 1.0 (0.8-1.3) mg/dL Est Cr Clr Drug Dosing 109.92 mL/min Estimated GFR (MDRD) > 60.0 ml/min Glucose 101 (74-106) mg/dL Calcium 8.8 (8.5-10.1) mg/dL Magnesium 1.8 (1.8-2.4) mg/dL Total Bilirubin 2.0 H (0.2-1.0) mg/dL AST 188 H (15-37) IU/L ALT 87 H (14-63) IU/L Alkaline Phosphatase 79 (46-116) U/L Total Protein 6.8 (6.4-8.2) g/dL Albumin 3.4 (3.4-5.0) g/dL Globulin 3.4 (2.6-4.0) g/dL Albumin/Globulin Ratio 1.0 (0.9-1.6) Result Diagrams: 08/18/21 05:26 08/18/21 05:26 Tavon Results Last 24 hrs: Microbiology 08/15/21 20:30 Urine Culture - Final Urine Sepsis Event Note - Evaluation Sepsis Screening Result: No Definite Risk - Focused Exam Vital Signs: Vital Signs Temp Resp BP Pulse Ox 08/18/21 08:00 97.7 F 18 135/84 93 L 08/18/21 07:00 17 129/85 91 L 08/18/21 06:00 17 124/81 96 08/18/21 05:00 19 125/86 93 L 08/18/21 04:00 18 143/89 H 98 08/18/21 03:00 97.8 F 19 140/100 H 92 L 08/18/21 02:00 15 149/103 H 93 L 08/18/21 01:00 22 H 143/100 H 93 L 08/18/21 00:00 19 160/110 H 97 08/17/21 23:00 15 143/98 H 94 L 08/17/21 22:00 25 H 90 L - Problem List & Annotations (1) Alcohol withdrawal SNOMED Code(s): 813187346 Code(s): F10.239 - ALCOHOL DEPENDENCE WITH WITHDRAWAL, UNSPECIFIED Status: Acute Current Visit: Yes (2) Seizure due to alcohol withdrawal SNOMED Code(s): 966623982 Code(s): F10.239 - ALCOHOL DEPENDENCE WITH WITHDRAWAL, UNSPECIFIED; R56.9 - UNSPECIFIED CONVULSIONS Status: Acute Current Visit: Yes Qualifiers: Complication of substance-induced condition: uncomplicated Qualified Code(s): F10.230 - Alcohol dependence with withdrawal, uncomplicated; R56.9 - Unspecified convulsions (3) Gastritis SNOMED Code(s): 5438822 Code(s): K29.70 - GASTRITIS, UNSPECIFIED, WITHOUT BLEEDING Status: Acute Current Visit: No Qualifiers: Gastritis type: unspecified gastritis Chronicity: acute Gastritis bleeding: with bleeding Qualified Code(s): K29.01 - Acute gastritis with bleeding (4) Alcohol abuse SNOMED Code(s): 67423451 Code(s): F10.10 - ALCOHOL ABUSE, UNCOMPLICATED Status: Chronic Current Visit: No (5) Anxiety SNOMED Code(s): 27470244 Code(s): F41.9 - ANXIETY DISORDER, UNSPECIFIED Status: Chronic Current Visit: No - My Orders Last 24 Hours: My Active Orders 08/17/21 09:00 Potassium Chloride [Klor-Con M20] 40 meq PO DAILY 08/18/21 13:00 Potassium Chloride [Klor-Con M20] 40 meq PO ONETIME ONE - Plan Plan:: Alcohol withdrawal Valium 5mg TID, CIWAA protocol with Ativan prn thiamine, folic acid Zofran, Protonix, Tums We will monitor patient in the ICU, if stable will de-escalate to Med/Surg status.
--- NOTE | 2021-08-18 14:37 | PCM.PN ---
<Matt Doyle - Last Filed: 08/18/21 14:38> - General Info Date of Service: 08/18/21 Subjective Update: Patient states fatigue, sleepiness as he is not "a morning person". Patient denies fever, chills, nausea, vomiting abdominal pain. Patient states he is tolerating diet. - Review of Systems General: Denies: Fever, Chills Pulmonary: Denies: Shortness of Breath Cardiovascular: Denies: Chest Pain, Edema Gastrointestinal: Denies: Abdominal Pain, Nausea, Vomiting Neurological: Denies: Confusion, Dizziness, Headache Psychiatric: Denies: Confusion - Patient Data Vitals - Most Recent: Last Vital Signs Temp 97.7 F 08/18/21 08:00 Pulse 56 L 08/17/21 13:44 Resp 17 08/18/21 10:00 BP 135/94 H 08/18/21 10:00 Pulse Ox 93 L 08/18/21 10:00 Weight - Most Recent: 64.9 kg I&O - Last 24 Hours: Intake & Output 08/17/21 08/18/21 08/18/21 22:59 06:59 14:59 Intake Total 3200 3368 Output Total 2700 3450 Balance 500 -82 Lab Results Last 24 Hours: Laboratory Results - last 24 hr 08/18/21 08/18/21 Range/Units 05:26 05:26 WBC 5.88 (4.0-11.0) K/uL RBC 4.47 L (4.50-5.90) M/uL Hgb 14.3 (13.0-17.0) g/dL Hct 40.5 (38.0-50.0) % MCV 90.6 (80.0-98.0) fL MCH 32.0 (27.0-32.0) pg MCHC 35.3 (31.0-37.0) g/dL RDW Std Deviation 42.9 (28.0-62.0) fl RDW Coeff of Joseline 13 (11.0-15.0) % Plt Count 74 L (150-400) K/uL MPV 11.50 (7.40-12.00) fL Neut % (Auto) 51.0 (48.0-80.0) % Lymph % (Auto) 30.1 (16.0-40.0) % [place] % (Auto) 14.1 (0.0-15.0) % Eos % (Auto) 4.3 (0.0-7.0) % Baso % (Auto) 0.5 (0.0-1.5) % Neut # (Auto) 3.0 (1.4-5.7) K/uL Lymph # (Auto) 1.8 (0.6-2.4) K/uL [place] # (Auto) 0.8 (0.0-0.8) K/uL Eos # (Auto) 0.3 (0.0-0.7) K/uL Baso # (Auto) 0.0 (0.0-0.1) K/uL Nucleated RBC % 0.0 /100WBC Nucleated RBCs # 0 K/uL Sodium 139 (136-148) mmol/L Potassium 3.2 L (3.5-5.1) mmol/L Chloride 101 (98-107) mmol/L Carbon Dioxide 31.2 (21.0-32.0) mmol/L BUN 7 (7.0-18.0) mg/dL Creatinine 1.0 (0.8-1.3) mg/dL Est Cr Clr Drug Dosing 109.92 mL/min Estimated GFR (MDRD) > 60.0 ml/min Glucose 101 (74-106) mg/dL Calcium 8.8 (8.5-10.1) mg/dL Magnesium 1.8 (1.8-2.4) mg/dL Total Bilirubin 2.0 H (0.2-1.0) mg/dL AST 188 H (15-37) IU/L ALT 87 H (14-63) IU/L Alkaline Phosphatase 79 (46-116) U/L Total Protein 6.8 (6.4-8.2) g/dL Albumin 3.4 (3.4-5.0) g/dL Globulin 3.4 (2.6-4.0) g/dL Albumin/Globulin Ratio 1.0 (0.9-1.6) Tavon Results Last 24 Hours: Microbiology 08/15/21 20:30 Urine Culture - Final Urine Med Orders - Current: Current Medications Acetaminophen (Acetaminophen 325 Mg Tab) 650 mg PO Q6H PRN PRN Reason: Headache Last Admin: 08/17/21 05:29 Dose: 650 mg Documented by: Calcium Carbonate/Glycine (Calcium Carbonate 500 Mg Tab.Chew) 1,000 mg PO Q2HR PRN PRN Reason: Indigestion Last Admin: 08/17/21 13:06 Dose: 1,000 mg Documented by: Diazepam (Diazepam 5 Mg Tab) 5 mg PO Q8H [facility] Last Admin: 08/18/21 13:53 Dose: 5 mg Documented by: Folic Acid (Folic Acid 50 Mg/10 Ml Mdv) 1 mg SUBCUT DAILY [facility] Last Admin: 08/18/21 08:23 Dose: 1 mg Documented by: Sodium Chloride (Normal Saline) 1,000 mls @ 100 mls/hr IV ASDIRECTED [facility] Last Admin: 08/18/21 14:16 Dose: 100 mls/hr Documented by: Pantoprazole Sodium 40 mg/ (Sodium Chloride) 10 mls @ 200 mls/hr IV Q24H [facility] Last Admin: 08/17/21 21:09 Dose: 200 mls/hr Documented by: Lorazepam (Lorazepam 2 Mg/Ml Sdv) 0 mg IVPUSH Q4H PRN; Protocol PRN Reason: CIWAA Last Admin: 08/18/21 04:30 Dose: 2 mg Documented by: Nicotine (Nicotine 14 Mg/24 Hr Patch) 14 mg TRDERM DAILY [facility] Last Admin: 08/18/21 08:52 Dose: 14 mg Documented by: Ondansetron HCl (Ondansetron 4 Mg/2 Ml Sdv) 4 mg IVPUSH Q6H PRN PRN Reason: Nausea/Vomiting Last Admin: 08/16/21 15:01 Dose: 4 mg Documented by: Potassium Chloride (Potassium Chloride 20 Meq Tab.Er) 40 meq PO DAILY [facility] Last Admin: 08/18/21 08:23 Dose: 40 meq Documented by: Thiamine HCl (Thiamine 200 Mg/2 Ml Mdv) 100 mg IVPUSH DAILY [facility] Last Admin: 08/18/21 08:29 Dose: 100 mg Documented by: Discontinued Medications Sodium Chloride (Normal Saline) 1,000 mls @ 999 mls/hr IV STAT ONE Stop: 08/15/21 19:09 Last Admin: 08/15/21 18:19 Dose: 999 mls/hr Documented by: Sodium Chloride (Normal Saline) 1,000 mls @ 125 mls/hr IV STAT ONE Stop: 08/16/21 03:22 Last Admin: 08/15/21 19:49 Dose: 125 mls/hr Documented by: Pantoprazole Sodium 40 mg/ (Sodium Chloride) 20 mls @ 420 mls/hr IVPUSH Q24H [facility] Last Admin: 08/16/21 21:55 Dose: Not Given Documented by: Labetalol HCl (Labetalol 100 Mg/20 Ml Mdv) 20 mg IVPUSH ONETIME ONE Stop: 08/17/21 12:47 Last Admin: 08/17/21 13:06 Dose: 20 mg Documented by: Lorazepam (Lorazepam 2 Mg/Ml Sdv) 1 mg IVPUSH ONETIME ONE Stop: 08/15/21 18:10 Last Admin: 08/15/21 18:19 Dose: 1 mg Documented by: Lorazepam (Lorazepam 2 Mg/Ml Sdv) 1 mg IVPUSH ONETIME ONE Stop: 08/15/21 19:24 Last Admin: 08/15/21 19:48 Dose: 1 mg Documented by: Pantoprazole Sodium (Pantoprazole 40 Mg Vial) Confirm Administered Dose 40 mg .ROUTE .STK-MED ONE Stop: 08/16/21 19:49 Last Admin: 08/16/21 20:50 Dose: Not Given Documented by: Potassium Chloride (Potassium Chloride 20 Meq Tab.Er) 40 meq PO ONETIME ONE Stop: 08/18/21 07:15 Last Admin: 08/18/21 08:28 Dose: Not Given Documented by: Potassium Chloride (Potassium Chloride 20 Meq Tab.Er) 40 meq PO ONETIME ONE Stop: 08/18/21 13:01 Last Admin: 08/18/21 13:53 Dose: 40 meq Documented by: - Exam General: Alert, Oriented Lungs: Clear to Auscultation, Normal Respiratory Effort Cardiovascular: Regular Rate, Regular Rhythm Extremities: No Pedal Edema Psy/Mental Status: Alert. No: Anxious - Patient Data Lab Results Last 24 hrs: Laboratory Results - last 24 hr 08/18/21 08/18/21 Range/Units 05:26 05:26 WBC 5.88 (4.0-11.0) K/uL RBC 4.47 L (4.50-5.90) M/uL Hgb 14.3 (13.0-17.0) g/dL Hct 40.5 (38.0-50.0) % MCV 90.6 (80.0-98.0) fL MCH 32.0 (27.0-32.0) pg MCHC 35.3 (31.0-37.0) g/dL RDW Std Deviation 42.9 (28.0-62.0) fl RDW Coeff of Joseline 13 (11.0-15.0) % Plt Count 74 L (150-400) K/uL MPV 11.50 (7.40-12.00) fL Neut % (Auto) 51.0 (48.0-80.0) % Lymph % (Auto) 30.1 (16.0-40.0) % [place] % (Auto) 14.1 (0.0-15.0) % Eos % (Auto) 4.3 (0.0-7.0) % Baso % (Auto) 0.5 (0.0-1.5) % Neut # (Auto) 3.0 (1.4-5.7) K/uL Lymph # (Auto) 1.8 (0.6-2.4) K/uL [place] # (Auto) 0.8 (0.0-0.8) K/uL Eos # (Auto) 0.3 (0.0-0.7) K/uL Baso # (Auto) 0.0 (0.0-0.1) K/uL Nucleated RBC % 0.0 /100WBC Nucleated RBCs # 0 K/uL Sodium 139 (136-148) mmol/L Potassium 3.2 L (3.5-5.1) mmol/L Chloride 101 (98-107) mmol/L Carbon Dioxide 31.2 (21.0-32.0) mmol/L BUN 7 (7.0-18.0) mg/dL Creatinine 1.0 (0.8-1.3) mg/dL Est Cr Clr Drug Dosing 109.92 mL/min Estimated GFR (MDRD) > 60.0 ml/min Glucose 101 (74-106) mg/dL Calcium 8.8 (8.5-10.1) mg/dL Magnesium 1.8 (1.8-2.4) mg/dL Total Bilirubin 2.0 H (0.2-1.0) mg/dL AST 188 H (15-37) IU/L ALT 87 H (14-63) IU/L Alkaline Phosphatase 79 (46-116) U/L Total Protein 6.8 (6.4-8.2) g/dL Albumin 3.4 (3.4-5.0) g/dL Globulin 3.4 (2.6-4.0) g/dL Albumin/Globulin Ratio 1.0 (0.9-1.6) Result Diagrams: 08/18/21 05:26 08/18/21 05:26 Tavon Results Last 24 hrs: Microbiology 08/15/21 20:30 Urine Culture - Final Urine Sepsis Event Note - Evaluation Sepsis Screening Result: No Definite Risk - Focused Exam Vital Signs: Vital Signs Temp Resp BP Pulse Ox 08/18/21 10:00 17 135/94 H 93 L 08/18/21 09:00 18 127/97 H 93 L 08/18/21 08:00 97.7 F 18 135/84 93 L 08/18/21 07:00 17 129/85 91 L 08/18/21 06:00 17 124/81 96 08/18/21 05:00 19 125/86 93 L 08/18/21 04:00 18 143/89 H 98 08/18/21 03:00 97.8 F 19 140/100 H 92 L - Problem List & Annotations (1) Alcohol withdrawal SNOMED Code(s): 711923196 Code(s): F10.239 - ALCOHOL DEPENDENCE WITH WITHDRAWAL, UNSPECIFIED Status: Acute Current Visit: Yes (2) Seizure due to alcohol withdrawal SNOMED Code(s): 908770531 Code(s): F10.239 - ALCOHOL DEPENDENCE WITH WITHDRAWAL, UNSPECIFIED; R56.9 - UNSPECIFIED CONVULSIONS Status: Acute Current Visit: Yes Qualifiers: Complication of substance-induced condition: uncomplicated Qualified Code(s): F10.230 - Alcohol dependence with withdrawal, uncomplicated; R56.9 - Unspecified convulsions (3) Gastritis SNOMED Code(s): 3345546 Code(s): K29.70 - GASTRITIS, UNSPECIFIED, WITHOUT BLEEDING Status: Acute Current Visit: No Qualifiers: Gastritis type: unspecified gastritis Chronicity: acute Gastritis bleeding: with bleeding Qualified Code(s): K29.01 - Acute gastritis with bleeding (4) Alcohol abuse SNOMED Code(s): 75550442 Code(s): F10.10 - ALCOHOL ABUSE, UNCOMPLICATED Status: Chronic Current Visit: No (5) Anxiety SNOMED Code(s): 63988908 Code(s): F41.9 - ANXIETY DISORDER, UNSPECIFIED Status: Chronic Current Visit: No - Problem List Review Problem List Initiated/Reviewed/Updated: Yes - Plan Plan:: Alcohol withdrawal Valium 5mg TID, CIWAA protocol with Ativan prn thiamine, folic acid Zofran, Protonix, Tums Patient remained in the ICU today due to increased Ativan requirement yesterday evening and early this morning.Will reevaluate tomorrow AM. <Ramiro Schmidt - Last Filed: 08/18/21 15:13> - Patient Data Vitals - Most Recent: Last Vital Signs Temp 36.5 C 08/18/21 08:00 Pulse 56 L 08/17/21 13:44 Resp 17 08/18/21 10:00 BP 135/94 H 08/18/21 10:00 Pulse Ox 93 L 08/18/21 10:00 I&O - Last 24 Hours: Intake & Output 08/18/21 08/18/21 08/18/21 06:59 14:59 22:59 Intake Total 3368 Output Total 3450 Balance -82 Lab Results Last 24 Hours: Laboratory Results - last 24 hr 08/18/21 08/18/21 Range/Units 05:26 05:26 WBC 5.88 (4.0-11.0) K/uL RBC 4.47 L (4.50-5.90) M/uL Hgb 14.3 (13.0-17.0) g/dL Hct 40.5 (38.0-50.0) % MCV 90.6 (80.0-98.0) fL MCH 32.0 (27.0-32.0) pg MCHC 35.3 (31.0-37.0) g/dL RDW Std Deviation 42.9 (28.0-62.0) fl RDW Coeff of Joseline 13 (11.0-15.0) % Plt Count 74 L (150-400) K/uL MPV 11.50 (7.40-12.00) fL Neut % (Auto) 51.0 (48.0-80.0) % Lymph % (Auto) 30.1 (16.0-40.0) % [place] % (Auto) 14.1 (0.0-15.0) % Eos % (Auto) 4.3 (0.0-7.0) % Baso % (Auto) 0.5 (0.0-1.5) % Neut # (Auto) 3.0 (1.4-5.7) K/uL Lymph # (Auto) 1.8 (0.6-2.4) K/uL [place] # (Auto) 0.8 (0.0-0.8) K/uL Eos # (Auto) 0.3 (0.0-0.7) K/uL Baso # (Auto) 0.0 (0.0-0.1) K/uL Nucleated RBC % 0.0 /100WBC Nucleated RBCs # 0 K/uL Sodium 139 (136-148) mmol/L Potassium 3.2 L (3.5-5.1) mmol/L Chloride 101 (98-107) mmol/L Carbon Dioxide 31.2 (21.0-32.0) mmol/L BUN 7 (7.0-18.0) mg/dL Creatinine 1.0 (0.8-1.3) mg/dL Est Cr Clr Drug Dosing 109.92 mL/min Estimated GFR (MDRD) > 60.0 ml/min Glucose 101 (74-106) mg/dL Calcium 8.8 (8.5-10.1) mg/dL Magnesium 1.8 (1.8-2.4) mg/dL Total Bilirubin 2.0 H (0.2-1.0) mg/dL AST 188 H (15-37) IU/L ALT 87 H (14-63) IU/L Alkaline Phosphatase 79 (46-116) U/L Total Protein 6.8 (6.4-8.2) g/dL Albumin 3.4 (3.4-5.0) g/dL Globulin 3.4 (2.6-4.0) g/dL Albumin/Globulin Ratio 1.0 (0.9-1.6) Tavon Results Last 24 Hours: Microbiology 08/15/21 20:30 Urine Culture - Final Urine Med Orders - Current: Current Medications Acetaminophen (Acetaminophen 325 Mg Tab) 650 mg PO Q6H PRN PRN Reason: Headache Last Admin: 08/17/21 05:29 Dose: 650 mg Documented by: Calcium Carbonate/Glycine (Calcium Carbonate 500 Mg Tab.Chew) 1,000 mg PO Q2HR PRN PRN Reason: Indigestion Last Admin: 08/17/21 13:06 Dose: 1,000 mg Documented by: Diazepam (Diazepam 5 Mg Tab) 5 mg PO Q8H [facility] Last Admin: 08/18/21 13:53 Dose: 5 mg Documented by: Folic Acid (Folic Acid 50 Mg/10 Ml Mdv) 1 mg SUBCUT DAILY [facility] Last Admin: 08/18/21 08:23 Dose: 1 mg Documented by: Sodium Chloride (Normal Saline) 1,000 mls @ 100 mls/hr IV ASDIRECTED [facility] Last Admin: 08/18/21 14:16 Dose: 100 mls/hr Documented by: Pantoprazole Sodium 40 mg/ (Sodium Chloride) 10 mls @ 200 mls/hr IV Q24H [facility] Last Admin: 08/17/21 21:09 Dose: 200 mls/hr Documented by: Lorazepam (Lorazepam 2 Mg/Ml Sdv) 0 mg IVPUSH Q4H PRN; Protocol PRN Reason: CIWAA Last Admin: 08/18/21 04:30 Dose: 2 mg Documented by: Nicotine (Nicotine 14 Mg/24 Hr Patch) 14 mg TRDERM DAILY [facility] Last Admin: 08/18/21 08:52 Dose: 14 mg Documented by: Ondansetron HCl (Ondansetron 4 Mg/2 Ml Sdv) 4 mg IVPUSH Q6H PRN PRN Reason: Nausea/Vomiting Last Admin: 08/16/21 15:01 Dose: 4 mg Documented by: Potassium Chloride (Potassium Chloride 20 Meq Tab.Er) 40 meq PO DAILY [facility] Last Admin: 08/18/21 08:23 Dose: 40 meq Documented by: Thiamine HCl (Thiamine 200 Mg/2 Ml Mdv) 100 mg IVPUSH DAILY [facility] Last Admin: 08/18/21 08:29 Dose: 100 mg Documented by: Discontinued Medications Sodium Chloride (Normal Saline) 1,000 mls @ 999 mls/hr IV STAT ONE Stop: 08/15/21 19:09 Last Admin: 08/15/21 18:19 Dose: 999 mls/hr Documented by: Sodium Chloride (Normal Saline) 1,000 mls @ 125 mls/hr IV STAT ONE Stop: 08/16/21 03:22 Last Admin: 08/15/21 19:49 Dose: 125 mls/hr Documented by: Pantoprazole Sodium 40 mg/ (Sodium Chloride) 20 mls @ 420 mls/hr IVPUSH Q24H [facility] Last Admin: 08/16/21 21:55 Dose: Not Given Documented by: Labetalol HCl (Labetalol 100 Mg/20 Ml Mdv) 20 mg IVPUSH ONETIME ONE Stop: 08/17/21 12:47 Last Admin: 08/17/21 13:06 Dose: 20 mg Documented by: Lorazepam (Lorazepam 2 Mg/Ml Sdv) 1 mg IVPUSH ONETIME ONE Stop: 08/15/21 18:10 Last Admin: 08/15/21 18:19 Dose: 1 mg Documented by: Lorazepam (Lorazepam 2 Mg/Ml Sdv) 1 mg IVPUSH ONETIME ONE Stop: 08/15/21 19:24 Last Admin: 08/15/21 19:48 Dose: 1 mg Documented by: Pantoprazole Sodium (Pantoprazole 40 Mg Vial) Confirm Administered Dose 40 mg .ROUTE .STK-MED ONE Stop: 08/16/21 19:49 Last Admin: 08/16/21 20:50 Dose: Not Given Documented by: Potassium Chloride (Potassium Chloride 20 Meq Tab.Er) 40 meq PO ONETIME ONE Stop: 08/18/21 07:15 Last Admin: 08/18/21 08:28 Dose: Not Given Documented by: Potassium Chloride (Potassium Chloride 20 Meq Tab.Er) 40 meq PO ONETIME ONE Stop: 08/18/21 13:01 Last Admin: 08/18/21 13:53 Dose: 40 meq Documented by: - Patient Data Lab Results Last 24 hrs: Laboratory Results - last 24 hr 08/18/21 08/18/21 Range/Units 05:26 05:26 WBC 5.88 (4.0-11.0) K/uL RBC 4.47 L (4.50-5.90) M/uL Hgb 14.3 (13.0-17.0) g/dL Hct 40.5 (38.0-50.0) % MCV 90.6 (80.0-98.0) fL MCH 32.0 (27.0-32.0) pg MCHC 35.3 (31.0-37.0) g/dL RDW Std Deviation 42.9 (28.0-62.0) fl RDW Coeff of Joseline 13 (11.0-15.0) % Plt Count 74 L (150-400) K/uL MPV 11.50 (7.40-12.00) fL Neut % (Auto) 51.0 (48.0-80.0) % Lymph % (Auto) 30.1 (16.0-40.0) % [place] % (Auto) 14.1 (0.0-15.0) % Eos % (Auto) 4.3 (0.0-7.0) % Baso % (Auto) 0.5 (0.0-1.5) % Neut # (Auto) 3.0 (1.4-5.7) K/uL Lymph # (Auto) 1.8 (0.6-2.4) K/uL [place] # (Auto) 0.8 (0.0-0.8) K/uL Eos # (Auto) 0.3 (0.0-0.7) K/uL Baso # (Auto) 0.0 (0.0-0.1) K/uL Nucleated RBC % 0.0 /100WBC Nucleated RBCs # 0 K/uL Sodium 139 (136-148) mmol/L Potassium 3.2 L (3.5-5.1) mmol/L Chloride 101 (98-107) mmol/L Carbon Dioxide 31.2 (21.0-32.0) mmol/L BUN 7 (7.0-18.0) mg/dL Creatinine 1.0 (0.8-1.3) mg/dL Est Cr Clr Drug Dosing 109.92 mL/min Estimated GFR (MDRD) > 60.0 ml/min Glucose 101 (74-106) mg/dL Calcium 8.8 (8.5-10.1) mg/dL Magnesium 1.8 (1.8-2.4) mg/dL Total Bilirubin 2.0 H (0.2-1.0) mg/dL AST 188 H (15-37) IU/L ALT 87 H (14-63) IU/L Alkaline Phosphatase 79 (46-116) U/L Total Protein 6.8 (6.4-8.2) g/dL Albumin 3.4 (3.4-5.0) g/dL Globulin 3.4 (2.6-4.0) g/dL Albumin/Globulin Ratio 1.0 (0.9-1.6) Result Diagrams: 08/18/21 05:26 08/18/21 05:26 Tavon Results Last 24 hrs: Microbiology 08/15/21 20:30 Urine Culture - Final Urine Sepsis Event Note - Focused Exam Vital Signs: Vital Signs Temp Resp BP Pulse Ox 08/18/21 10:00 17 135/94 H 93 L 08/18/21 09:00 18 127/97 H 93 L 08/18/21 08:00 36.5 C 18 135/84 93 L 08/18/21 07:00 17 129/85 91 L 08/18/21 06:00 17 124/81 96 08/18/21 05:00 19 125/86 93 L 08/18/21 04:00 18 143/89 H 98 - Plan Plan:: I have seen and evaluated the patient and agree with the residents note unless specified in my note
[2021-08-18] MEDS: Pantoprazole 40 MG in Sodium Chloride 0.9% 10 ML IV SCH (21:17)
[2021-08-18] MEDS ORDERED: Melatonin 3 MG Tab PO ONE (21:45)
[2021-08-19 08:30] VITALS: BP 148/103; PULSE 80
[2021-08-19 08:30] LABS: BLOOD UREA NITROGEN,BUN 12 mg/dL (7.0-18.0); CARBON DIOXIDE,CO2 30.2 mmol/L (21.0-32.0); CHLORIDE,CL 102 mmol/L (98-107); GLUCOSE RANDOM 95 mg/dL (74-106); POTASSIUM,K 3.8 mmol/L (3.5-5.1); SODIUM,NA 139 mmol/L (136-148)
[2021-08-19] MEDS ORDERED: Diazepam 5 MG Tab PO SCH (09:00)
[2021-08-19] MEDS: Thiamine 200 MG/2 ML MDV IVPUSH SCH (09:38)
[2021-08-19] MEDS: Folic Acid 50 MG/10 ML MDV SUBCUT SCH (09:38)
[2021-08-19] MEDS: Potassium Chloride 20 MEQ Tab.ER PO SCH (09:38)
[2021-08-19] MEDS: Nicotine 14 MG/24 Hr Patch TRDERM SCH (09:40)
--- NOTE | 2021-08-19 12:38 | PCM.DCSUM1 ---
<Matt Doyle - Last Filed: 08/19/21 14:48> Discharge Summary - Hospital Course Free Text/Narrative:: 31-year-old male who presented to the emergency room with complaints of seizures, feeling unwell, chills and diaphoresis. Patient has history of chronic alcohol abuse and seizure history. Patient stated prior attempts to detox from alcohol but has been unsuccessful. Per documentation patient's last drink was 2 days prior to admission. Patient was brought to the ER via emergency services a nd complained off chills, nausea, weakness. Stated poor appetite for the past week. Patient admitted to the ICU for alcohol withdrawal with concerns over impending seizure. Patient was started on Valium 5 mg 3 times daily, CIWA protocol, and did require multiple Ativan doses throughout his hospitalization, thiamine, folic acid. Patient remained in the ICU from 08-15 to 08-18, requiring multiple doses of Ativan. Patient discharged on on MedSurg status. At discharge patient was placed in a cab and sent to [facility] for alcohol addiction treatment. Patient discharged home with prescriptions for thiamine and folic acid supplementation. Recommendation made for patient to obtain hepatitis panel secondary to elevated liver enzymes. - Discharge Data Discharge Date: 08/19/21 Discharge Disposition: Home, Self-Care 01 Condition: Stable - Referral to Home Health Primary Care Physician: PCP None - Discharge Diagnosis/Problem(s) (1) Alcohol withdrawal SNOMED Code(s): 050706683 ICD Code: F10.239 - ALCOHOL DEPENDENCE WITH WITHDRAWAL, UNSPECIFIED Status: Acute (2) Seizure due to alcohol withdrawal SNOMED Code(s): 586660627 ICD Code: F10.239 - ALCOHOL DEPENDENCE WITH WITHDRAWAL, UNSPECIFIED; R56.9 - UNSPECIFIED CONVULSIONS Status: Acute Qualifiers: Complication of substance-induced condition: uncomplicated Qualified Code(s): F10.230 - Alcohol dependence with withdrawal, uncomplicated; R56.9 - Unspecified convulsions (3) Gastritis SNOMED Code(s): 8290875 ICD Code: K29.70 - GASTRITIS, UNSPECIFIED, WITHOUT BLEEDING Status: Acute Qualifiers: Gastritis type: unspecified gastritis Chronicity: acute Gastritis bleeding: with bleeding Qualified Code(s): K29.01 - Acute gastritis with bleeding (4) Alcohol abuse SNOMED Code(s): 49333961 ICD Code: F10.10 - ALCOHOL ABUSE, UNCOMPLICATED Status: Chronic (5) Anxiety SNOMED Code(s): 80703713 ICD Code: F41.9 - ANXIETY DISORDER, UNSPECIFIED Status: Chronic - Patient Instructions Activity: As Tolerated Notify Provider of: Fever, Increased Pain, Nausea and/or Vomiting Other/Special Instructions: PATIENT TO FOLLOW UP WITH PCP FOR FURTHER MEDICAL MANAGMENT. RECOMMEND HEPATITIS PANEL ON DISCHARGE WITH PCP. - Discharge Plan *PRESCRIPTION DRUG MONITORING PROGRAM REVIEWED*: Not Applicable *COPY OF PRESCRIPTION DRUG MONITORING REPORT IN PATIENT SUMAN: Not Applicable Prescriptions/Med Rec: Folic Acid 0.4 mg PO DAILY 7 Days #7 tab Thiamine [Vitamin B-1] 100 mg PO DAILY #7 tablet Home Medications: Home Meds busPIRone [Buspar] 15 mg PO BID #60 tablet 03/24/21 [Rx] Folic Acid 0.4 mg PO DAILY 7 Days #7 tab 08/19/21 [Rx] Thiamine [Vitamin B-1] 100 mg PO DAILY #7 tablet 08/19/21 [Rx] Patient Handouts: Alcohol Withdrawal Syndrome, Gerv-eq-Inin Forms: ED Department Discharge Referrals: Berlin Guallpa MD [Ordering Only Provider] - (Pt will follow up with Dr. Guallpa after he is evaluated by [facility]. Pt is uninsured and requests that we do not set up an appointment for him at this time) - Discharge Summary/Plan Comment DC Time >30 min.: Yes Total # of Minutes for Discharge Time: 40 - General Info Date of Service: 08/19/21 Subjective Update: Patient still states fatigue and feeling sleepy. Denies fever, chills, nausea, vomiting pain, chest pain, shortness of breath. Patient states he would like to attend [facility] [employer] [facility] for alcohol addiction but is concerned over the cost to do so. - Review of Systems Pulmonary: Denies: Shortness of Breath, Cough Cardiovascular: Denies: Chest Pain, Edema Gastrointestinal: Denies: Abdominal Pain, Constipation, Diarrhea, Nausea, Vomiting Neurological: Denies: Confusion, Dizziness, Headache Psychiatric: Denies: Confusion - Patient Data Vitals - Most Recent: Last Vital Signs Temp 97.9 F 08/19/21 08:00 Pulse 80 08/19/21 08:00 Resp 15 08/19/21 08:00 BP 148/103 H 08/19/21 08:00 Pulse Ox 100 08/19/21 08:00 Weight - Most Recent: 64.9 kg I&O - Last 24 hours: Intake & Output 08/18/21 08/19/21 08/19/21 22:59 06:59 14:59 Intake Total 3302 2800 Output Total 2720 6280 Balance 582 350 Lab Results - Last 24 hrs: Laboratory Results - last 24 hr 08/19/21 08/19/21 Range/Units 07:48 07:48 WBC 5.69 (4.0-11.0) K/uL RBC 4.67 (4.50-5.90) M/uL Hgb 14.9 (13.0-17.0) g/dL Hct 42.9 (38.0-50.0) % MCV 91.9 (80.0-98.0) fL MCH 31.9 (27.0-32.0) pg MCHC 34.7 (31.0-37.0) g/dL RDW Std Deviation 43.8 (28.0-62.0) fl RDW Coeff of Joseline 13 (11.0-15.0) % Plt Count 99 L (150-400) K/uL MPV 11.00 (7.40-12.00) fL Neut % (Auto) 32.1 L (48.0-80.0) % Lymph % (Auto) 39.2 (16.0-40.0) % King % (Auto) 22.0 H (0.0-15.0) % Eos % (Auto) 6.2 (0.0-7.0) % Baso % (Auto) 0.5 (0.0-1.5) % Neut # (Auto) 1.8 (1.4-5.7) K/uL Lymph # (Auto) 2.2 (0.6-2.4) K/uL King # (Auto) 1.3 H (0.0-0.8) K/uL Eos # (Auto) 0.4 (0.0-0.7) K/uL Baso # (Auto) 0.0 (0.0-0.1) K/uL Nucleated RBC % 0.0 /100WBC Nucleated RBCs # 0 K/uL Sodium 139 (136-148) mmol/L Potassium 3.8 (3.5-5.1) mmol/L Chloride 102 (98-107) mmol/L Carbon Dioxide 30.2 (21.0-32.0) mmol/L BUN 12 (7.0-18.0) mg/dL Creatinine 0.9 (0.8-1.3) mg/dL Est Cr Clr Drug Dosing 111.17 mL/min Estimated GFR (MDRD) > 60.0 ml/min Glucose 95 (74-106) mg/dL Calcium 9.5 (8.5-10.1) mg/dL Magnesium 1.9 (1.8-2.4) mg/dL Total Bilirubin 1.7 H (0.2-1.0) mg/dL AST 220 H (15-37) IU/L ALT 129 H (14-63) IU/L Alkaline Phosphatase 79 (46-116) U/L Total Protein 7.2 (6.4-8.2) g/dL Albumin 3.5 (3.4-5.0) g/dL Globulin 3.7 (2.6-4.0) g/dL Albumin/Globulin Ratio 0.9 (0.9-1.6) Med Orders - Current: Current Medications Discontinued Medications Acetaminophen (Acetaminophen 325 Mg Tab) 650 mg PO Q6H PRN PRN Reason: Headache Last Admin: 08/17/21 05:29 Dose: 650 mg Documented by: Calcium Carbonate/Glycine (Calcium Carbonate 500 Mg Tab.Chew) 1,000 mg PO Q2HR PRN PRN Reason: Indigestion Last Admin: 08/17/21 13:06 Dose: 1,000 mg Documented by: Diazepam (Diazepam 5 Mg Tab) 5 mg PO Q8H [facility] Last Admin: 08/18/21 21:17 Dose: 5 mg Documented by: Diazepam (Diazepam 5 Mg Tab) 5 mg PO BID [facility] Last Admin: 08/19/21 09:37 Dose: 5 mg Documented by: Folic Acid (Folic Acid 50 Mg/10 Ml Mdv) 1 mg SUBCUT DAILY [facility] Last Admin: 08/19/21 09:38 Dose: 1 mg Documented by: Sodium Chloride (Normal Saline) 1,000 mls @ 999 mls/hr IV STAT ONE Stop: 08/15/21 19:09 Last Admin: 08/15/21 18:19 Dose: 999 mls/hr Documented by: Sodium Chloride (Normal Saline) 1,000 mls @ 125 mls/hr IV STAT ONE Stop: 08/16/21 03:22 Last Admin: 08/15/21 19:49 Dose: 125 mls/hr Documented by: Pantoprazole Sodium 40 mg/ (Sodium Chloride) 20 mls @ 420 mls/hr IVPUSH Q24H [facility] Last Admin: 08/16/21 21:55 Dose: Not Given Documented by: Sodium Chloride (Normal Saline) 1,000 mls @ 100 mls/hr IV ASDIRECTED [facility] Last Admin: 08/18/21 14:16 Dose: 100 mls/hr Documented by: Pantoprazole Sodium 40 mg/ (Sodium Chloride) 10 mls @ 200 mls/hr IV Q24H [facility] Last Admin: 08/18/21 21:17 Dose: 200 mls/hr Documented by: Labetalol HCl (Labetalol 100 Mg/20 Ml Mdv) 20 mg IVPUSH ONETIME ONE Stop: 08/17/21 12:47 Last Admin: 08/17/21 13:06 Dose: 20 mg Documented by: Lorazepam (Lorazepam 2 Mg/Ml Sdv) 1 mg IVPUSH ONETIME ONE Stop: 08/15/21 18:10 Last Admin: 08/15/21 18:19 Dose: 1 mg Documented by: Lorazepam (Lorazepam 2 Mg/Ml Sdv) 1 mg IVPUSH ONETIME ONE Stop: 08/15/21 19:24 Last Admin: 08/15/21 19:48 Dose: 1 mg Documented by: Lorazepam (Lorazepam 2 Mg/Ml Sdv) 0 mg IVPUSH Q4H PRN; Protocol PRN Reason: CIWAA Last Admin: 08/18/21 04:30 Dose: 2 mg Documented by: Melatonin (Melatonin 3 Mg Tab) 6 mg PO ONETIME ONE Stop: 08/18/21 21:46 Last Admin: 08/18/21 22:10 Dose: 6 mg Documented by: Nicotine (Nicotine 14 Mg/24 Hr Patch) 14 mg TRDERM DAILY [facility] Last Admin: 08/19/21 09:40 Dose: 14 mg Documented by: Ondansetron HCl (Ondansetron 4 Mg/2 Ml Sdv) 4 mg IVPUSH Q6H PRN PRN Reason: Nausea/Vomiting Last Admin: 08/16/21 15:01 Dose: 4 mg Documented by: Pantoprazole Sodium (Pantoprazole 40 Mg Vial) Confirm Administered Dose 40 mg .ROUTE .STK-MED ONE Stop: 08/16/21 19:49 Last Admin: 08/16/21 20:50 Dose: Not Given Documented by: Potassium Chloride (Potassium Chloride 20 Meq Tab.Er) 40 meq PO DAILY [facility] Last Admin: 08/19/21 09:38 Dose: 40 meq Documented by: Potassium Chloride (Potassium Chloride 20 Meq Tab.Er) 40 meq PO ONETIME ONE Stop: 08/18/21 07:15 Last Admin: 08/18/21 08:28 Dose: Not Given Documented by: Potassium Chloride (Potassium Chloride 20 Meq Tab.Er) 40 meq PO ONETIME ONE Stop: 08/18/21 13:01 Last Admin: 08/18/21 13:53 Dose: 40 meq Documented by: Potassium Chloride (Potassium Chloride 20 Meq Tab.Er) 40 meq PO ONETIME ONE Stop: 08/19/21 14:01 Thiamine HCl (Thiamine 200 Mg/2 Ml Mdv) 100 mg IVPUSH DAILY [facility] Last Admin: 08/19/21 09:38 Dose: 100 mg Documented by: - Exam General: Reports: Alert, Oriented Lungs: Reports: Clear to Auscultation, Normal Respiratory Effort Cardiovascular: Reports: Regular Rate, Regular Rhythm GI/Abdominal Exam: Soft, Non-Tender Psy/Mental Status: Reports: Alert <Brayan,Hooria - Last Filed: 08/21/21 12:14> Discharge Summary - Hospital Course Free Text/Narrative:: I have seen and evaluated the patient and agree with the residents note unless specified in my note - Referral to Home Health Primary Care Physician: PCP None - Patient Data Vitals - Most Recent: Last Vital Signs Temp 36.6 C 08/19/21 08:00 Pulse 80 08/19/21 08:00 Resp 15 08/19/21 08:00 BP 148/103 H 08/19/21 08:00 Pulse Ox 100 08/19/21 08:00 Med Orders - Current: Current Medications Discontinued Medications Acetaminophen (Acetaminophen 325 Mg Tab) 650 mg PO Q6H PRN PRN Reason: Headache Last Admin: 08/17/21 05:29 Dose: 650 mg Documented by: Calcium Carbonate/Glycine (Calcium Carbonate 500 Mg Tab.Chew) 1,000 mg PO Q2HR PRN PRN Reason: Indigestion Last Admin: 08/17/21 13:06 Dose: 1,000 mg Documented by: Diazepam (Diazepam 5 Mg Tab) 5 mg PO Q8H [facility] Last Admin: 08/18/21 21:17 Dose: 5 mg Documented by: Diazepam (Diazepam 5 Mg Tab) 5 mg PO BID [facility] Last Admin: 08/19/21 09:37 Dose: 5 mg Documented by: Folic Acid (Folic Acid 50 Mg/10 Ml Mdv) 1 mg SUBCUT DAILY [facility] Last Admin: 08/19/21 09:38 Dose: 1 mg Documented by: Sodium Chloride (Normal Saline) 1,000 mls @ 999 mls/hr IV STAT ONE Stop: 08/15/21 19:09 Last Admin: 08/15/21 18:19 Dose: 999 mls/hr Documented by: Sodium Chloride (Normal Saline) 1,000 mls @ 125 mls/hr IV STAT ONE Stop: 08/16/21 03:22 Last Admin: 08/15/21 19:49 Dose: 125 mls/hr Documented by: Pantoprazole Sodium 40 mg/ (Sodium Chloride) 20 mls @ 420 mls/hr IVPUSH Q24H [facility] Last Admin: 08/16/21 21:55 Dose: Not Given Documented by: Sodium Chloride (Normal Saline) 1,000 mls @ 100 mls/hr IV ASDIRECTED [facility] Last Admin: 08/18/21 14:16 Dose: 100 mls/hr Documented by: Pantoprazole Sodium 40 mg/ (Sodium Chloride) 10 mls @ 200 mls/hr IV Q24H [facility] Last Admin: 08/18/21 21:17 Dose: 200 mls/hr Documented by: Labetalol HCl (Labetalol 100 Mg/20 Ml Mdv) 20 mg IVPUSH ONETIME ONE Stop: 08/17/21 12:47 Last Admin: 08/17/21 13:06 Dose: 20 mg Documented by: Lorazepam (Lorazepam 2 Mg/Ml Sdv) 1 mg IVPUSH ONETIME ONE Stop: 08/15/21 18:10 Last Admin: 08/15/21 18:19 Dose: 1 mg Documented by: Lorazepam (Lorazepam 2 Mg/Ml Sdv) 1 mg IVPUSH ONETIME ONE Stop: 08/15/21 19:24 Last Admin: 08/15/21 19:48 Dose: 1 mg Documented by: Lorazepam (Lorazepam 2 Mg/Ml Sdv) 0 mg IVPUSH Q4H PRN; Protocol PRN Reason: CIWAA Last Admin: 08/18/21 04:30 Dose: 2 mg Documented by: Melatonin (Melatonin 3 Mg Tab) 6 mg PO ONETIME ONE Stop: 08/18/21 21:46 Last Admin: 08/18/21 22:10 Dose: 6 mg Documented by: Nicotine (Nicotine 14 Mg/24 Hr Patch) 14 mg TRDERM DAILY [facility] Last Admin: 08/19/21 09:40 Dose: 14 mg Documented by: Ondansetron HCl (Ondansetron 4 Mg/2 Ml Sdv) 4 mg IVPUSH Q6H PRN PRN Reason: Nausea/Vomiting Last Admin: 08/16/21 15:01 Dose: 4 mg Documented by: Pantoprazole Sodium (Pantoprazole 40 Mg Vial) Confirm Administered Dose 40 mg .ROUTE .STK-MED ONE Stop: 08/16/21 19:49 Last Admin: 08/16/21 20:50 Dose: Not Given Documented by: Potassium Chloride (Potassium Chloride 20 Meq Tab.Er) 40 meq PO DAILY [facility] Last Admin: 08/19/21 09:38 Dose: 40 meq Documented by: Potassium Chloride (Potassium Chloride 20 Meq Tab.Er) 40 meq PO ONETIME ONE Stop: 08/18/21 07:15 Last Admin: 08/18/21 08:28 Dose: Not Given Documented by: Potassium Chloride (Potassium Chloride 20 Meq Tab.Er) 40 meq PO ONETIME ONE Stop: 08/18/21 13:01 Last Admin: 08/18/21 13:53 Dose: 40 meq Documented by: Potassium Chloride (Potassium Chloride 20 Meq Tab.Er) 40 meq PO ONETIME ONE Stop: 08/19/21 14:01 Thiamine HCl (Thiamine 200 Mg/2 Ml Mdv) 100 mg IVPUSH DAILY [facility] Last Admin: 08/19/21 09:38 Dose: 100 mg Documented by:
[2021-08-19] MEDS ORDERED: Potassium Chloride 20 MEQ Tab.ER PO ONE (14:00)
== END 2021-08-19 11:45 | disposition home or self-care (01) | DRG 896 ==
LOC: MW.ED 18:04 → MW.ICU 20:09
PROVIDERS: ADMIT Internal Medicine; ATTEND Internal Medicine
DX: F10.230 Alcohol dependence with withdrawal, uncomplicated (principal); K29.01 Acute gastritis with bleeding; R56.9 Unspecified convulsions; F10.220 Alcohol dependence with intoxication, uncomplicated; F41.9 Anxiety disorder, unspecified; F32.9 Major depressive disorder, single episode, unspecified; Z20.822 Contact with and (suspected) exposure to COVID-19; Z88.5 Allergy status to narcotic agent
CPT/HCPCS: 36415; 70450; 70450-26; 71045; 71045-26; 80053; 80305-QW; 80307; 81001; 82550; 83036; 83605; 83690; 83735; 84100; 85025; 87086; 93005; 96374; 96376; 99285-25; A9270-GY; C9113; J2060; J2405; J3411; J3490; J7030; U0002

== ENCOUNTER 2021-10-07 18:49 | Emergency (ER) | payer SELFPAY ==
[2021-10-07 19:22] VITALS: BP 134/94; PULSE 124
[2021-10-07] MEDS ORDERED: Ondansetron 4 MG Tab.DIS PO ONE (19:40)
--- NOTE | 2021-10-07 19:48 | EDM.PDOC ---
ED HPI GENERAL MEDICAL PROBLEM - General Chief Complaint: Drug or Alcohol Abuse Stated Complaint: MED CLEARANCE Time Seen by Provider: 10/07/21 19:37 Source of Information: Reports: Patient History Limitations: Reports: No Limitations - History of Present Illness INITIAL COMMENTS - FREE TEXT/NARRATIVE: HISTORY AND PHYSICAL: History of present illness: Patient is a 31-year-old male who presents to the emergency room with law enforcement for medical screening exam. Patient states he drank alcohol yesterday and his family called the police as he is "not supposed to drink". P atient states he is scared he may have a seizure and he is requesting something for anxiety. States he took the last of his buspirone and Dr. Guallpa "will not fill it". Denies any drug abuse. Patient denies any fever, chills, headache, change in vision, syncope or near syncope. Denies any chest pain, back pain, shortness of breath or cough. Denies any GI or symptoms. Patient has been eating and drinking appropriately. Review of systems: As per history of present illness and below otherwise all systems reviewed and negative. Past medical history: As per history of present illness and as reviewed below otherwise noncontributory. Surgical history: As per history of present illness and as reviewed below otherwise noncontributory. Social history: See social history for further information Family history: As per history of present illness and as reviewed below otherwise noncontributory. Physical exam: General: Well developed and well nourished. Alert and orientated x 3. Answering questions appropriately. Nontoxic in appearance and in no acute distress. Vital signs are stable and have been reviewed by me. Nursing notes were reviewed. Accompanied by law enforcement. HEENT: Atraumatic, normocephalic, pupils equal and reactive bilaterally, negative for conjunctival pallor or scleral icterus, mucous membranes moist, trachea midline. No drooling or trismus noted. No meningeal signs. No hot potato voice noted. Lungs: Clear to auscultation, breath sounds equal bilaterally. Normal work of breathing, no accessory muscles used. Heart: S1S2, regular rate and rhythm without overt murmur Abdomen: Soft, nondistended, nontender. Negative for masses or costovertebral tenderness. Skin: Intact, warm, dry. No lesions or rashes noted. Hematologic: No petechiae or purpra. Mucosa appropriate color and normal nail bed color and refill. Extremities: Ambulatory, moves all extremities per self without difficulty or deficits. Neurovascular unremarkable. Neuro: Awake, alert, oriented. Cranial nerves II through XII unremarkable. Cerebellum unremarkable. Motor and sensory unremarkable throughout. Exam nonfocal. Psychiatric: Mood and affect are appropriate. Normal thought process. Answering questions appropriately. Please note that the patient was seen and evaluated during the 2019 SARS-CoV-2 novel coronavirus pandemic period. Community viral transmission is ongoing at time of this encounter and the emergency department is operating under pandemic response procedures. Medical Decision Making: Law enforcement has no specific concerns for today's ER visit. I have talked wit h the patient and administrative officer about today's ER visit, in addition to providing specific details for plan of care. Patient is showing no signs of withdrawal. He is alert, oriented and answering questions appropriately. Patient is upset that I will not give him any medication for anxiety/prophylactic treatment of possible seizure from alcohol withdrawal. Blood glucose is within normal limits. Reassessment at the time of disposition demonstrates that the patient is in no acute distress. The patient is stable for discharge, counseling was provided and we discussed in great detail signs and symptoms that would prompt them to return to the Emergency Department. Medication, follow up and supportive care measures were reviewed and discussed. Voices understanding and is agreeable to plan of care. Denies any further questions or concerns at this time. Diagnostics: Blood glucose Therapeutics: Zofran Prescription: None Impression: Encounter for medical screening Plan: 1. You were evaluated today on an emergent basis. Stop drinking alcohol. Today your physical exam and vital signs are within normal limits. 2. We encourage you to follow up with Dr Guallpa in the next few days for re- evaluation and further care/management. 3. If you should develop symptoms or feel the need to be evaluated in the emergency department - please feel free to return or call 911 if necessary. Definitive disposition and diagnosis as appropriate pending reevaluation and review of above. - Related Data Allergies Allergy/AdvReac Type Severity Reaction Status Date / Time hydrocodone Allergy Intermediate Vomiting Verified 10/07/21 19:19 Home Meds: Home Meds busPIRone [Buspar] 15 mg PO BID #60 tablet 03/24/21 [Rx] Folic Acid 0.4 mg PO DAILY 7 Days #7 tab 08/19/21 [Rx] Thiamine [Vitamin B-1] 100 mg PO DAILY #7 tablet 08/19/21 [Rx] Past Medical History - Past Health History Medical/Surgical History: Denies Medical/Surgical History HEENT History: Reports: Other (See Below) Other HEENT History: Deviated Septum, season allergies Cardiovascular History: Reports: None Respiratory History: Reports: None Gastrointestinal History: Reports: None Genitourinary History: Reports: None Musculoskeletal History: Reports: Fracture, Other (See Below) Other Musculoskeletal History: Shattered thumb from a fall Neurological History: Reports: Concussion Psychiatric History: Reports: Addiction, Anxiety, Depression Endocrine/Metabolic History: Reports: None Insulin Pump Model and Vehicle Trimmer: N/A Hematologic History: Reports: None Immunologic History: Reports: None Oncologic (Cancer) History: Reports: None Dermatologic History: Reports: None - Infectious Disease History Infectious Disease History: Reports: Chicken Pox, Mononucleosis, Novel Coronavirus - Past Surgical History Head Surgeries/Procedures: Reports: None HEENT Surgical History: Reports: None Cardiovascular Surgical History: Reports: None GI Surgical History: Reports: None Musculoskeletal Surgical History: Reports: Other (See Below) Other Musculoskeletal Surgeries/Procedures:: Right Thumb surgery Social & Family History - Family History Family Medical History: No Pertinent Family History - Caffeine Use Caffeine Use: Reports: Soda - Recreational Drug Use Recreational Drug Use: No - Living Situation & Occupation Living situation: Reports: Occupation: Unemployed ED ROS GENERAL - Review of Systems Review Of Systems: Comprehensive ROS is negative, except as noted in HPI. ED EXAM, GENERAL - Physical Exam Exam: See Below (See dictation) Course - Vital Signs Last Recorded V/S: Last Vital Signs Temp 97.7 F 10/07/21 19:19 Pulse 124 H 10/07/21 19:19 Resp 18 10/07/21 19:19 BP 134/94 H 10/07/21 19:19 Pulse Ox 96 10/07/21 19:19 - Orders/Labs/Meds Meds: Medications Discontinued Medications Generic Name Dose Route Start Last Admin Trade Name Freq PRN Reason Stop Dose Admin Ondansetron HCl 4 mg 10/07/21 19:40 10/07/21 19:56 Ondansetron 4 Mg Tab.Dis PO 10/07/21 19:41 4 mg ONETIME ONE Administration Departure - Departure Time of Disposition: 19:47 Disposition: Home, Self-Care 01 Clinical Impression: Medical clearance for incarceration - Discharge Information Instructions: Medical Screening Exam Referrals: Berlin Guallpa MD [Primary Care Provider] - Forms: ED Department Discharge Additional Instructions: The following information is given to patients seen in the emergency department who are being discharged to home. This information is to outline your options for follow-up care. We provide all patients seen in our emergency department with a follow-up referral. The need for follow-up, as well as the timing and circumstances, are variable depending upon the specifics of your emergency department visit. If you don't have a primary care physician on staff, we will provide you with a referral. We always advise you to contact your personal physician following an emergency department visit to inform them of the circumstance of the visit and for follow-up with them and/or the need for any referrals to a consulting specialist. The emergency department will also refer you to a specialist when appropriate. This referral assures that you have the opportunity for follow-up care with a specialist. All of these measure are taken in an effort to provide you with optimal care, which includes your follow-up. Under all circumstances we always encourage you to contact your private physician who remains a resource for coordinating your care. When calling for follow-up care, please make the office aware that this follow-up is from your recent emergency room visit. If for any reason you are refused follow-up, please contact the [facility] Emergency Department at and asked to speak to the emergency department charge nurse. [facility] [address] [place] [id number] [address] Thank you for choosing the [facility] emergency department in [place] for your medical needs today. It was a pleasure caring for you. Today you were seen in the emergency department for alcohol abuse and medical screening exam. 1. You were evaluated today on an emergent basis. Stop drinking alcohol. Today your physical exam and vital signs are within normal limits. 2. We encourage you to follow up with Dr Guallpa in the next few days for re- evaluation and further care/management. 3. If you should develop symptoms or feel the need to be evaluated in the emergency department - please feel free to return or call 911 if necessary. Sepsis Event Note (ED) - Evaluation Sepsis Screening Result: No Definite Risk - Focused Exam Vital Signs: Vital Signs Temp Pulse Resp BP Pulse Ox 10/07/21 19:19 97.7 F 124 H 18 134/94 H 96
== END 2021-10-07 19:59 | disposition home or self-care (01) ==
LOC: MW.ED 18:49
DX: Z02.89 Encounter for other administrative examinations (principal); Z88.5 Allergy status to narcotic agent
CPT/HCPCS: 99283; A9270

== ENCOUNTER 2021-10-23 04:00 | Inpatient (IN) | payer SELFPAY ==
[2021-10-23] MEDS ORDERED: Ondansetron 4 MG/2 ML SDV IVPUSH ONE (04:10)
[2021-10-23] MEDS ORDERED: LORazepam 2 MG/ML SDV IVPUSH ONE ×2 (04:10→06:44)
[2021-10-23] MEDS ORDERED: Sodium Chloride 0.9% 2.5 ML Syringe FLUSH PRN (04:10)
[2021-10-23] MEDS ORDERED: Sodium Chloride 0.9% 10 ML Syringe FLUSH PRN (04:10)
[2021-10-23] MEDS ORDERED: Thiamine 100 MG in Sodium Chloride 0.9% 100 ML IV ONE (04:12)
--- NOTE | 2021-10-23 04:14 | EDM.PDOC ---
ED HPI GENERAL MEDICAL PROBLEM - General Stated Complaint: POSSIBLE SEIZURE Time Seen by Provider: 10/23/21 04:05 - History of Present Illness INITIAL COMMENTS - FREE TEXT/NARRATIVE: History of present illness: [] Patient says he fell earlier but does not really remember it well. He denies any injury. He may have had a seizure. He is tremulous. He is nauseated and vomiting. He is confused somewhat but oriented x4. He says he does not know when his last drink was when he likes all this is come about because he stopped drinking. He was admitted overnight in the July of this year and I reviewed that record. He was in alcohol withdrawal at that time. He did not follow-up with AA or detox center. He started drinking when he was 13 years old and cannot count the number times and has had trouble with withdrawal symptoms. He has never been to formal inpatient detox facility. Review of systems: As per history of present illness and below otherwise all systems reviewed and negative. Past medical history: As per history of present illness and as reviewed below otherwise noncontributory. Surgical history: As per history of present illness and as reviewed below otherwise noncontributory. Social history: No reported history of drug or alcohol abuse. Family history: As per history of present illness and as reviewed below otherwise noncontributory. Physical exam: Constitutional - well developed, well-nourished and in no acute distress HEENT - normocephalic, no evidence of trauma - external nose and mouth normal - no mass in neck and no JVD - mucosae moist EYES - full EOM, PERRL, no icterus - no evidence of inflammation, injection, or drainage Respiratory - no respiratory distress, equal bilateral expansion, lungs clear to auscultation and no abnormal lung sounds Cardiovascular - Regular Rhythm with S1 and S2 appreciated and no murmur, gallop or rub. GI - abdomen soft without distension or organomegaly - normal bowel sounds - no guard or rebound Musculoskeletal no gross deformity of long bones or joints - no tenderness, swelling or edema Neurologic - Alert and oriented times four - CN II-XII grossly intact - motor sensory symmetrically normal but coarse tremor. Psychiatric - appropriate mood and affect with normal thought content Hematologic - No petechiae or purpura - mucosa appropriate color and sclera not pale - normal nail bed color and refill Integument - no rash or evidence of trauma - normal turgor Diagnostics: [] Therapeutics: [] Impression: [] Plan: [] Definitive disposition and diagnosis as appropriate pending reevaluation and review of above. left lower leg Pain Score (Numeric/FACES): 10 - Related Data Allergies Allergy/AdvReac Type Severity Reaction Status Date / Time hydrocodone Allergy Intermediate Vomiting Verified 10/23/21 04:11 Home Meds: Home Meds . [No Known Home Meds] 10/23/21 [History] Past Medical History - Past Health History Medical/Surgical History: Denies Medical/Surgical History HEENT History: Reports: Other (See Below) Other HEENT History: Deviated Septum, season allergies Cardiovascular History: Reports: None Respiratory History: Reports: None Gastrointestinal History: Reports: None Genitourinary History: Reports: None Musculoskeletal History: Reports: Fracture, Other (See Below) Other Musculoskeletal History: Shattered thumb from a fall Neurological History: Reports: Concussion Psychiatric History: Reports: Addiction, Anxiety, Depression Endocrine/Metabolic History: Reports: None Insulin Pump Model and Human Resource Consultant: N/A Hematologic History: Reports: None Immunologic History: Reports: None Oncologic (Cancer) History: Reports: None Dermatologic History: Reports: None - Infectious Disease History Infectious Disease History: Reports: Chicken Pox, Mononucleosis, Novel Coronavirus - Past Surgical History Head Surgeries/Procedures: Reports: None HEENT Surgical History: Reports: None Cardiovascular Surgical History: Reports: None GI Surgical History: Reports: None Musculoskeletal Surgical History: Reports: Other (See Below) Other Musculoskeletal Surgeries/Procedures:: Right Thumb surgery Social & Family History - Family History Family Medical History: No Pertinent Family History - Caffeine Use Caffeine Use: Reports: Soda - Living Situation & Occupation Living situation: Reports: Occupation: Unemployed ED ROS GENERAL - Review of Systems Review Of Systems: Comprehensive ROS is negative, except as noted in HPI. ED EXAM, GENERAL - Physical Exam Exam: See Below Free Text/Narrative:: My physical exam is in the HPI Course - Vital Signs Last Recorded V/S: Last Vital Signs Temp 36.4 C 10/23/21 04:08 Pulse 113 H 10/23/21 05:37 Resp 18 10/23/21 05:37 BP 169/99 H 10/23/21 05:37 Pulse Ox 98 10/23/21 05:37 - Orders/Labs/Meds Orders: Active Orders 24 hr Category Date Time Status Admission Status [Patient Status] [ADT] Stat ADT 10/23/21 06:30 Active DRUG SCREEN, URINE [URCHEM] Stat Lab 10/23/21 04:11 Ordered Sodium Chloride 0.9% [Normal Saline] 1,000 ml Med 10/23/21 04:15 Active IV ASDIRECTED Sodium Chloride 0.9% [Saline Flush] Med 10/23/21 04:10 Active 10 ml FLUSH ASDIRECTED PRN Sodium Chloride 0.9% [Saline Flush] Med 10/23/21 04:10 Active 2.5 ml FLUSH ASDIRECTED PRN Saline Lock Insert [OM.PC] Stat Oth 10/23/21 04:11 Ordered Medication Orders Sodium Chloride (Normal Saline) 1,000 mls @ 150 mls/hr IV ASDIRECTED COLEEN Last Admin: 10/23/21 04:32 Dose: 150 mls/hr Documented by: LEWILAC Sodium Chloride (Sodium Chloride 0.9% 10 Ml Syringe) 10 ml FLUSH ASDIRECTED PRN PRN Reason: Keep Vein Open Last Admin: 10/23/21 04:35 Dose: 10 ml Documented by: NASEEMILAC Sodium Chloride (Sodium Chloride 0.9% 2.5 Ml Syringe) 2.5 ml FLUSH ASDIRECTED PRN PRN Reason: Keep Vein Open Last Admin: 10/23/21 04:34 Dose: 2.5 ml Documented by: YIFAN Labs: Laboratory Tests 10/23/21 10/23/21 10/23/21 Range/Units 04:49 04:49 05:11 WBC 11.96 H (4.0-11.0) K/uL RBC 5.16 (4.50-5.90) M/uL Hgb 16.1 (13.0-17.0) g/dL Hct 44.3 (38.0-50.0) % MCV 85.9 (80.0-98.0) fL MCH 31.2 (27.0-32.0) pg MCHC 36.3 (31.0-37.0) g/dL RDW Std Deviation 39.1 (28.0-62.0) fl RDW Coeff of Joseline 13 (11.0-15.0) % Plt Count 103 L (150-400) K/uL MPV 10.90 (7.40-12.00) fL Neut % (Auto) 85.8 H (48.0-80.0) % Lymph % (Auto) 6.7 L (16.0-40.0) % [place] % (Auto) 7.4 (0.0-15.0) % Eos % (Auto) 0.0 (0.0-7.0) % Baso % (Auto) 0.1 (0.0-1.5) % Neut # (Auto) 10.3 H (1.4-5.7) K/uL Lymph # (Auto) 0.8 (0.6-2.4) K/uL [place] # (Auto) 0.9 H (0.0-0.8) K/uL Eos # (Auto) 0.0 (0.0-0.7) K/uL Baso # (Auto) 0.0 (0.0-0.1) K/uL Nucleated RBC % 0.0 /100WBC Nucleated RBCs # 0 K/uL Sodium 132 L (136-148) mmol/L Potassium 3.1 L (3.5-5.1) mmol/L Chloride 88 L (98-107) mmol/L Carbon Dioxide 26.8 (21.0-32.0) mmol/L BUN 9 (7.0-18.0) mg/dL Creatinine 1.2 (0.8-1.3) mg/dL Est Cr Clr Drug Dosing 93.24 mL/min Estimated GFR (MDRD) > 60.0 ml/min Glucose 156 H (74-106) mg/dL Calcium 8.9 (8.5-10.1) mg/dL Magnesium 1.2 L (1.8-2.4) mg/dL Total Bilirubin 1.5 H (0.2-1.0) mg/dL AST 170 H (15-37) IU/L ALT 76 H (14-63) IU/L Alkaline Phosphatase 78 (46-116) U/L Total Protein 8.2 (6.4-8.2) g/dL Albumin 4.0 (3.4-5.0) g/dL Globulin 4.2 H (2.6-4.0) g/dL Albumin/Globulin Ratio 1.0 (0.9-1.6) Ethyl Alcohol 45 mg/dL SARS-CoV-2 RNA (HILDA) NEGATIVE (NEGATIVE) Meds: Medications Generic Name Dose Route Start Last Admin Trade Name Freq PRN Reason Stop Dose Admin Sodium Chloride 1,000 mls @ 150 mls/hr 10/23/21 04:15 10/23/21 04:32 Normal Saline IV 150 mls/hr ASDIRECTED COLEEN Administration Sodium Chloride 10 ml 10/23/21 04:10 10/23/21 04:35 Sodium Chloride 0.9% 10 Ml Syringe FLUSH 10 ml ASDIRECTED PRN Administration Keep Vein Open Sodium Chloride 2.5 ml 10/23/21 04:10 10/23/21 04:34 Sodium Chloride 0.9% 2.5 Ml Syringe FLUSH 2.5 ml ASDIRECTED PRN Administration Keep Vein Open Discontinued Medications Generic Name Dose Route Start Last Admin Trade Name Freq PRN Reason Stop Dose Admin Chlordiazepoxide HCl 25 mg 10/23/21 05:17 10/23/21 05:35 Chlordiazepoxide 25 Mg Cap PO 10/23/21 05:18 25 mg ONETIME ONE Administration Thiamine HCl 100 mg/ Sodium 101 mls @ 202 mls/hr 10/23/21 04:12 Chloride IV 10/23/21 04:13 ONETIME ONE Lorazepam 2 mg 10/23/21 04:10 10/23/21 04:34 Lorazepam 2 Mg/Ml Sdv IVPUSH 10/23/21 04:11 2 mg ONETIME ONE Administration Ondansetron HCl 4 mg 10/23/21 04:10 10/23/21 04:32 Ondansetron 4 Mg/2 Ml Sdv IVPUSH 10/23/21 04:11 4 mg ONETIME ONE Administration Potassium Chloride 40 meq 10/23/21 05:37 Potassium Chloride 20 Meq Tab.Er PO 10/23/21 05:38 ONETIME ONE Thiamine HCl 100 mg 10/23/21 04:44 10/23/21 05:11 Thiamine 200 Mg/2 Ml Mdv IVPUSH 10/23/21 04:45 100 mg ONETIME ONE Administration - Re-Assessments/Exams Free Text/Narrative Re-Assessment/Exam: 10/23/21 05:18 CIWA reported by RN 23 - visible sweats but no longer vomiting 10/23/21 06:32 C was 17. Discussed with Dr. Carvalho and admitted to the hospital for further care. Departure - Departure Time of Disposition: 06:33 Disposition: Admitted As Inpatient 68 Condition: Fair Clinical Impression: Alcohol withdrawal, Tremor, Hypertension, Tachycardia - Discharge Information Referrals: PCP,None [Primary Care Provider] - Sepsis Event Note (ED) - Evaluation Sepsis Screening Result: No Definite Risk - Focused Exam Vital Signs: Vital Signs Temp Pulse Resp BP Pulse Ox 10/23/21 05:37 113 H 18 169/99 H 98 10/23/21 04:08 36.4 C 134 H 20 169/109 H 99 - My Orders Last 24 Hours: My Active Orders 10/23/21 04:10 Sodium Chloride 0.9% [Saline Flush] 10 ml FLUSH ASDIRECTED PRN Sodium Chloride 0.9% [Saline Flush] 2.5 ml FLUSH ASDIRECTED PRN 10/23/21 04:11 DRUG SCREEN, URINE [URCHEM] Stat Saline Lock Insert [OM.PC] Stat 10/23/21 04:15 Sodium Chloride 0.9% [Normal Saline] 1,000 ml IV ASDIRECTED 10/23/21 06:30 Admission Status [Patient Status] [ADT] Stat - Assessment/Plan Last 24 Hours: My Active Orders 10/23/21 04:10 Sodium Chloride 0.9% [Saline Flush] 10 ml FLUSH ASDIRECTED PRN Sodium Chloride 0.9% [Saline Flush] 2.5 ml FLUSH ASDIRECTED PRN 10/23/21 04:11 DRUG SCREEN, URINE [URCHEM] Stat Saline Lock Insert [OM.PC] Stat 10/23/21 04:15 Sodium Chloride 0.9% [Normal Saline] 1,000 ml IV ASDIRECTED 10/23/21 06:30 Admission Status [Patient Status] [ADT] Stat
[2021-10-23] MEDS: Sodium Chloride 0.9% 1,000 ML IV SCH (04:32)
[2021-10-23] MEDS ORDERED: Thiamine 200 MG/2 ML MDV IVPUSH ONE (04:44)
[2021-10-23 05:17] LABS: BLOOD UREA NITROGEN,BUN 9 mg/dL (7.0-18.0); CARBON DIOXIDE,CO2 26.8 mmol/L (21.0-32.0); CHLORIDE,CL 88 mmol/L (98-107); GLUCOSE RANDOM 156 mg/dL (74-106); POTASSIUM,K 3.1 mmol/L (3.5-5.1); SODIUM,NA 132 mmol/L (136-148)
[2021-10-23] MEDS ORDERED: chlordiazePOXIDE 25 MG Cap PO ONE (05:17)
[2021-10-23] MEDS ORDERED: Potassium Chloride 20 MEQ Tab.ER PO ONE (05:37)
[2021-10-23] MEDS ORDERED: Ondansetron 4 MG/2 ML SDV IVPUSH PRN (09:18)
--- NOTE | 2021-10-23 09:59 | PCM.HP.2 ---
<Sonya Biggs - Last Filed: 10/23/21 11:11> H&P History of Present Illness - General Date of Service: 10/23/21 Admit Problem/Dx: Admission Diagnosis/Problem Admission Diagnosis/Problem Tremor of both hands - History of Present Illness Initial Comments - Free Text/Narative: The patient is a 31-year-old male, on day 1 of service, who has a significant past medical history of seasonal allergies, depressive episodes, and anxiety, who was admitted to the medical floor due to alcohol withdrawal symptoms. The patient states that 3 days ago was his last drink and 48 hours after that he started to have tremulousness, confusion, and may have had a seizure. He is not sure if he lost consciousness but remembers waking up on the floor and not being himself, and that he loss of bladder and bowel control, felt nauseous but did not vomit, and felt cold. He admits that he has had a drinking problem since he was 13 years old, and has tried outpatient addiction counseling and treatment which did not work. He has never been part of the inpatient alcohol addiction rehabilitation program. He recently was from his and feels that his drinking has increased since then. His last admission for similar withdrawal symptoms was in July 2021. He denies chest pain, pa lpitations, abdominal pain, audiovisual hallucinations, thoughts of hurting himself or others, or other addictions or psychiatric conditions. In regards to his social history he admits to using ZYN nicotine patches, but denies smoking cigarettes and recreational drug use. His family history is significant for alcoholism in his father. He has allergies to hydrocodone. He has no other complaints at this time. On CBC, his white blood cell count is 11.96, hemoglobin is 16.1, hematocrit is 44.3, and platelet count is 103. On CMP, his sodium is 132, potassium is 3.1, chloride is 88, carbon dioxide is 26.8, BUN is 9, creatinine is 1.2, magnesium is 1.2, bilirubin is 1.5, AST is 170, and ALT is 76. In the emergency department, he received a 1000 mL bolus of normal saline, he also received Librium once and thiamine on multiple occasions, Ativan 2 mg once, and potassium chloride once 40 mEq. He also had the above blood work listed done while he was in the ED. left lower leg Pain Score (Numeric/FACES): 10 - Related Data Allergies/Adverse Reactions: Allergies Allergy/AdvReac Type Severity Reaction Status Date / Time hydrocodone Allergy Intermediate Vomiting Verified 10/23/21 04:11 Home Medications: Home Meds . [No Known Home Meds] 10/23/21 [History] Past Medical History - Past Health History Medical/Surgical History: Denies Medical/Surgical History HEENT History: Reports: Other (See Below) Other HEENT History: Deviated Septum, season allergies Cardiovascular History: Reports: None Respiratory History: Reports: None Gastrointestinal History: Reports: None Genitourinary History: Reports: None Musculoskeletal History: Reports: Fracture, Other (See Below) Other Musculoskeletal History: Shattered thumb from a fall Neurological History: Reports: Concussion Psychiatric History: Reports: Addiction, Anxiety, Depression Endocrine/Metabolic History: Reports: None Insulin Pump Model and Agent Broker: N/A Hematologic History: Reports: None Immunologic History: Reports: None Oncologic (Cancer) History: Reports: None Dermatologic History: Reports: None - Infectious Disease History Infectious Disease History: Reports: Chicken Pox, Mononucleosis, Novel Coronavir us - Past Surgical History Head Surgeries/Procedures: Reports: None HEENT Surgical History: Reports: None Cardiovascular Surgical History: Reports: None GI Surgical History: Reports: None Musculoskeletal Surgical History: Reports: Other (See Below) Other Musculoskeletal Surgeries/Procedures:: Right Thumb surgery Social & Family History - Family History Family Medical History: No Pertinent Family History - Tobacco Use Tobacco Use Status *Q: Never Tobacco User - Caffeine Use Caffeine Use: Reports: Soda - Recreational Drug Use Recreational Drug Use: No - Living Situation & Occupation Living situation: Reports: Occupation: Unemployed H&P Review of Systems - Review of Systems: Review Of Systems: See Below General: Reports: Chills, Fatigue. Denies: Fever, Weakness HEENT: Reports: Headaches. Denies: Sinus Congestion Pulmonary: Denies: Shortness of Breath, Wheezing Cardiovascular: Denies: Chest Pain, Palpitations Gastrointestinal: Reports: Nausea, Vomiting. Denies: Abdominal Pain Genitourinary: Denies: Dysuria Psychiatric: Reports: Anxiety Neurological: Reports: Confusion, Tremors. Denies: Numbness, Trouble Speaking, Difficulty Walking Exam - Exam Exam: See Below - Vital Signs Vital Signs: Last Vital Signs Temp 97.8 F 10/23/21 07:20 Pulse 121 H 10/23/21 07:20 Resp 16 10/23/21 07:20 BP 151/92 H 10/23/21 07:20 Pulse Ox 95 10/23/21 07:20 Weight: 160 lb - Exam General: Alert, Oriented, Lethargic HEENT: EOMI, Other (Dry mucous membranes) Neck: Trachea Midline Lungs: Clear to Auscultation, Normal Respiratory Effort Cardiovascular: Regular Rate, Regular Rhythm GI/Abdominal Exam: Normal Bowel Sounds, Soft, Non-Tender Neurological: Other (Hand tremors) Neuro Extensive - Mental Status: Alert, Oriented x3 Neuro Extensive - Motor, Sensory, Reflexes: CN II-XII Intact - Patient Data Lab Results Last 24 hrs: Laboratory Results - last 24 hr 10/23/21 10/23/21 10/23/21 Range/Units 04:49 04:49 05:11 WBC 11.96 H (4.0-11.0) K/uL RBC 5.16 (4.50-5.90) M/uL Hgb 16.1 (13.0-17.0) g/dL Hct 44.3 (38.0-50.0) % MCV 85.9 (80.0-98.0) fL MCH 31.2 (27.0-32.0) pg MCHC 36.3 (31.0-37.0) g/dL RDW Std Deviation 39.1 (28.0-62.0) fl RDW Coeff of Joseline 13 (11.0-15.0) % Plt Count 103 L (150-400) K/uL MPV 10.90 (7.40-12.00) fL Neut % (Auto) 85.8 H (48.0-80.0) % Lymph % (Auto) 6.7 L (16.0-40.0) % [place] % (Auto) 7.4 (0.0-15.0) % Eos % (Auto) 0.0 (0.0-7.0) % Baso % (Auto) 0.1 (0.0-1.5) % Neut # (Auto) 10.3 H (1.4-5.7) K/uL Lymph # (Auto) 0.8 (0.6-2.4) K/uL [place] # (Auto) 0.9 H (0.0-0.8) K/uL Eos # (Auto) 0.0 (0.0-0.7) K/uL Baso # (Auto) 0.0 (0.0-0.1) K/uL Nucleated RBC % 0.0 /100WBC Nucleated RBCs # 0 K/uL Sodium 132 L (136-148) mmol/L Potassium 3.1 L (3.5-5.1) mmol/L Chloride 88 L (98-107) mmol/L Carbon Dioxide 26.8 (21.0-32.0) mmol/L BUN 9 (7.0-18.0) mg/dL Creatinine 1.2 (0.8-1.3) mg/dL Est Cr Clr Drug Dosing 93.24 mL/min Estimated GFR (MDRD) > 60.0 ml/min Glucose 156 H (74-106) mg/dL Calcium 8.9 (8.5-10.1) mg/dL Magnesium 1.2 L (1.8-2.4) mg/dL Total Bilirubin 1.5 H (0.2-1.0) mg/dL AST 170 H (15-37) IU/L ALT 76 H (14-63) IU/L Alkaline Phosphatase 78 (46-116) U/L Total Protein 8.2 (6.4-8.2) g/dL Albumin 4.0 (3.4-5.0) g/dL Globulin 4.2 H (2.6-4.0) g/dL Albumin/Globulin Ratio 1.0 (0.9-1.6) Urine Opiates Screen (NEGATIVE) Ur Oxycodone Screen (NEGATIVE) Urine Methadone Screen (NEGATIVE) Ur Barbiturates Screen (NEGATIVE) Ur Phencyclidine Scrn (NEGATIVE) Ur Amphetamine Screen (NEGATIVE) U Methamphetamines Scrn (NEGATIVE) U Benzodiazepines Scrn (NEGATIVE) U Cocaine Metab Screen (NEGATIVE) U Marijuana (THC) Screen (NEGATIVE) Ethyl Alcohol 45 mg/dL SARS-CoV-2 RNA (HILDA) NEGATIVE (NEGATIVE) 10/23/21 Range/Units 07:30 WBC (4.0-11.0) K/uL RBC (4.50-5.90) M/uL Hgb (13.0-17.0) g/dL Hct (38.0-50.0) % MCV (80.0-98.0) fL MCH (27.0-32.0) pg MCHC (31.0-37.0) g/dL RDW Std Deviation (28.0-62.0) fl RDW Coeff of Joseline (11.0-15.0) % Plt Count (150-400) K/uL MPV (7.40-12.00) fL Neut % (Auto) (48.0-80.0) % Lymph % (Auto) (16.0-40.0) % [place] % (Auto) (0.0-15.0) % Eos % (Auto) (0.0-7.0) % Baso % (Auto) (0.0-1.5) % Neut # (Auto) (1.4-5.7) K/uL Lymph # (Auto) (0.6-2.4) K/uL [place] # (Auto) (0.0-0.8) K/uL Eos # (Auto) (0.0-0.7) K/uL Baso # (Auto) (0.0-0.1) K/uL Nucleated RBC % /100WBC Nucleated RBCs # K/uL Sodium (136-148) mmol/L Potassium (3.5-5.1) mmol/L Chloride (98-107) mmol/L Carbon Dioxide (21.0-32.0) mmol/L BUN (7.0-18.0) mg/dL Creatinine (0.8-1.3) mg/dL Est Cr Clr Drug Dosing mL/min Estimated GFR (MDRD) ml/min Glucose (74-106) mg/dL Calcium (8.5-10.1) mg/dL Magnesium (1.8-2.4) mg/dL Total Bilirubin (0.2-1.0) mg/dL AST (15-37) IU/L ALT (14-63) IU/L Alkaline Phosphatase (46-116) U/L Total Protein (6.4-8.2) g/dL Albumin (3.4-5.0) g/dL Globulin (2.6-4.0) g/dL Albumin/Globulin Ratio (0.9-1.6) Urine Opiates Screen NEGATIVE (NEGATIVE) Ur Oxycodone Screen NEGATIVE (NEGATIVE) Urine Methadone Screen NEGATIVE (NEGATIVE) Ur Barbiturates Screen NEGATIVE (NEGATIVE) Ur Phencyclidine Scrn NEGATIVE (NEGATIVE) Ur Amphetamine Screen NEGATIVE (NEGATIVE) U Methamphetamines Scrn NEGATIVE (NEGATIVE) U Benzodiazepines Scrn NEGATIVE (NEGATIVE) U Cocaine Metab Screen NEGATIVE (NEGATIVE) U Marijuana (THC) Screen NEGATIVE (NEGATIVE) Ethyl Alcohol mg/dL SARS-CoV-2 RNA (HILDA) (NEGATIVE) Result Diagrams: 10/23/21 04:49 10/23/21 04:49 Sepsis Event Note - Evaluation Sepsis Screening Result: No Definite Risk - Focused Exam Vital Signs: Vital Signs Temp Pulse Resp BP Pulse Ox 10/23/21 07:20 97.8 F 121 H 16 151/92 H 95 10/23/21 07:17 104 H 18 167/94 H 99 10/23/21 06:51 122 H 18 166/94 H 97 10/23/21 05:37 113 H 18 169/99 H 98 10/23/21 04:08 97.6 F 134 H 20 169/109 H 99 - Problem List (1) Hypomagnesemia SNOMED Code(s): 279620586 ICD Code: E83.42 - HYPOMAGNESEMIA Status: Acute Current Visit: Yes (2) Hypokalemia SNOMED Code(s): 41025723 ICD Code: E87.6 - HYPOKALEMIA Status: Acute Current Visit: Yes (3) Alcohol withdrawal SNOMED Code(s): 588568742 ICD Code: F10.239 - ALCOHOL DEPENDENCE WITH WITHDRAWAL, UNSPECIFIED Status: Acute Current Visit: Yes (4) Tremor SNOMED Code(s): 22092181 ICD Code: R25.1 - TREMOR, UNSPECIFIED Status: Acute Current Visit: Yes (5) Alcohol abuse SNOMED Code(s): 47127148 ICD Code: F10.10 - ALCOHOL ABUSE, UNCOMPLICATED Status: Chronic Current Visit: No (6) Anxiety SNOMED Code(s): 77050285 ICD Code: F41.9 - ANXIETY DISORDER, UNSPECIFIED Status: Chronic Current Visit: No Problem List Initiated/Reviewed/Updated: Yes Orders Last 24hrs: Active Orders 24 hr Category Date Time Status Admission Status [Patient Status] [ADT] Stat ADT 10/23/21 06:30 Active Clear Liquid Diet [DIET] Diet 10/23/21 Lunch Ordered CBC WITH AUTO DIFF [HEME] AM Lab 10/24/21 05:11 Ordered CBC WITH AUTO DIFF [HEME] AM Lab 10/25/21 05:11 Ordered CBC WITH AUTO DIFF [HEME] AM Lab 10/26/21 05:11 Ordered CBC WITH AUTO DIFF [HEME] AM Lab 10/27/21 05:11 Ordered CBC WITH AUTO DIFF [HEME] AM Lab 10/28/21 05:11 Ordered CMP [COMPREHENSIVE METABOLIC PN,CMP] [CHEM] AM Lab 10/24/21 05:11 Ordered CMP [COMPREHENSIVE METABOLIC PN,CMP] [CHEM] AM Lab 10/25/21 05:11 Ordered CMP [COMPREHENSIVE METABOLIC PN,CMP] [CHEM] AM Lab 10/26/21 05:11 Ordered CMP [COMPREHENSIVE METABOLIC PN,CMP] [CHEM] AM Lab 10/27/21 05:11 Ordered CMP [COMPREHENSIVE METABOLIC PN,CMP] [CHEM] AM Lab 10/28/21 05:11 Ordered Enoxaparin [Lovenox] Med 10/23/21 10:00 Ordered 40 mg SUBCUT Q24H Folic Acid Med 10/23/21 10:00 Ordered 1 mg IV DAILY LORazepam [Ativan] Med 10/23/21 09:52 Ordered See Protocol IVPUSH Q4H PRN Ondansetron [Zofran] Med 10/23/21 09:18 Active 4 mg IVPUSH Q4H PRN Pantoprazole [ProTONIX] Med 10/23/21 10:00 Ordered 40 mg IVPUSH DAILY Sodium Chloride 0.9% [Normal Saline] 1,000 ml Med 10/23/21 04:15 Active IV ASDIRECTED Sodium Chloride 0.9% [Saline Flush] Med 10/23/21 04:10 Active 10 ml FLUSH ASDIRECTED PRN Sodium Chloride 0.9% [Saline Flush] Med 10/23/21 04:10 Active 2.5 ml FLUSH ASDIRECTED PRN Thiamine [Vitamin B-1] 100 mg Med 10/24/21 09:00 Ordered Sodium Chloride 0.9% [Normal Saline] 100 ml IV DAILY Saline Lock Insert [OM.PC] Stat Oth 10/23/21 04:11 Ordered Code Status [Resuscitation Status] Routine Resus Stat 10/23/21 09:48 Ordered Medication Orders Enoxaparin Sodium (Enoxaparin 40 Mg/0.4 Ml Syringe) 40 mg SUBCUT Q24H [facility] Folic Acid (Folic Acid 50 Mg/10 Ml Mdv) 1 mg IV DAILY [facility] Sodium Chloride (Normal Saline) 1,000 mls @ 150 mls/hr IV ASDIRECTED [facility] Last Admin: 10/23/21 04:32 Dose: 150 mls/hr Documented by: YIFAN Thiamine HCl 100 mg/ Sodium (Chloride) 101 mls @ 202 mls/hr IV DAILY [facility] Lorazepam (Lorazepam 2 Mg/Ml Sdv) 0 mg IVPUSH Q4H PRN; Protocol PRN Reason: Withdrawal Symptoms Ondansetron HCl (Ondansetron 4 Mg/2 Ml Sdv) 4 mg IVPUSH Q4H PRN PRN Reason: Nausea Last Admin: 10/23/21 09:52 Dose: 4 mg Documented by: JEANNINE Pantoprazole Sodium (Pantoprazole 40 Mg/10 Ml Syringe) 40 mg IVPUSH DAILY [facility] Sodium Chloride (Sodium Chloride 0.9% 10 Ml Syringe) 10 ml FLUSH ASDIRECTED PRN PRN Reason: Keep Vein Open Last Admin: 10/23/21 04:35 Dose: 10 ml Documented by: YIFAN Sodium Chloride (Sodium Chloride 0.9% 2.5 Ml Syringe) 2.5 ml FLUSH ASDIRECTED PRN PRN Reason: Keep Vein Open Last Admin: 10/23/21 04:34 Dose: 2.5 ml Documented by: YIFAN Assessment/Plan Comment:: Admit the patient to the medical floor, vitals per unit routine, activity up ad thiago., clear liquid diet, DVT prophylaxis with Lovenox 40 mg subcutaneously once a day, GI prophylaxis with pantoprazole 40 mg once a day, the patient is full code 1. Alcohol withdrawal symptoms -The patient is on CIWA protocol, if his levels fall above 8 he will be supplied with Ativan to relieve symptoms -The patient says he currently feels slightly nauseous but is hungry so we will start with a clear liquid diet and progress as tolerated, Don is on board -We will continue to supply the patient with thiamine on a daily basis, last dose of 100 mg IV -We have initiated folic acid 1 mg -Monitor with daily CBC/CMP 2. Hypokalemia -The patient was given potassium chloride once in the ED, 40 mEq -We will continue to monitor potassium levels with daily CMP 3. Hypomagnesemia -The patient was given a 2 g IV loading dose of magnesium sulfate -We will continue to measure magnesium levels daily and replete as needed 4. Past medical history of anxiety -The patient was given Librium in the ED, and we have lorazepam on board when h is CIWA scores reach above 8 -The patient admits he takes buspirone for this condition but his med list has yet to be reconciled, will reevaluate need for this medication <Marty Carvalho - Last Filed: 10/23/21 11:35> H&P History of Present Illness - General Admit Problem/Dx: Admission Diagnosis/Problem Admission Diagnosis/Problem Tremor of both hands Exam - Vital Signs Vital Signs: Last Vital Signs Temp 97.8 F 10/23/21 11:20 Pulse 95 10/23/21 11:20 Resp 18 10/23/21 11:20 BP 182/90 H 10/23/21 11:20 Pulse Ox 96 10/23/21 11:20 - Patient Data Lab Results Last 24 hrs: Laboratory Results - last 24 hr 10/23/21 10/23/21 10/23/21 Range/Units 04:49 04:49 05:11 WBC 11.96 H (4.0-11.0) K/uL RBC 5.16 (4.50-5.90) M/uL Hgb 16.1 (13.0-17.0) g/dL Hct 44.3 (38.0-50.0) % MCV 85.9 (80.0-98.0) fL MCH 31.2 (27.0-32.0) pg MCHC 36.3 (31.0-37.0) g/dL RDW Std Deviation 39.1 (28.0-62.0) fl RDW Coeff of Joseline 13 (11.0-15.0) % Plt Count 103 L (150-400) K/uL MPV 10.90 (7.40-12.00) fL Neut % (Auto) 85.8 H (48.0-80.0) % Lymph % (Auto) 6.7 L (16.0-40.0) % [place] % (Auto) 7.4 (0.0-15.0) % Eos % (Auto) 0.0 (0.0-7.0) % Baso % (Auto) 0.1 (0.0-1.5) % Neut # (Auto) 10.3 H (1.4-5.7) K/uL Lymph # (Auto) 0.8 (0.6-2.4) K/uL [place] # (Auto) 0.9 H (0.0-0.8) K/uL Eos # (Auto) 0.0 (0.0-0.7) K/uL Baso # (Auto) 0.0 (0.0-0.1) K/uL Nucleated RBC % 0.0 /100WBC Nucleated RBCs # 0 K/uL Sodium 132 L (136-148) mmol/L Potassium 3.1 L (3.5-5.1) mmol/L Chloride 88 L (98-107) mmol/L Carbon Dioxide 26.8 (21.0-32.0) mmol/L BUN 9 (7.0-18.0) mg/dL Creatinine 1.2 (0.8-1.3) mg/dL Est Cr Clr Drug Dosing 93.24 mL/min Estimated GFR (MDRD) > 60.0 ml/min Glucose 156 H (74-106) mg/dL Calcium 8.9 (8.5-10.1) mg/dL Magnesium 1.2 L (1.8-2.4) mg/dL Total Bilirubin 1.5 H (0.2-1.0) mg/dL AST 170 H (15-37) IU/L ALT 76 H (14-63) IU/L Alkaline Phosphatase 78 (46-116) U/L Total Protein 8.2 (6.4-8.2) g/dL Albumin 4.0 (3.4-5.0) g/dL Globulin 4.2 H (2.6-4.0) g/dL Albumin/Globulin Ratio 1.0 (0.9-1.6) Urine Opiates Screen (NEGATIVE) Ur Oxycodone Screen (NEGATIVE) Urine Methadone Screen (NEGATIVE) Ur Barbiturates Screen (NEGATIVE) Ur Phencyclidine Scrn (NEGATIVE) Ur Amphetamine Screen (NEGATIVE) U Methamphetamines Scrn (NEGATIVE) U Benzodiazepines Scrn (NEGATIVE) U Cocaine Metab Screen (NEGATIVE) U Marijuana (THC) Screen (NEGATIVE) Ethyl Alcohol 45 mg/dL SARS-CoV-2 RNA (HILDA) NEGATIVE (NEGATIVE) 10/23/21 Range/Units 07:30 WBC (4.0-11.0) K/uL RBC (4.50-5.90) M/uL Hgb (13.0-17.0) g/dL Hct (38.0-50.0) % MCV (80.0-98.0) fL MCH (27.0-32.0) pg MCHC (31.0-37.0) g/dL RDW Std Deviation (28.0-62.0) fl RDW Coeff of Joseline (11.0-15.0) % Plt Count (150-400) K/uL MPV (7.40-12.00) fL Neut % (Auto) (48.0-80.0) % Lymph % (Auto) (16.0-40.0) % [place] % (Auto) (0.0-15.0) % Eos % (Auto) (0.0-7.0) % Baso % (Auto) (0.0-1.5) % Neut # (Auto) (1.4-5.7) K/uL Lymph # (Auto) (0.6-2.4) K/uL [place] # (Auto) (0.0-0.8) K/uL Eos # (Auto) (0.0-0.7) K/uL Baso # (Auto) (0.0-0.1) K/uL Nucleated RBC % /100WBC Nucleated RBCs # K/uL Sodium (136-148) mmol/L Potassium (3.5-5.1) mmol/L Chloride (98-107) mmol/L Carbon Dioxide (21.0-32.0) mmol/L BUN (7.0-18.0) mg/dL Creatinine (0.8-1.3) mg/dL Est Cr Clr Drug Dosing mL/min Estimated GFR (MDRD) ml/min Glucose (74-106) mg/dL Calcium (8.5-10.1) mg/dL Magnesium (1.8-2.4) mg/dL Total Bilirubin (0.2-1.0) mg/dL AST (15-37) IU/L ALT (14-63) IU/L Alkaline Phosphatase (46-116) U/L Total Protein (6.4-8.2) g/dL Albumin (3.4-5.0) g/dL Globulin (2.6-4.0) g/dL Albumin/Globulin Ratio (0.9-1.6) Urine Opiates Screen NEGATIVE (NEGATIVE) Ur Oxycodone Screen NEGATIVE (NEGATIVE) Urine Methadone Screen NEGATIVE (NEGATIVE) Ur Barbiturates Screen NEGATIVE (NEGATIVE) Ur Phencyclidine Scrn NEGATIVE (NEGATIVE) Ur Amphetamine Screen NEGATIVE (NEGATIVE) U Methamphetamines Scrn NEGATIVE (NEGATIVE) U Benzodiazepines Scrn NEGATIVE (NEGATIVE) U Cocaine Metab Screen NEGATIVE (NEGATIVE) U Marijuana (THC) Screen NEGATIVE (NEGATIVE) Ethyl Alcohol mg/dL SARS-CoV-2 RNA (HILDA) (NEGATIVE) Result Diagrams: 10/23/21 04:49 10/23/21 04:49 Sepsis Event Note - Focused Exam Vital Signs: Vital Signs Temp Pulse Resp BP Pulse Ox 10/23/21 11:20 97.8 F 95 18 182/90 H 96 10/23/21 07:20 97.8 F 121 H 16 151/92 H 95 10/23/21 07:17 104 H 18 167/94 H 99 10/23/21 06:51 122 H 18 166/94 H 97 10/23/21 05:37 113 H 18 169/99 H 98 10/23/21 04:08 97.6 F 134 H 20 169/109 H 99 Problem List Initiated/Reviewed/Updated: Yes Orders Last 24hrs: Active Orders 24 hr Category Date Time Status Admission Status [Patient Status] [ADT] Stat ADT 10/23/21 06:30 Active Clear Liquid Diet [DIET] Diet 10/23/21 Lunch Active CBC WITH AUTO DIFF [HEME] AM Lab 10/24/21 05:11 Ordered CBC WITH AUTO DIFF [HEME] AM Lab 10/25/21 05:11 Ordered CBC WITH AUTO DIFF [HEME] AM Lab 10/26/21 05:11 Ordered CBC WITH AUTO DIFF [HEME] AM Lab 10/27/21 05:11 Ordered CBC WITH AUTO DIFF [HEME] AM Lab 10/28/21 05:11 Ordered CMP [COMPREHENSIVE METABOLIC PN,CMP] [CHEM] AM Lab 10/24/21 05:11 Ordered CMP [COMPREHENSIVE METABOLIC PN,CMP] [CHEM] AM Lab 10/25/21 05:11 Ordered CMP [COMPREHENSIVE METABOLIC PN,CMP] [CHEM] AM Lab 10/26/21 05:11 Ordered CMP [COMPREHENSIVE METABOLIC PN,CMP] [CHEM] AM Lab 10/27/21 05:11 Ordered CMP [COMPREHENSIVE METABOLIC PN,CMP] [CHEM] AM Lab 10/28/21 05:11 Ordered MAGNESIUM [CHEM] AM Lab 10/24/21 05:11 Ordered Enoxaparin [Lovenox] Med 10/23/21 10:00 Active 40 mg SUBCUT Q24H Folic Acid Med 10/23/21 10:00 Active 1 mg IV DAILY LORazepam [Ativan] Med 10/23/21 09:52 Active See Protocol IVPUSH Q4H PRN Magnesium Sulfate/Water [Magnesium Sulfate in Water 2 Med 10/23/21 10:54 Active GM/50 ML] 2 gm Premix Bag 1 bag IV ONETIME Ondansetron [Zofran] Med 10/23/21 09:18 Active 4 mg IVPUSH Q4H PRN Pantoprazole [ProTONIX] Med 10/23/21 10:00 Active 40 mg IVPUSH DAILY Sodium Chloride 0.9% [Normal Saline] 1,000 ml Med 10/23/21 04:15 Active IV ASDIRECTED Sodium Chloride 0.9% [Saline Flush] Med 10/23/21 04:10 Active 10 ml FLUSH ASDIRECTED PRN Sodium Chloride 0.9% [Saline Flush] Med 10/23/21 04:10 Active 2.5 ml FLUSH ASDIRECTED PRN Thiamine [Vitamin B-1] Med 10/24/21 09:00 Active 100 mg IVPUSH DAILY Saline Lock Insert [OM.PC] Stat Oth 10/23/21 04:11 Ordered Code Status [Resuscitation Status] Routine Resus Stat 10/23/21 09:48 Ordered Medication Orders Enoxaparin Sodium (Enoxaparin 40 Mg/0.4 Ml Syringe) 40 mg SUBCUT Q24H [facility] Last Admin: 10/23/21 10:24 Dose: 40 mg Documented by: JEANNINE Folic Acid (Folic Acid 50 Mg/10 Ml Mdv) 1 mg IV DAILY [facility] Last Admin: 10/23/21 10:24 Dose: 1 mg Documented by: JEANNINE Sodium Chloride (Normal Saline) 1,000 mls @ 150 mls/hr IV ASDIRECTED [facility] Last Admin: 10/23/21 04:32 Dose: 150 mls/hr Documented by: YIFAN Magnesium Sulfate 2 gm/ Premix 50 mls @ 50 mls/hr IV ONETIME ONE Stop: 10/23/21 11:53 Lorazepam (Lorazepam 2 Mg/Ml Sdv) 0 mg IVPUSH Q4H PRN; Protocol PRN Reason: Withdrawal Symptoms Last Admin: 10/23/21 10:34 Dose: 1 mg Documented by: JEANNINE Ondansetron HCl (Ondansetron 4 Mg/2 Ml Sdv) 4 mg IVPUSH Q4H PRN PRN Reason: Nausea Last Admin: 10/23/21 09:52 Dose: 4 mg Documented by: JEANNINE Pantoprazole Sodium (Pantoprazole 40 Mg/10 Ml Syringe) 40 mg IVPUSH DAILY [facility] Last Admin: 10/23/21 10:23 Dose: 40 mg Documented by: JEANNINE Sodium Chloride (Sodium Chloride 0.9% 10 Ml Syringe) 10 ml FLUSH ASDIRECTED PRN PRN Reason: Keep Vein Open Last Admin: 10/23/21 04:35 Dose: 10 ml Documented by: YIFAN Sodium Chloride (Sodium Chloride 0.9% 2.5 Ml Syringe) 2.5 ml FLUSH ASDIRECTED PRN PRN Reason: Keep Vein Open Last Admin: 10/23/21 04:34 Dose: 2.5 ml Documented by: YIFAN Thiamine HCl (Thiamine 200 Mg/2 Ml Mdv) 100 mg IVPUSH DAILY [facility] Assessment/Plan Comment:: I agree with the above assessement and plan. I will start pt on scheduled librium Q6hrs. He can taper the dose over the next couple of days. - Mortality Measure Prognosis:: Good
[2021-10-23] MEDS: Pantoprazole 40 MG/10 ML Syringe IVPUSH SCH (10:23)
[2021-10-23] MEDS: Folic Acid 50 MG/10 ML MDV IV SCH (10:24)
[2021-10-23] MEDS: Enoxaparin 40 MG/0.4 ML Syringe SUBCUT SCH (10:24)
[2021-10-23] MEDS: LORazepam 2 MG/ML SDV IVPUSH PRN ×4 (10:34→21:18)
[2021-10-23] MEDS ORDERED: Magnesium Sulfate/Water 2 GM in Premix Bag 1 BAG IV ONE (10:54)
[2021-10-23] MEDS: chlordiazePOXIDE 25 MG Cap PO SCH ×3 (12:35→23:58)
[2021-10-24] MEDS: Sodium Chloride 0.9% 1,000 ML IV SCH ×2 (01:08→09:48)
[2021-10-24] MEDS: LORazepam 2 MG/ML SDV IVPUSH PRN ×2 (03:42→09:34)
[2021-10-24] MEDS: chlordiazePOXIDE 25 MG Cap PO SCH ×2 (06:06→11:56)
[2021-10-24 08:02] LABS: BLOOD UREA NITROGEN,BUN 5 mg/dL (7.0-18.0); CARBON DIOXIDE,CO2 28.6 mmol/L (21.0-32.0); CHLORIDE,CL 100 mmol/L (98-107); GLUCOSE RANDOM 80 mg/dL (74-106); POTASSIUM,K 2.5 mmol/L (3.5-5.1); SODIUM,NA 139 mmol/L (136-148)
[2021-10-24] MEDS ORDERED: Thiamine 100 MG in Sodium Chloride 0.9% 100 ML IV SCH (09:00)
[2021-10-24] MEDS ORDERED: Thiamine 200 MG/2 ML MDV IVPUSH SCH (09:00)
[2021-10-24] MEDS ORDERED: Cyclobenzaprine 10 MG Tab PO ONE (09:27)
[2021-10-24] MEDS: Enoxaparin 40 MG/0.4 ML Syringe SUBCUT SCH (09:30)
[2021-10-24] MEDS: Folic Acid 50 MG/10 ML MDV IV SCH (09:35)
[2021-10-24] MEDS: Pantoprazole 40 MG/10 ML Syringe IVPUSH SCH (09:35)
[2021-10-24] MEDS ORDERED: Potassium Chloride 20 MEQ Tab.ER PO ONE (10:04)
[2021-10-24] MEDS ORDERED: Sodium Chloride 0.9% with KCl 1,000 ML IV SCH (10:15)
--- NOTE | 2021-10-24 10:53 | PCM.PN ---
- General Info Date of Service: 10/24/21 Subjective Update: The patient is a 31-year-old male, on day 2 of service, who has a significant past medical history of seasonal allergies, depressive episodes, and anxiety, who was admitted to the medical floor due to alcohol withdrawal symptoms. On interview with the patient today, he continues to have tremulousness, feels awful, and admits to spasming in his lower back and ribs which made it difficult for him to sleep last night. Nonetheless he admits he feels much better today than he did upon admission. He tolerated his clear liquid diet well and had no nausea or vomiting and has asked if he can eat more solid food. As a result we will progress his diet from CLD to a soft diet. His CIWA scores fluctuated last night and at 9 PM he was given 1 mg of Ativan and at 4 AM was given an additional 2 mg. He continues to have low potassium levels and will be supplied with both oral and IV formulations. He denies chest pain, palpitations, fever, suicidal ideation, audiovisual hallucinations, and any issues with urination and/or defecation. When the prospect of inpatient alcohol rehabilitation was introduced to the patient he declined, but he is open to support groups such as alcohol[facility] and would like more information upon discharge. He has no other health concerns at this time. - Review of Systems General: Reports: Fatigue. Denies: Fever, Weakness HEENT: Reports: Headaches. Denies: Sore Throat Pulmonary: Denies: Shortness of Breath, Cough Cardiovascular: Denies: Chest Pain, Palpitations Gastrointestinal: Denies: Abdominal Pain, Nausea, Vomiting Genitourinary: Denies: Dysuria Musculoskeletal: Reports: Other (Spasming of muscles of lower back and ribs) - Patient Data Vitals - Most Recent: Last Vital Signs Temp 98.8 F 10/24/21 04:56 Pulse 106 H 10/24/21 04:56 Resp 20 10/24/21 04:56 BP 162/92 H 10/24/21 04:56 Pulse Ox 96 10/24/21 04:56 Weight - Most Recent: 160 lb I&O - Last 24 Hours: Intake & Output 10/23/21 10/24/21 10/24/21 22:59 06:59 14:59 Intake Total 1780 4926 Output Total 1475 Balance 305 4926 Lab Results Last 24 Hours: Laboratory Results - last 24 hr 10/24/21 10/24/21 Range/Units 06:05 06:05 WBC 6.29 (4.0-11.0) K/uL RBC 4.65 (4.50-5.90) M/uL Hgb 14.4 (13.0-17.0) g/dL Hct 41.2 (38.0-50.0) % MCV 88.6 (80.0-98.0) fL MCH 31.0 (27.0-32.0) pg MCHC 35.0 (31.0-37.0) g/dL RDW Std Deviation 42.4 (28.0-62.0) fl RDW Coeff of Joseline 13 (11.0-15.0) % Plt Count 76 L (150-400) K/uL MPV 11.20 (7.40-12.00) fL Neut % (Auto) 49.7 (48.0-80.0) % Lymph % (Auto) 34.7 (16.0-40.0) % [place] % (Auto) 14.6 (0.0-15.0) % Eos % (Auto) 0.8 (0.0-7.0) % Baso % (Auto) 0.2 (0.0-1.5) % Neut # (Auto) 3.1 (1.4-5.7) K/uL Lymph # (Auto) 2.2 (0.6-2.4) K/uL [place] # (Auto) 0.9 H (0.0-0.8) K/uL Eos # (Auto) 0.1 (0.0-0.7) K/uL Baso # (Auto) 0.0 (0.0-0.1) K/uL Nucleated RBC % 0.0 /100WBC Nucleated RBCs # 0 K/uL Sodium 139 (136-148) mmol/L Potassium 2.5 L (3.5-5.1) mmol/L Chloride 100 (98-107) mmol/L Carbon Dioxide 28.6 (21.0-32.0) mmol/L BUN 5 L (7.0-18.0) mg/dL Creatinine 0.8 (0.8-1.3) mg/dL Est Cr Clr Drug Dosing 139.86 mL/min Estimated GFR (MDRD) > 60.0 ml/min Glucose 80 (74-106) mg/dL Calcium 8.2 L (8.5-10.1) mg/dL Magnesium 2.0 (1.8-2.4) mg/dL Total Bilirubin 2.2 H (0.2-1.0) mg/dL AST 147 H (15-37) IU/L ALT 65 H (14-63) IU/L Alkaline Phosphatase 66 (46-116) U/L Total Protein 6.8 (6.4-8.2) g/dL Albumin 3.3 L (3.4-5.0) g/dL Globulin 3.5 (2.6-4.0) g/dL Albumin/Globulin Ratio 0.9 (0.9-1.6) Med Orders - Current: Current Medications Chlordiazepoxide HCl (Chlordiazepoxide 25 Mg Cap) 50 mg PO Q6H [facility] Stop: 10/25/21 06:01 Last Admin: 10/24/21 06:06 Dose: 50 mg Documented by: Enoxaparin Sodium (Enoxaparin 40 Mg/0.4 Ml Syringe) 40 mg SUBCUT Q24H [facility] Last Admin: 10/24/21 09:30 Dose: Not Given Documented by: Folic Acid (Folic Acid 50 Mg/10 Ml Mdv) 1 mg IV DAILY [facility] Last Admin: 10/24/21 09:35 Dose: 1 mg Documented by: Sodium Chloride (Normal Saline) 1,000 mls @ 150 mls/hr IV ASDIRECTED [facility] Last Admin: 10/24/21 09:48 Dose: 150 mls/hr Documented by: Potassium Chloride/Sodium Chloride (Normal Saline With 40 Meq Kcl) 1,000 mls @ 150 mls/hr IV ASDIRECTED [facility] Lorazepam (Lorazepam 2 Mg/Ml Sdv) 0 mg IVPUSH Q4H PRN; Protocol PRN Reason: Withdrawal Symptoms Last Admin: 10/24/21 09:34 Dose: 1 mg Documented by: Ondansetron HCl (Ondansetron 4 Mg/2 Ml Sdv) 4 mg IVPUSH Q4H PRN PRN Reason: Nausea Last Admin: 10/23/21 09:52 Dose: 4 mg Documented by: Pantoprazole Sodium (Pantoprazole 40 Mg/10 Ml Syringe) 40 mg IVPUSH DAILY [facility] Last Admin: 10/24/21 09:35 Dose: 40 mg Documented by: Sodium Chloride (Sodium Chloride 0.9% 10 Ml Syringe) 10 ml FLUSH ASDIRECTED PRN PRN Reason: Keep Vein Open Last Admin: 10/23/21 04:35 Dose: 10 ml Documented by: Sodium Chloride (Sodium Chloride 0.9% 2.5 Ml Syringe) 2.5 ml FLUSH ASDIRECTED PRN PRN Reason: Keep Vein Open Last Admin: 10/23/21 04:34 Dose: 2.5 ml Documented by: Thiamine HCl (Thiamine 200 Mg/2 Ml Mdv) 100 mg IVPUSH DAILY [facility] Last Admin: 10/24/21 09:45 Dose: 100 mg Documented by: Discontinued Medications Chlordiazepoxide HCl (Chlordiazepoxide 25 Mg Cap) 25 mg PO ONETIME ONE Stop: 10/23/21 05:18 Last Admin: 10/23/21 05:35 Dose: 25 mg Documented by: Cyclobenzaprine HCl (Cyclobenzaprine 10 Mg Tab) 10 mg PO ONETIME ONE Stop: 10/24/21 09:28 Last Admin: 10/24/21 09:45 Dose: 10 mg Documented by: Thiamine HCl 100 mg/ Sodium (Chloride) 101 mls @ 202 mls/hr IV ONETIME ONE Stop: 10/23/21 04:13 Last Admin: 10/23/21 07:33 Dose: Not Given Documented by: Magnesium Sulfate 2 gm/ Premix 50 mls @ 50 mls/hr IV ONETIME ONE Stop: 10/23/21 11:53 Last Admin: 10/23/21 11:46 Dose: 50 mls/hr Documented by: Lorazepam (Lorazepam 2 Mg/Ml Sdv) 2 mg IVPUSH ONETIME ONE Stop: 10/23/21 04:11 Last Admin: 10/23/21 04:34 Dose: 2 mg Documented by: Lorazepam (Lorazepam 2 Mg/Ml Sdv) 1 mg IVPUSH ONETIME ONE Stop: 10/23/21 06:45 Last Admin: 10/23/21 06:50 Dose: 1 mg Documented by: Ondansetron HCl (Ondansetron 4 Mg/2 Ml Sdv) 4 mg IVPUSH ONETIME ONE Stop: 10/23/21 04:11 Last Admin: 10/23/21 04:32 Dose: 4 mg Documented by: Potassium Chloride (Potassium Chloride 20 Meq Tab.Er) 40 meq PO ONETIME ONE Stop: 10/23/21 05:38 Last Admin: 10/23/21 06:39 Dose: 40 meq Documented by: Potassium Chloride (Potassium Chloride 20 Meq Tab.Er) 40 meq PO ONETIME ONE Stop: 10/24/21 10:05 Last Admin: 10/24/21 10:34 Dose: 40 meq Documented by: Thiamine HCl (Thiamine 200 Mg/2 Ml Mdv) 100 mg IVPUSH ONETIME ONE Stop: 10/23/21 04:45 Last Admin: 10/23/21 05:11 Dose: 100 mg Documented by: - Exam General: Alert, Oriented, Cooperative HEENT: Mucous Membr. Moist/[place] Neck: Trachea Midline Lungs: Clear to Auscultation, Normal Respiratory Effort Cardiovascular: Regular Rate, Regular Rhythm GI/Abdominal Exam: Normal Bowel Sounds, Soft Neurological: Other (Tremors of both hands) - Patient Data Lab Results Last 24 hrs: Laboratory Results - last 24 hr 10/24/21 10/24/21 Range/Units 06:05 06:05 WBC 6.29 (4.0-11.0) K/uL RBC 4.65 (4.50-5.90) M/uL Hgb 14.4 (13.0-17.0) g/dL Hct 41.2 (38.0-50.0) % MCV 88.6 (80.0-98.0) fL MCH 31.0 (27.0-32.0) pg MCHC 35.0 (31.0-37.0) g/dL RDW Std Deviation 42.4 (28.0-62.0) fl RDW Coeff of Joseline 13 (11.0-15.0) % Plt Count 76 L (150-400) K/uL MPV 11.20 (7.40-12.00) fL Neut % (Auto) 49.7 (48.0-80.0) % Lymph % (Auto) 34.7 (16.0-40.0) % [place] % (Auto) 14.6 (0.0-15.0) % Eos % (Auto) 0.8 (0.0-7.0) % Baso % (Auto) 0.2 (0.0-1.5) % Neut # (Auto) 3.1 (1.4-5.7) K/uL Lymph # (Auto) 2.2 (0.6-2.4) K/uL [place] # (Auto) 0.9 H (0.0-0.8) K/uL Eos # (Auto) 0.1 (0.0-0.7) K/uL Baso # (Auto) 0.0 (0.0-0.1) K/uL Nucleated RBC % 0.0 /100WBC Nucleated RBCs # 0 K/uL Sodium 139 (136-148) mmol/L Potassium 2.5 L (3.5-5.1) mmol/L Chloride 100 (98-107) mmol/L Carbon Dioxide 28.6 (21.0-32.0) mmol/L BUN 5 L (7.0-18.0) mg/dL Creatinine 0.8 (0.8-1.3) mg/dL Est Cr Clr Drug Dosing 139.86 mL/min Estimated GFR (MDRD) > 60.0 ml/min Glucose 80 (74-106) mg/dL Calcium 8.2 L (8.5-10.1) mg/dL Magnesium 2.0 (1.8-2.4) mg/dL Total Bilirubin 2.2 H (0.2-1.0) mg/dL AST 147 H (15-37) IU/L ALT 65 H (14-63) IU/L Alkaline Phosphatase 66 (46-116) U/L Total Protein 6.8 (6.4-8.2) g/dL Albumin 3.3 L (3.4-5.0) g/dL Globulin 3.5 (2.6-4.0) g/dL Albumin/Globulin Ratio 0.9 (0.9-1.6) Result Diagrams: 10/24/21 06:05 10/24/21 06:05 Sepsis Event Note - Evaluation Sepsis Screening Result: No Definite Risk - Focused Exam Vital Signs: Vital Signs Temp Pulse Resp BP Pulse Ox 10/24/21 04:56 98.8 F 106 H 20 162/92 H 96 10/24/21 00:00 99.5 F 96 20 139/91 H 97 - Problem List & Annotations (1) Hypomagnesemia SNOMED Code(s): 503527035 Code(s): E83.42 - HYPOMAGNESEMIA Status: Acute Current Visit: Yes (2) Hypokalemia SNOMED Code(s): 91826373 Code(s): E87.6 - HYPOKALEMIA Status: Acute Current Visit: Yes (3) Alcohol withdrawal SNOMED Code(s): 076786253 Code(s): F10.239 - ALCOHOL DEPENDENCE WITH WITHDRAWAL, UNSPECIFIED Status: Acute Current Visit: Yes (4) Tremor SNOMED Code(s): 77949412 Code(s): R25.1 - TREMOR, UNSPECIFIED Status: Acute Current Visit: Yes (5) Alcohol abuse SNOMED Code(s): 44601987 Code(s): F10.10 - ALCOHOL ABUSE, UNCOMPLICATED Status: Chronic Current Visit: No (6) Anxiety SNOMED Code(s): 96363841 Code(s): F41.9 - ANXIETY DISORDER, UNSPECIFIED Status: Chronic Current Visit: No (7) Spasm SNOMED Code(s): 58050710 Code(s): R25.2 - CRAMP AND SPASM Status: Acute Current Visit: Yes - Problem List Review Problem List Initiated/Reviewed/Updated: Yes - My Orders Last 24 Hours: My Active Orders 10/23/21 09:48 Code Status [Resuscitation Status] Routine 10/23/21 09:52 LORazepam [Ativan] See Protocol IVPUSH Q4H PRN 10/23/21 10:00 Enoxaparin [Lovenox] 40 mg SUBCUT Q24H Folic Acid 1 mg IV DAILY Pantoprazole [ProTONIX] 40 mg IVPUSH DAILY 10/24/21 10:15 Sodium Chloride 0.9% with KCl [Normal Saline with 40 mEq KCl] 1,000 ml IV ASDIRECTED 10/24/21 Lunch Soft Diet [DIET] 10/25/21 05:11 CBC WITH AUTO DIFF [HEME] AM CMP [COMPREHENSIVE METABOLIC PN,CMP] [CHEM] AM MAGNESIUM [CHEM] AM 10/26/21 05:11 CBC WITH AUTO DIFF [HEME] AM CMP [COMPREHENSIVE METABOLIC PN,CMP] [CHEM] AM 10/27/21 05:11 CBC WITH AUTO DIFF [HEME] AM CMP [COMPREHENSIVE METABOLIC PN,CMP] [CHEM] AM 10/28/21 05:11 CBC WITH AUTO DIFF [HEME] AM CMP [COMPREHENSIVE METABOLIC PN,CMP] [CHEM] AM - Assessment Assessment:: 1. Alcohol withdrawal symptoms -The patient is on CIWA protocol, will supply Ativan as needed -Patient is not nauseous, transitioned diet from CLD to soft -Continue with thiamine and folic acid supplementation -Continue with Librium every 6 hours -Monitor with daily CBC/CMP 2. Hypokalemia -The patient was given 40 mEq of potassium chloride IV and 40 mEq of potassium chloride per oral route -We will continue to monitor potassium levels with daily CMP 3. Hypomagnesemia -Resolved
[2021-10-24] MEDS ORDERED: Sodium Chloride 0.9% with KCl 1,000 ML IV ONE (12:45)
--- NOTE | 2021-10-24 13:02 | PCM.DCSUM1 ---
<Sonya Biggs - Last Filed: 10/24/21 12:57> Discharge Summary - Hospital Course Free Text/Narrative:: The patient is a 31-year-old male, on day 2 of service, who has a significant past medical history of seasonal allergies, depressive episodes, and anxiety, who was admitted to the medical floor due to alcohol withdrawal symptoms. Throughout the patient's hospital stay he was treated for his alcohol withdrawal with CIWA protocol and received Ativan on different occasions. He was also on Librium 50 mg every 6 hours as needed for additional control of his withdrawal symptoms and for anxiety. He was also hypokalemic both days and was supplied with both oral and IV formulations of potassium chloride. He initially was on a clear liquid diet but then was transitioned to a soft diet because he was able to tolerate food and no longer had any nausea or vomiting which he initially presented with. On discharge the patient will be given a prescription for Librium 25 mg every 6 hours for a 3-day course. He is to follow-up with me as his new primary care provider in 1 to 2 weeks time to discuss alcohol abstinence, potential inpatient rehabilitation, and other support options. He has been advised to return to the hospital if he has increasingly worse tremors, withdrawal symptoms, chest pain, or seizure. He has also been counseled to be compliant with the Librium medication and to take it at scheduled times. The patient is now stable and can be discharged. - Discharge Data Discharge Date: 10/24/21 Discharge Disposition: Home, Self-Care 01 Condition: Stable - Referral to Home Health Primary Care Physician: PCP None - Discharge Diagnosis/Problem(s) (1) Hypomagnesemia SNOMED Code(s): 393343714 ICD Code: E83.42 - HYPOMAGNESEMIA Status: Acute Current Visit: Yes (2) Hypokalemia SNOMED Code(s): 94480122 ICD Code: E87.6 - HYPOKALEMIA Status: Acute Current Visit: Yes (3) Alcohol withdrawal SNOMED Code(s): 841263711 ICD Code: F10.239 - ALCOHOL DEPENDENCE WITH WITHDRAWAL, UNSPECIFIED Status: Acute Current Visit: Yes (4) Tremor SNOMED Code(s): 93952538 ICD Code: R25.1 - TREMOR, UNSPECIFIED Status: Acute Current Visit: Yes (5) Alcohol abuse SNOMED Code(s): 53316683 ICD Code: F10.10 - ALCOHOL ABUSE, UNCOMPLICATED Status: Chronic Current Visit: No (6) Anxiety SNOMED Code(s): 01007646 ICD Code: F41.9 - ANXIETY DISORDER, UNSPECIFIED Status: Chronic Current Visit: No (7) Spasm SNOMED Code(s): 65339943 ICD Code: R25.2 - CRAMP AND SPASM Status: Acute Current Visit: Yes - Patient Instructions Diet: Regular Diet as Tolerated Activity: As Tolerated Showering/Bathing: May Shower - Discharge Plan Forms: ED Department Discharge Referrals: Sonya Biggs MD [Resident] - - Discharge Summary/Plan Comment DC Time >30 min.: Yes Total # of Minutes for Discharge Time: 35 minutes - Review of Systems General: Reports: Fatigue. Denies: Weakness HEENT: Denies: Headaches, Sore Throat Pulmonary: Denies: Shortness of Breath, Cough Cardiovascular: Denies: Chest Pain, Palpitations Gastrointestinal: Denies: Abdominal Pain Genitourinary: Denies: Dysuria Neurological: Reports: Tremors - Patient Data Vitals - Most Recent: Last Vital Signs Temp 98.2 F 10/24/21 11:54 Pulse 89 10/24/21 11:54 Resp 17 10/24/21 11:54 BP 156/107 H 10/24/21 11:54 Pulse Ox 99 10/24/21 11:54 Weight - Most Recent: 160 lb I&O - Last 24 hours: Intake & Output 10/23/21 10/24/21 10/24/21 22:59 06:59 14:59 Intake Total 1780 4926 Output Total 1475 Balance 305 4926 Lab Results - Last 24 hrs: Laboratory Results - last 24 hr 10/24/21 10/24/21 Range/Units 06:05 06:05 WBC 6.29 (4.0-11.0) K/uL RBC 4.65 (4.50-5.90) M/uL Hgb 14.4 (13.0-17.0) g/dL Hct 41.2 (38.0-50.0) % MCV 88.6 (80.0-98.0) fL MCH 31.0 (27.0-32.0) pg MCHC 35.0 (31.0-37.0) g/dL RDW Std Deviation 42.4 (28.0-62.0) fl RDW Coeff of Joseline 13 (11.0-15.0) % Plt Count 76 L (150-400) K/uL MPV 11.20 (7.40-12.00) fL Neut % (Auto) 49.7 (48.0-80.0) % Lymph % (Auto) 34.7 (16.0-40.0) % [place] % (Auto) 14.6 (0.0-15.0) % Eos % (Auto) 0.8 (0.0-7.0) % Baso % (Auto) 0.2 (0.0-1.5) % Neut # (Auto) 3.1 (1.4-5.7) K/uL Lymph # (Auto) 2.2 (0.6-2.4) K/uL [place] # (Auto) 0.9 H (0.0-0.8) K/uL Eos # (Auto) 0.1 (0.0-0.7) K/uL Baso # (Auto) 0.0 (0.0-0.1) K/uL Nucleated RBC % 0.0 /100WBC Nucleated RBCs # 0 K/uL Sodium 139 (136-148) mmol/L Potassium 2.5 L (3.5-5.1) mmol/L Chloride 100 (98-107) mmol/L Carbon Dioxide 28.6 (21.0-32.0) mmol/L BUN 5 L (7.0-18.0) mg/dL Creatinine 0.8 (0.8-1.3) mg/dL Est Cr Clr Drug Dosing 139.86 mL/min Estimated GFR (MDRD) > 60.0 ml/min Glucose 80 (74-106) mg/dL Calcium 8.2 L (8.5-10.1) mg/dL Magnesium 2.0 (1.8-2.4) mg/dL Total Bilirubin 2.2 H (0.2-1.0) mg/dL AST 147 H (15-37) IU/L ALT 65 H (14-63) IU/L Alkaline Phosphatase 66 (46-116) U/L Total Protein 6.8 (6.4-8.2) g/dL Albumin 3.3 L (3.4-5.0) g/dL Globulin 3.5 (2.6-4.0) g/dL Albumin/Globulin Ratio 0.9 (0.9-1.6) Med Orders - Current: Current Medications Chlordiazepoxide HCl (Chlordiazepoxide 25 Mg Cap) 50 mg PO Q6H [facility] Stop: 10/25/21 06:01 Last Admin: 10/24/21 11:56 Dose: 50 mg Documented by: Enoxaparin Sodium (Enoxaparin 40 Mg/0.4 Ml Syringe) 40 mg SUBCUT Q24H [facility] Last Admin: 10/24/21 09:30 Dose: Not Given Documented by: Folic Acid (Folic Acid 50 Mg/10 Ml Mdv) 1 mg IV DAILY [facility] Last Admin: 10/24/21 09:35 Dose: 1 mg Documented by: Sodium Chloride (Normal Saline) 1,000 mls @ 150 mls/hr IV ASDIRECTED [facility] Last Admin: 10/24/21 09:48 Dose: 150 mls/hr Documented by: Potassium Chloride/Sodium Chloride (Normal Saline With 40 Meq Kcl) 1,000 mls @ 250 mls/hr IV ONETIME ONE Stop: 10/24/21 16:44 Last Admin: 10/24/21 12:52 Dose: 250 mls/hr Documented by: Lorazepam (Lorazepam 2 Mg/Ml Sdv) 0 mg IVPUSH Q4H PRN; Protocol PRN Reason: Withdrawal Symptoms Last Admin: 10/24/21 09:34 Dose: 1 mg Documented by: Ondansetron HCl (Ondansetron 4 Mg/2 Ml Sdv) 4 mg IVPUSH Q4H PRN PRN Reason: Nausea Last Admin: 10/23/21 09:52 Dose: 4 mg Documented by: Pantoprazole Sodium (Pantoprazole 40 Mg/10 Ml Syringe) 40 mg IVPUSH DAILY [facility] Last Admin: 10/24/21 09:35 Dose: 40 mg Documented by: Sodium Chloride (Sodium Chloride 0.9% 10 Ml Syringe) 10 ml FLUSH ASDIRECTED PRN PRN Reason: Keep Vein Open Last Admin: 10/23/21 04:35 Dose: 10 ml Documented by: Sodium Chloride (Sodium Chloride 0.9% 2.5 Ml Syringe) 2.5 ml FLUSH ASDIRECTED PRN PRN Reason: Keep Vein Open Last Admin: 10/23/21 04:34 Dose: 2.5 ml Documented by: Thiamine HCl (Thiamine 200 Mg/2 Ml Mdv) 100 mg IVPUSH DAILY [facility] Last Admin: 10/24/21 09:45 Dose: 100 mg Documented by: Discontinued Medications Chlordiazepoxide HCl (Chlordiazepoxide 25 Mg Cap) 25 mg PO ONETIME ONE Stop: 10/23/21 05:18 Last Admin: 10/23/21 05:35 Dose: 25 mg Documented by: Cyclobenzaprine HCl (Cyclobenzaprine 10 Mg Tab) 10 mg PO ONETIME ONE Stop: 10/24/21 09:28 Last Admin: 10/24/21 09:45 Dose: 10 mg Documented by: Thiamine HCl 100 mg/ Sodium (Chloride) 101 mls @ 202 mls/hr IV ONETIME ONE Stop: 10/23/21 04:13 Last Admin: 10/23/21 07:33 Dose: Not Given Documented by: Magnesium Sulfate 2 gm/ Premix 50 mls @ 50 mls/hr IV ONETIME ONE Stop: 10/23/21 11:53 Last Admin: 10/23/21 11:46 Dose: 50 mls/hr Documented by: Potassium Chloride/Sodium Chloride (Normal Saline With 40 Meq Kcl) 1,000 mls @ 150 mls/hr IV ASDIRECTED [facility] Lorazepam (Lorazepam 2 Mg/Ml Sdv) 2 mg IVPUSH ONETIME ONE Stop: 10/23/21 04:11 Last Admin: 10/23/21 04:34 Dose: 2 mg Documented by: Lorazepam (Lorazepam 2 Mg/Ml Sdv) 1 mg IVPUSH ONETIME ONE Stop: 10/23/21 06:45 Last Admin: 10/23/21 06:50 Dose: 1 mg Documented by: Ondansetron HCl (Ondansetron 4 Mg/2 Ml Sdv) 4 mg IVPUSH ONETIME ONE Stop: 10/23/21 04:11 Last Admin: 10/23/21 04:32 Dose: 4 mg Documented by: Potassium Chloride (Potassium Chloride 20 Meq Tab.Er) 40 meq PO ONETIME ONE Stop: 10/23/21 05:38 Last Admin: 10/23/21 06:39 Dose: 40 meq Documented by: Potassium Chloride (Potassium Chloride 20 Meq Tab.Er) 40 meq PO ONETIME ONE Stop: 10/24/21 10:05 Last Admin: 10/24/21 10:34 Dose: 40 meq Documented by: Thiamine HCl (Thiamine 200 Mg/2 Ml Mdv) 100 mg IVPUSH ONETIME ONE Stop: 10/23/21 04:45 Last Admin: 10/23/21 05:11 Dose: 100 mg Documented by: - Exam General: Reports: Alert, Oriented, Cooperative HEENT: Reports: Mucous Membr. Moist/[place] Neck: Reports: Trachea Midline Lungs: Reports: Clear to Auscultation, Normal Respiratory Effort Cardiovascular: Reports: Regular Rate, Regular Rhythm GI/Abdominal Exam: Normal Bowel Sounds, Soft, Non-Tender Extremities: Other (Slight hand tremor) <Marty Carvalho - Last Filed: 10/24/21 13:59> Discharge Summary - Hospital Course Free Text/Narrative:: Discharge pt with librium. Diagnosis: Stroke: No - Referral to Home Health Primary Care Physician: PCP None - Discharge Summary/Plan Comment DC Time >30 min.: Yes - Patient Data Vitals - Most Recent: Last Vital Signs Temp 98.2 F 10/24/21 11:54 Pulse 89 10/24/21 11:54 Resp 17 10/24/21 11:54 BP 156/107 H 10/24/21 11:54 Pulse Ox 99 10/24/21 11:54 I&O - Last 24 hours: Intake & Output 10/23/21 10/24/21 10/24/21 22:59 06:59 14:59 Intake Total 1780 4926 Output Total 1475 Balance 305 4926 Lab Results - Last 24 hrs: Laboratory Results - last 24 hr 10/24/21 10/24/21 Range/Units 06:05 06:05 WBC 6.29 (4.0-11.0) K/uL RBC 4.65 (4.50-5.90) M/uL Hgb 14.4 (13.0-17.0) g/dL Hct 41.2 (38.0-50.0) % MCV 88.6 (80.0-98.0) fL MCH 31.0 (27.0-32.0) pg MCHC 35.0 (31.0-37.0) g/dL RDW Std Deviation 42.4 (28.0-62.0) fl RDW Coeff of Joseline 13 (11.0-15.0) % Plt Count 76 L (150-400) K/uL MPV 11.20 (7.40-12.00) fL Neut % (Auto) 49.7 (48.0-80.0) % Lymph % (Auto) 34.7 (16.0-40.0) % [place] % (Auto) 14.6 (0.0-15.0) % Eos % (Auto) 0.8 (0.0-7.0) % Baso % (Auto) 0.2 (0.0-1.5) % Neut # (Auto) 3.1 (1.4-5.7) K/uL Lymph # (Auto) 2.2 (0.6-2.4) K/uL [place] # (Auto) 0.9 H (0.0-0.8) K/uL Eos # (Auto) 0.1 (0.0-0.7) K/uL Baso # (Auto) 0.0 (0.0-0.1) K/uL Nucleated RBC % 0.0 /100WBC Nucleated RBCs # 0 K/uL Sodium 139 (136-148) mmol/L Potassium 2.5 L (3.5-5.1) mmol/L Chloride 100 (98-107) mmol/L Carbon Dioxide 28.6 (21.0-32.0) mmol/L BUN 5 L (7.0-18.0) mg/dL Creatinine 0.8 (0.8-1.3) mg/dL Est Cr Clr Drug Dosing 139.86 mL/min Estimated GFR (MDRD) > 60.0 ml/min Glucose 80 (74-106) mg/dL Calcium 8.2 L (8.5-10.1) mg/dL Magnesium 2.0 (1.8-2.4) mg/dL Total Bilirubin 2.2 H (0.2-1.0) mg/dL AST 147 H (15-37) IU/L ALT 65 H (14-63) IU/L Alkaline Phosphatase 66 (46-116) U/L Total Protein 6.8 (6.4-8.2) g/dL Albumin 3.3 L (3.4-5.0) g/dL Globulin 3.5 (2.6-4.0) g/dL Albumin/Globulin Ratio 0.9 (0.9-1.6) Med Orders - Current: Current Medications Chlordiazepoxide HCl (Chlordiazepoxide 25 Mg Cap) 50 mg PO Q6H [facility] Stop: 10/25/21 06:01 Last Admin: 10/24/21 11:56 Dose: 50 mg Documented by: Enoxaparin Sodium (Enoxaparin 40 Mg/0.4 Ml Syringe) 40 mg SUBCUT Q24H [facility] Last Admin: 10/24/21 09:30 Dose: Not Given Documented by: Folic Acid (Folic Acid 50 Mg/10 Ml Mdv) 1 mg IV DAILY [facility] Last Admin: 10/24/21 09:35 Dose: 1 mg Documented by: Sodium Chloride (Normal Saline) 1,000 mls @ 150 mls/hr IV ASDIRECTED [facility] Last Admin: 10/24/21 09:48 Dose: 150 mls/hr Documented by: Potassium Chloride/Sodium Chloride (Normal Saline With 40 Meq Kcl) 1,000 mls @ 250 mls/hr IV ONETIME ONE Stop: 10/24/21 16:44 Last Admin: 10/24/21 12:52 Dose: 250 mls/hr Documented by: Lorazepam (Lorazepam 2 Mg/Ml Sdv) 0 mg IVPUSH Q4H PRN; Protocol PRN Reason: Withdrawal Symptoms Last Admin: 10/24/21 09:34 Dose: 1 mg Documented by: Ondansetron HCl (Ondansetron 4 Mg/2 Ml Sdv) 4 mg IVPUSH Q4H PRN PRN Reason: Nausea Last Admin: 10/23/21 09:52 Dose: 4 mg Documented by: Pantoprazole Sodium (Pantoprazole 40 Mg/10 Ml Syringe) 40 mg IVPUSH DAILY [facility] Last Admin: 10/24/21 09:35 Dose: 40 mg Documented by: Sodium Chloride (Sodium Chloride 0.9% 10 Ml Syringe) 10 ml FLUSH ASDIRECTED PRN PRN Reason: Keep Vein Open Last Admin: 10/23/21 04:35 Dose: 10 ml Documented by: Sodium Chloride (Sodium Chloride 0.9% 2.5 Ml Syringe) 2.5 ml FLUSH ASDIRECTED PRN PRN Reason: Keep Vein Open Last Admin: 10/23/21 04:34 Dose: 2.5 ml Documented by: Thiamine HCl (Thiamine 200 Mg/2 Ml Mdv) 100 mg IVPUSH DAILY [facility] Last Admin: 10/24/21 09:45 Dose: 100 mg Documented by: Discontinued Medications Chlordiazepoxide HCl (Chlordiazepoxide 25 Mg Cap) 25 mg PO ONETIME ONE Stop: 10/23/21 05:18 Last Admin: 10/23/21 05:35 Dose: 25 mg Documented by: Cyclobenzaprine HCl (Cyclobenzaprine 10 Mg Tab) 10 mg PO ONETIME ONE Stop: 10/24/21 09:28 Last Admin: 10/24/21 09:45 Dose: 10 mg Documented by: Thiamine HCl 100 mg/ Sodium (Chloride) 101 mls @ 202 mls/hr IV ONETIME ONE Stop: 10/23/21 04:13 Last Admin: 10/23/21 07:33 Dose: Not Given Documented by: Magnesium Sulfate 2 gm/ Premix 50 mls @ 50 mls/hr IV ONETIME ONE Stop: 10/23/21 11:53 Last Admin: 10/23/21 11:46 Dose: 50 mls/hr Documented by: Potassium Chloride/Sodium Chloride (Normal Saline With 40 Meq Kcl) 1,000 mls @ 150 mls/hr IV ASDIRECTED [facility] Lorazepam (Lorazepam 2 Mg/Ml Sdv) 2 mg IVPUSH ONETIME ONE Stop: 10/23/21 04:11 Last Admin: 10/23/21 04:34 Dose: 2 mg Documented by: Lorazepam (Lorazepam 2 Mg/Ml Sdv) 1 mg IVPUSH ONETIME ONE Stop: 10/23/21 06:45 Last Admin: 10/23/21 06:50 Dose: 1 mg Documented by: Ondansetron HCl (Ondansetron 4 Mg/2 Ml Sdv) 4 mg IVPUSH ONETIME ONE Stop: 10/23/21 04:11 Last Admin: 10/23/21 04:32 Dose: 4 mg Documented by: Potassium Chloride (Potassium Chloride 20 Meq Tab.Er) 40 meq PO ONETIME ONE Stop: 10/23/21 05:38 Last Admin: 10/23/21 06:39 Dose: 40 meq Documented by: Potassium Chloride (Potassium Chloride 20 Meq Tab.Er) 40 meq PO ONETIME ONE Stop: 10/24/21 10:05 Last Admin: 10/24/21 10:34 Dose: 40 meq Documented by: Thiamine HCl (Thiamine 200 Mg/2 Ml Mdv) 100 mg IVPUSH ONETIME ONE Stop: 10/23/21 04:45 Last Admin: 10/23/21 05:11 Dose: 100 mg Documented by:
[2021-10-24 16:13] VITALS: BP 118/84; PULSE 81
== END 2021-10-24 17:35 | disposition home or self-care (01) | DRG 897 ==
LOC: MW.ED 04:00 → MW.MS 06:30
PROVIDERS: ADMIT Hospitalist; ATTEND Hospitalist
DX: F10.239 Alcohol dependence with withdrawal, unspecified (principal); F32.A Depression, unspecified; F41.9 Anxiety disorder, unspecified; E87.6 Hypokalemia; E83.42 Hypomagnesemia; R25.1 Tremor, unspecified; R25.2 Cramp and spasm; Z20.822 Contact with and (suspected) exposure to COVID-19
CPT/HCPCS: 36415; 80053; 80305-QW; 80307; 83735; 85025; 96374; 96375; 99285-25; A9270-GY; C9113; J1650; J2060; J2405; J3411; J3475; J3480; J7030; U0002